=== PATIENT | male | born 1945 | race African-American/Black ===

== ENCOUNTER 2017-02-05 13:03 | Emergency (ER) | payer MEDICARE, OTHER ==
--- NOTE | 2017-02-05 13:18 | PDOC ---
History of Present Illness - General History Source: Patient Exam Limitations: No Limitations - History of Present Illness Initial Comments: 02/05/17 13:32 The patient is a 71 year old male, with a significant past medical history of diabetes mellitus, HTN and HLD, who presents to the emergency department with elevated blood sugar levels onset today. He reports that he was [place] and became [place]zy causing him a police crime scene technician to come over to help him. He notes that he also feels generally weak. The patient denies chest pain, shortness of breath and headache. Denies fever, chills, nausea, vomit, diarrhea and constipation. Denies dysuria, frequency, urgency and hematuria. Allergies: Penicillin Past surgical history: Mandular surgery (2015), spinal neck fusion (2007) Social history: Former smoker (quit 3 months ago) (50 year tobacco use). No alcohol or drug use reported PMD: Dr. Wong <Salvatore Perez - Last Filed: 02/05/17 13:32> <Mellisa Garsia - Last Filed: 02/05/17 15:36> - General Chief Complaint: Blood Sugar Problem Stated Complaint: BLOOD SUGAR PROBLEM Time Seen by Provider: 02/05/17 13:13 Past History <Salvatore Perez - Last Filed: 02/05/17 13:32> <Mellisa Garsia - Last Filed: 02/05/17 15:36> - Past Medical History Allergies/Adverse Reactions: Allergies Allergy/AdvReac Type Severity Reaction Status Date / Time Penicillins Allergy Verified 02/05/17 13:23 Review of Systems - Review of Systems Able to Perform ROS?: Yes Comments:: 02/05/17 13:32 GENERAL/CONSTITUTIONAL: (+) Generalized weakness. No fever or chills. HEAD, EYES, EARS, NOSE AND THROAT: No change in vision. No ear pain or discharge. No sore throat. CARDIOVASCULAR: No chest pain or shortness of breath RESPIRATORY: No cough, wheezing, or hemoptysis. GASTROINTESTINAL: No nausea, vomiting, diarrhea or constipation. GENITOURINARY: No dysuria, frequency, or change in urination. MUSCULOSKELETAL: No joint or muscle swelling or pain. No neck or back pain. SKIN: No rash NEUROLOGIC: (+) Dizziness. No headache, loss of consciousness, or change in strength/sensation. ENDOCRINE: No increased thirst. No abnormal weight change HEMATOLOGIC/LYMPHATIC: No anemia, easy bleeding, or history of blood clots. ALLERGIC/IMMUNOLOGIC: No hives or skin allergy. <Salvatore Perez - Last Filed: 02/05/17 13:32> *Physical Exam - Vital Signs Last Vital Signs Temp Pulse Resp BP Pulse Ox 98.1 F 79 18 122/67 100 02/05/17 13:14 02/05/17 13:14 02/05/17 13:14 02/05/17 13:14 02/05/17 13:14 - Physical Exam Comments: 02/05/17 13:32 GENERAL: Awake, alert, and fully oriented, in no acute distress HEAD: No signs of trauma, normocephalic, atraumatic EYES: PERRLA, EOMI, sclera anicteric, conjunctiva clear ENT: Auricles normal inspection, hearing grossly normal, nares patent, oropharynx clear without exudates. Moist mucosa NECK: Normal ROM, supple, no lymphadenopathy, JVD, or masses LUNGS: No distress, speaks full sentences, clear to auscultation bilaterally HEART: Regular rate and rhythm, normal S1 and S2, no murmurs, rubs or gallops, peripheral pulses normal and equal bilaterally. ABDOMEN: Soft, nontender, normoactive bowel sounds. No guarding, no rebound. No masses EXTREMITIES: Normal inspection, Normal range of motion, no edema. No clubbing or cyanosis. NEUROLOGICAL: Cranial nerves II through XII grossly intact. Normal speech, normal gait, no focal sensorimotor deficits SKIN: Warm, Dry, normal turgor, no rashes or lesions noted. <Salvatore Perez - Last Filed: 02/05/17 13:32> ED Treatment Course - LABORATORY CBC & Chemistry Diagram: 02/05/17 14:00 02/05/17 14:00 <Mellisa Garsia - Last Filed: 02/05/17 15:36> Medical Decision Making - Medical Decision Making 02/05/17 14:55 71-year-old male brought in by ambulance with complaint of feeling dizziness today. He had been walking outside and the temperature is in the 80s today. He is a diabetic and was walking down along the [place] going to [facility] when he started to feel dizzy. The police found him leaning on the ramp near the park and he was brought in. He is alert and oriented 3 -He had no specific complaints upon arrival PCP is Dr. Dubon Past medical history significant for diabetes, hypertension, hyperlipidemia Medications include Lantus 10 at nighttime, Advair, Spiriva, Lasix, simvastatin , metoprolol, lisinopril and gabapentin and naproxen Past surgical history see spine fusion in 2007, and a mandible fracture last year Social history [id number] tobacco states he quit 3 months ago. He denies alcohol Patient denied nausea, vomiting, diarrhea, chest pain, shortness of breath EKG is normal sinus rhythm at 77 bpm 02/05/17 15:32 Glucose is only 140. His bun was 25 and creatinine 1.5. No prior labs for comparison EKG is normal sinus rhythm at 77 Current is negative CBC was unremarkable. Patient received IV fluids and now he wants to go home <Mellisa Garsia - Last Filed: 02/05/17 15:36> *DC/Admit/Observation/Transfer - Attestations Scribe Attestion: 02/05/17 13:32 Documentation prepared by Salvatore Perez, acting as veterinary medical officer for Mellisa Garsia MD <Salvatore Perez - Last Filed: 02/05/17 13:32> <Mellisa Garsia - Last Filed: 02/05/17 15:36> Diagnosis at time of Disposition: Dizziness Type 2 diabetes mellitus with hyperglycemia Qualifiers: Diabetes mellitus ocean transportation intermediary insulin use: without chcf use Qualified Code(s ): E11.65 - Type 2 diabetes mellitus with hyperglycemia - Discharge Dispostion Disposition: HOME Condition at time of disposition: Stable - Patient Instructions Printed Discharge Instructions: DI for Hyperglycemia -- Adult, DI for Dizziness -Nonvertigo Additional Instructions: please follow up with DrGrasso this week Return for any recurrent or worsening symptoms
[2017-02-05 13:23] VITALS: BMI 26.6
[2017-02-05] MEDS ORDERED: SODIUM CHLORIDE 1,000 ML IV STA (13:38)
[2017-02-05 14:02] LABS: ARTERIAL BLD GAS O2 SATURATION 94.8 % (90-98.9); ARTERIAL BLOOD GAS BASE EXCESS 0.6 meq/l (-2-2); ARTERIAL BLOOD GAS HCO3 24.8 meq/L (22-26); ARTERIAL BLOOD GAS pH 7.41 (7.35-7.45)
[2017-02-05 14:03] LABS: ALLENS TEST POSITIVE; ART PUNCT SITE RIGHT RADIAL; LPM/O2% 21%; METHEMOGLOBIN 0.7 % (0.4-1.5); PT. ON O2? NO; TYPE OF O2 ROOM AIR
[2017-02-05 14:20] LABS: BASOPHIL 0.8 % (0-2.0); EOSINOPHIL 1.7 % (0-4.5); MCH 29.3 pg (25.7-33.7); MCHC 33.9 g/dl (32.0-35.9); MEAN CELL VOLUME 86.6 fl (80-96); MEAN PLT VOLUME 9.2 fl (7.5-11.1); PLATELET COUNT 182 K/MM3 (134-434); RDW 14.3 % (11.9-15.9); WHITE BLOOD COUNT 4.9 K/mm3 (4.0-10.0)
[2017-02-05 14:31] LABS: INR 1.12 (0.82-1.09); PROTHROMBIN TIME (PATIENT) 12.4 SEC (9.98-11.88)
[2017-02-05 14:56] LABS: ALBUMIN 4.4 g/dl (3.4-5.0); ANION GAP 9 (8-16); BILIRUBIN,TOTAL 0.3 mg/dL (0.2-1.0); CALCIUM 9.3 mg/dL (8.5-10.1); CO2 28 mmol/L (21-32); CREATININE 1.5 mg/dL (0.7-1.3); GLUCOSE,RANDOM 140 mg/dL (74-106); SGOT/AST 22 U/L (15-37); SGPT/ALT 25 U/L (12-78)
[2017-02-05 14:58] LABS: ALK PHOS 68 U/L (45-117); TROPONIN I < 0.02 ng/ml (0.00-0.05)
[2017-02-05 16:07] VITALS: BP 146/76; PULSE 56; TEMP 97.6
--- NOTE | 2017-02-05 20:07 | EKG ---
Test Reason : Blood Pressure : / mmHG Vent. Rate : 077 BPM Atrial Rate : 077 BPM P-R Int : 164 ms QRS Dur : 088 ms QT Int : 362 ms P-R-T Axes : 062 -01 035 degrees QTc Int : 409 ms NORMAL SINUS RHYTHM POSSIBLE LEFT ATRIAL ENLARGEMENT NO PREVIOUS ECGS AVAILABLE Confirmed by MAN DINH, MAGDALENO ([id number]) on 02/05/2017 8:06:50 PM Referred By: Confirmed By:MAGDALENO CONWAY MD
== END 2017-02-05 16:07 | disposition home or self-care (01) ==
LOC: JER 13:03
PROC: 3E0337Z Introduction of Electrolytic and Water Balance Substance into Peripheral Vein, Percutaneous Approach (ICD-10-PCS; principal; 2017-02-05)
DX: E11.65 Type 2 diabetes mellitus with hyperglycemia (principal); R42 Dizziness and giddiness; Z79.4 Long term (current) use of insulin; I10 Essential (primary) hypertension; E78.00 Pure hypercholesterolemia, unspecified
CPT/HCPCS: 36600; 80053; 82009; 82375; 82550; 82553; 82803; 83050; 84484; 85025; 85610; 93005; 93010; 96360; 99283-25

== ENCOUNTER 2019-07-03 12:52 | Emergency (ER) | payer MEDICARE, OTHER ==
[2019-07-03 13:02] VITALS: BP 148/69; PULSE 79; TEMP 98; BMI 29.5
[2019-07-03] MEDS ORDERED: FLUORESCEIN NA 1 EA STRIP ONE (13:27)
--- NOTE | 2019-07-03 14:16 | PDOC ---
History of Present Illness - General Chief Complaint: Eye Problem Stated Complaint: FOREIGN BODY IN RT EYE Time Seen by Provider: 07/03/19 13:14 History Source: Patient Exam Limitations: No Limitations - History of Present Illness Initial Comments: 07/03/19 14:10 73-year-old male with history of diabetes, hypertension, hyperlipidemia presents complaining of right eye pain. Patient states yesterday while walking indoors felt "something going to his eye "which he thought he removed and irrigated out after an eyewash at home. Continues having right eye pain with tearing. Wears corrective lenses. Denies any other injury, vision changes or complaints. ROS: GENERAL/CONSTITUTIONAL: No fever, chills, weakness, dizziness HEAD, EYES, EARS, NOSE AND THROAT: Right eye pain, no changes in vision, No ear pain or discharge, No sore throat CARDIOVASCULAR: No chest pain RESPIRATORY: No shortness of breath or cough GASTROINTESTINAL: No pain, nausea, vomiting, diarrhea or constipation GENITOURINARY: No dysuria MUSCULOSKELETAL: No neck or back pain SKIN: No rash NEUROLOGIC: No headache, vertigo, loss of consciousness, or loss of sensation PE: GENERAL: well-appearing, NAD HEAD: NCAT EYES: VA 20/30 OD, 20/25 OS, Pupils equal, round and reactive to light, minimal tearing noted to the right eye, flourescein uptake to right lower conjunctiva, no foreign body upon inverting the eyelid noted ENT: pharynx: no erythema, no exudate, uvula midline NECK: supple CHEST: nontender RESP: clear, no w/r/r CARDIO: rrr, no m/g/r ABD: +BS, soft, nontender, non distended BACK: no midline spinal ttp, no CVAT EXTREMITIES: Normal range of motion, no edema NEUROLOGICAL: Normal speech, normal gait SKIN: Warm, Dry 07/03/19 14:19 07/03/19 14:23 Is this a multiple visit Asthma Patient?: No Past History - Past Medical History Allergies/Adverse Reactions: Allergies Allergy/AdvReac Type Severity Reaction Status Date / Time Penicillins Allergy Verified 07/03/19 13:02 Home Medications: Ambulatory Orders Amlodipine Besylate [Norvasc -] 5 mg PO DAILY 06/17/17 Gabapentin 300 mg PO TID 06/17/17 Linagliptin [Tradjenta] 5 mg PO DAILY 06/17/17 Lisinopril 5 mg PO DAILY 06/17/17 Metoprolol Tartrate 25 mg PO DAILY 06/17/17 Naproxen [Naprosyn -] 500 mg PO BID 06/17/17 Omeprazole 20 mg PO DAILY 06/17/17 Salmeterol/Fluticasone [Advair 100Mcg/50Mcg -] 1 puff .ROUTE BID 06/17/17 Simvastatin 40 mg PO HS 06/17/17 Tamsulosin HCl 0.4 mg PO DAILY 06/17/17 Aspirin [ASA -] 81 mg PO DAILY tab.chew 06/19/17 Atorvastatin Ca [Lipitor] 20 mg PO HS tablet 06/19/17 Insulin (Levemir) [Levemir Vial] 12 units SQ HS ml 06/19/17 Insulin (Levemir) [Levemir Vial] 15 units SQ HS ml 06/19/17 Insulin Sliding Scale [Novolog Vial Sliding Scale -] 1 vial SQ TIDAC units 01/28 Lisinopril [Prinivil] 5 mg PO DAILY tablet 06/19/17 Meclizine HCl [Antivert -] 25 mg PO Q8H PRN #0 tablet 06/19/17 Salmeterol/Fluticasone [Advair 100Mcg/50Mcg -] 1 puff IH BID inhaler 06/19/17 Erythromycin 0.5% Eye Ointment [Erythromycin 0.5% Eye Ointment -] 1 applic OD TID 7 Days #1 tube 07/03/19 COPD: Yes Diabetes: Yes HTN: Yes Hypercholesterolemia: Yes - Psycho Social/Smoking Cessation Hx Smoking History: Never smoked Have you smoked in the past 12 months: No Number of Cigarettes Smoked Daily: 20 If you are a former smoker, when did you quit?: 11/2016 Information on smoking cessation initiated: No Hx Alcohol Use: No Drug/Substance Use Hx: No Substance Use Type: Marijuana Hx Substance Use Treatment: No *Physical Exam - Vital Signs Last Vital Signs Temp Pulse Resp BP Pulse Ox 98 F 79 18 148/69 99 07/03/19 12:58 07/03/19 12:58 07/03/19 12:58 07/03/19 12:58 07/03/19 12:58 Medical Decision Making - Medical Decision Making 11/20/19 14:17 73-year-old male history of diabetes, hypertension, hyperlipidemia complaining of right eye pain after feeling something enter his eye yesterday. positive fluorescein uptake to right side of the lower conjunctiva consistent with abrasion, no foreign body upon inverting the upper eyelid. As per patient's request I examined his upper eyelid 3 separate times, each time with the same finding. Patient insisting that he has the sensation of a foreign body on his upper eyelid therefore ELIDIA Cohn also examined the upper eyelid and reported the same finding. Ibuprofen 600 mg p.o. x1 Will send erythromycin ointment for right eye Patient understands that he must follow-up with ophthalmology within 1 to 2 days If worsening pain, eyelid swelling, discharge from the eye, fever, chills, vision changes return to the ED immediately. Discharge - Discharge Information Problems reviewed: Yes Clinical Impression/Diagnosis: Conjunctival abrasion Qualifiers: Encounter type: initial encounter Laterality: right Qualified Code(s): S05.01XA - Injury of conjunctiva and corneal abrasion without foreign body, right eye, initial encounter Condition: Stable Disposition: HOME - Admission No - Follow up/Referral Referrals: Jake Bhakta MD [Primary Care Provider] - - Patient Discharge Instructions Additional Instructions: Apply erythromycin ointment to right eye 3 times a day You must follow-up with an eye doctor within 1 to 2 days Return to the emergency department if worsening eye pain, eye discharge, fever, chills, vision changes or any worsening symptoms - Post Discharge Activity
[2019-07-03] MEDS ORDERED: IBUPROFEN 600 MG TABLET (FP) PO ONE (14:23)
== END 2019-07-03 14:53 | disposition home or self-care (01) ==
LOC: JERFT 12:52 → JER 12:52 → JERFT 14:53
DX: S05.01XA Injury of conjunctiva and corneal abrasion without foreign body, right eye, initial encounter (principal); E11.9 Type 2 diabetes mellitus without complications; I10 Essential (primary) hypertension; E78.5 Hyperlipidemia, unspecified; X58.XXXA Exposure to other specified factors, initial encounter; Y93.89 Activity, other specified; Y92.89 Other specified places as the place of occurrence of the external cause; Z88.0 Allergy status to penicillin; Z87.891 Personal history of nicotine dependence; J44.9 Chronic obstructive pulmonary disease, unspecified
CPT/HCPCS: 99281-25

== ENCOUNTER 2020-02-13 13:51 | Observation (INO) | payer MEDICARE, OTHER ==
--- NOTE | 2020-02-13 15:01 | PDOC ---
Attending Attestation - Resident Resident Name: Freed,Augie - ED Attending Attestation I have performed the following: I have examined & evaluated the patient, The case was reviewed & discussed with the resident, I agree w/resident's findings & plan, Exceptions are as noted - HPI HPI: 02/13/20 15:00 74 yo M h/o htn hld, here with c/o epigastric pain, chest pain. started few days ago. radiating around to his back. no sob no mod factors. describe as substernal chest tightness. no mod factors. does have occasional sob. notes at rest. had one episode 1 week ago, and one episode yesterday. quit smoking 2 yrs ago. no prior cardiac workup. currently pt pain is gone. also notes he take insulin three times. daily did eat breakfast but hasn't eaten anything since. did feel lightheaded currently. no leg swelling. no f/c no cough. pt mother has had a cva, grandfather with h/o mi. 02/13/20 16:45 02/13/20 16:51 - Physicial Exam PE: 02/13/20 16:47 awake alert lungs clear bilat heart rrr no mrg abd soft nt nd ext wwp awake alert nuero oriented x 3. - Medical Decision Making 02/13/20 16:49 74 yo male h/o htn dm, here with chest pain. differential acs, infection, pna. plan cxr ekg labs. will given asa . ekg NSR, left axis. no st elevation or depression. pt sugar was found to be 40, given juice, and dextrose. dr Jake mae, no prior cardiac workup. Heart Score/ECG Review - History History: Moderately suspicious - Electrocardiogram EKG: Normal - Age Age: >/= 65 - Risk Factors Risk Factors Heart Score: Yes Hx Hypertension, Yes Hx Diabetes, Yes Smoking History Based on the list above the patient has:: >/=3 risk factors or Hx atherosclerotic disease - Troponin Troponin: </= normal limit - Score Heart Score - Total: 5 #1 ECG reviewed & interpreted by me at: 15:01 General ECG Interpretation: Sinus Rhythm, Normal Rate (87), Normal Intervals Compared to previous ECG there are: Previous ECG unavail Discharge - Discharge Information Problems reviewed: Yes Clinical Impression/Diagnosis: Chest pain, Hypoglycemia - Follow up/Referral - Patient Discharge Instructions - Post Discharge Activity
[2020-02-13 15:11] LABS: BASO % 0.4 % (0-2.0); EOS % 0.7 % (0-4.5); HEMATOCRIT 41.9 % (35.4-49); HEMOGLOBIN 13.7 GM/dL (11.7-16.9); LYMPH % 22.5 % (8-40); MCH 29.9 pg (25.7-33.7); MCHC 32.7 g/dl (32.0-35.9); MEAN CELL VOLUME 91.3 fl (80-96); MEAN PLT VOLUME 9.2 fl (7.5-11.1); NEUT % 69.4 % (42.8-82.8); PLATELET COUNT 222 K/MM3 (134-434); RBC 4.59 M/mm3 (4.00-5.60); RDW 13.8 % (11.9-15.9); WHITE BLOOD COUNT 5.5 K/mm3 (4.0-10.0)
[2020-02-13] MEDS ORDERED: DEXTROSE 50%-WATER - 25 GM/50 ML VIAL ONE (15:27)
[2020-02-13] MEDS ORDERED: DEXTROSE 50%-WATER - 25 GM/50 ML VIAL IVPUSH ONE ×2 (15:28→17:52)
[2020-02-13] MEDS ORDERED: DEXTROSE 50%-WATER 25 GM/50 ML DISP.SYRIN ONE ×2 (15:28→17:52)
[2020-02-13] MEDS ORDERED: ASPIRIN 81 MG CHEWABLE TABLETS PO ONE (15:32)
[2020-02-13] MEDS ORDERED: ASPIRIN 81 MG CHEWABLE TABLETS ONE (15:35)
--- NOTE | 2020-02-13 15:40 | PDOC ---
History of Present Illness <Shelbie Miller - Last Filed: 02/13/20 17:26> - General History Source: Patient Exam Limitations: No Limitations - History of Present Illness Presenting Symptoms: Chest Pain <Augie Freed - Last Filed: 02/13/20 23:54> - General Chief Complaint: Chest Pain Stated Complaint: Chest Pain Time Seen by Provider: 02/13/20 14:44 - History of Present Illness Initial Comments: 02/13/20 15:35 74 y.o male with history of insulin dependent DM, HTN, COPD, and smoking p resented to the ED via EMS for chest pain. He reports having CP yesterday between 10:00 and 13:00, which was constant, midsternal pressure that radiated to the right ribs and back. He has a history of angina that's relieved with NTG but states this pain is different. He has not had any pain since it had subsided. Reports baseline SOB on exertion but denies worsening SOB. Denies fever, syncope, cough, orthopnea, LE edema, n/v, abdominal pain, diarrhea, constipation, or numbness/tingling. 02/13/20 15:39 (Augie Freed) Past History <Shelbie Miller - Last Filed: 02/13/20 17:26> - Medical History COPD: Yes Diabetes: Yes HTN: Yes Hypercholesterolemia: Yes Other medical history: Psoriasis - Psycho-Social/Smoking History Smoking History: Former smoker Have you smoked in the past 12 months: No Number of Cigarettes Smoked Daily: 20 If you are a former smoker, when did you quit?: 11/2016 Information on smoking cessation initiated: No - Substance Abuse Hx (Audit-C & DAST Scrn) How often the patient has a drink containing alcohol: Never Score: In Men: 4 or > Positive; In Women: 3 or > Positive: 0 Screen Result (Pos requires Nsg. Audit-10AR): Negative In the last yr the pt used illegal drug/Rx for NonMed reason: No Score: Yes response is considered Positive: 0 Screen Result (Positive result requires Nsg. DAST-10): Negative <Augie Freed - Last Filed: 02/13/20 23:54> - Medical History Allergies/Adverse Reactions: Allergies Allergy/AdvReac Type Severity Reaction Status Date / Time Penicillins Allergy Verified 02/13/20 14:19 Home Medications: Ambulatory Orders Amlodipine Besylate [Norvasc -] 2.5 mg PO DAILY 06/17/17 Simvastatin 40 mg PO HS 06/17/17 Aspirin [ASA -] 81 mg PO DAILY 02/13/20 Dulaglutide [Trulicity] 1.5 dose IM WEEKLY 02/13/20 Gabapentin 300 mg PO TID 02/13/20 Insulin (Levemir) [Levemir Vial] 40 units SQ HS 02/13/20 Insulin Sliding Scale [Novolog Vial Sliding Scale -] 21 units SQ TIDAC 02/13/20 Meclizine HCl [Antivert -] 12.5 mg PO Q8H PRN 02/13/20 Nortriptyline HCl [Pamelor -] 10 mg PO HS 02/13/20 Pantoprazole Sodium 40 mg PO DAILY 02/13/20 Review of Systems - Review of Systems Constitutional: No: Fever Respiratory: Yes: SOB with Exertion. No: Cough, Orthopnea, Shortness of Breath Cardiac (ROS): Yes: Chest Pain, Chest Tightness. No: Edema, Syncope ABD/GI: No: Constipated, Diarrhea, Nausea, Vomiting : No: Burning, Pain Neurological: No: Numbness, Tingling Hematologic/Lymphatic: No: Blood Clots <Augie Freed - Last Filed: 02/13/20 23:54> *Physical Exam - Physical Exam General Appearance: Yes: Appropriately Dressed. No: Apparent Distress HEENT: positive: EOMI, Hearing Grossly Normal Neck: positive: Trachea midline Respiratory/Chest: positive: Wheezing. negative: Chest Tender, Respiratory Distress Cardiovascular: positive: Regular Rhythm, Regular Rate, S1, S2 Gastrointestinal/Abdominal: positive: Soft. negative: Tender Musculoskeletal: positive: Normal Inspection Integumentary: positive: Dry, Warm Neurologic: positive: Alert <Augie Freed - Last Filed: 02/13/20 23:54> - Vital Signs Last Vital Signs Temp Pulse Resp BP Pulse Ox 97.8 F 75 16 168/86 99 02/13/20 21:56 02/13/20 21:56 02/13/20 22:56 02/13/20 21:56 02/13/20 22:56 Heart Score/ECG Review - History History: Moderately suspicious - Electrocardiogram EKG: Normal - Age Age: >/= 65 - Risk Factors Risk Factors Heart Score: Yes Hx Hypertension, Yes Hx Diabetes, Yes Smoking History Based on the list above the patient has:: >/=3 risk factors or Hx a therosclerotic disease - Troponin Troponin: </= normal limit - Score Heart Score - Total: 5 - ECG Intrepretation Rhythm: Regular Rhythm <Augie Freed - Last Filed: 02/13/20 23:54> ED Treatment Course - LABORATORY CBC & Chemistry Diagram: 02/13/20 14:55 02/13/20 14:55 <Shelbie Miller - Last Filed: 02/13/20 17:26> - LABORATORY CBC & Chemistry Diagram: 02/13/20 14:55 02/13/20 14:55 <Augie Freed - Last Filed: 02/13/20 23:54> - ADDITIONAL ORDERS Additional order review: Laboratory Results 02/13/20 02/13/20 02/13/20 17:50 16:01 15:21 Sodium Potassium Chloride Carbon Dioxide Anion Gap BUN Creatinine Est GFR (CKD-EPI)AfAm Est GFR (CKD-EPI)NonAf POC Glucometer 52 131 40 Random Glucose Calcium Total Bilirubin AST ALT Alkaline Phosphatase Creatine Kinase Creatine Kinase Index CK-MB (CK-2) Troponin I Total Protein Albumin Lipase 02/13/20 14:55 Sodium 142 Potassium 4.3 Chloride 104 Carbon Dioxide 30 Anion Gap 8 BUN 14.6 Creatinine 1.5 H Est GFR (CKD-EPI)AfAm 53.14 Est GFR (CKD-EPI)NonAf 45.85 POC Glucometer Random Glucose 62 L Calcium 9.7 Total Bilirubin 0.5 AST 25 ALT 32 Alkaline Phosphatase 65 Creatine Kinase 415 H Creatine Kinase Index 0.6 CK-MB (CK-2) 2.6 Troponin I < 0.02 Total Protein 7.4 Albumin 4.0 Lipase 111 02/13/20 02/13/20 02/13/20 17:50 16:01 15:21 RBC MCV MCHC RDW MPV Neutrophils % Lymphocytes % Monocytes % Eosinophils % Basophils % POC Glucometer 52 131 40 02/13/20 14:55 RBC 4.59 MCV 91.3 MCHC 32.7 RDW 13.8 MPV 9.2 Neutrophils % 69.4 D Lymphocytes % 22.5 D Monocytes % 7.0 Eosinophils % 0.7 Basophils % 0.4 POC Glucometer - Medications Given in the ED: ED Medications Discontinued Medications Generic Name Dose Route Start Last Admin Trade Name Jay PRN Reason Stop Dose Admin Aspirin 324 mg 02/13/20 15:32 02/13/20 15:37 Asa - PO 02/13/20 15:33 324 mg ONCE ONE Administration Dextrose 25 gm 02/13/20 15:28 02/13/20 15:34 D50w (Vial) - IVPUSH 02/13/20 15:29 25 gm NOW ONE Administration Dextrose 25 gm 02/13/20 17:52 02/13/20 17:56 D50w (Vial) - IVPUSH 02/13/20 17:53 25 gm NOW ONE Administration Dextrose/Sodium Chloride 1,000 mls @ 125 mls/hr 02/13/20 18:00 02/13/20 18:02 D5-1/2ns - IV 125 mls/hr ASDIR CARL Administration Dextrose/Sodium Chloride 1,000 mls @ 50 mls/hr 02/13/20 18:24 02/13/20 18:28 D5-1/2ns - IV 50 mls/hr ASDIR CARL Administration Discharge - Discharge Information Problems reviewed: Yes - Admission Yes <Shelbie Miller - Last Filed: 02/13/20 17:26> <Augie Freed - Last Filed: 02/13/20 23:54> - Discharge Information Clinical Impression/Diagnosis: Chest pain, Hypoglycemia
[2020-02-13 15:42] LABS: ALK PHOS 65 U/L (45-117); ANION GAP 8 MMOL/L (8-16); BILIRUBIN,TOTAL 0.5 mg/dL (0.2-1); BLOOD UREA NITROGEN 14.6 mg/dL (7-18); CALCIUM 9.7 mg/dL (8.5-10.1); CHLORIDE 104 mmol/L (98-107); CO2 30 mmol/L (21-32); CREATININE 1.5 mg/dL (0.55-1.3); GLUCOSE,RANDOM 62 mg/dL (74-106); LIPASE 111 U/L (73-393); POTASSIUM 4.3 mmol/L (3.5-5.1); SGOT/AST 25 U/L (15-37); SGPT/ALT 32 U/L (13-61); SODIUM 142 mmol/L (136-145); TOT PROT 7.4 g/dl (6.4-8.2)
--- NOTE | 2020-02-13 17:42 | HP ---
CHIEF COMPLAINT: chest pain PCP: Dr. Bhakta HISTORY OF PRESENT ILLNESS: 74 y.o male with history of insulin dependent DM, HTN, COPD, and smoking presented to the ED via EMS for chest pain. States chest pain started yesterday in the morning, was constant and substernal with radiation to the R side and back. States he has a history of chest pain after which his PCP prescribed SL Nitro. After his episode of chest pain, he took an ASA but did not take the SL nitro because he "forgot". Pain has since subsided. Has sob at baseline, but denies worsening montes. Denies fever, chills, n/v, abd pain, urinary/bowel symptoms. 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 Denies any cardiac history in the past. Of note, pt was found to have BGM in the 50s in the ED, was given D50 and it improved to ~200s. ER course was notable for: (1) Cr 1.5, CPK 415, Trops neg x1 (2) CXR neg, EKG showed NSR, left axis. no st elevation or depression. (3) Recent Travel: Denies PAST MEDICAL HISTORY: As per HPI PAST SURGICAL HISTORY: Social History: Smoking: Quit smoking 2 years ago Alcohol: Denies Drugs: Denies FAMILY HISTORY: Mother: CVA Grandfather: hx of [place] Allergies Penicillins Allergy (Verified 02/13/20 14:19) HOME MEDICATIONS: Home Medications Medication Instructions Recorded Amlodipine Besylate [Norvasc -] 2.5 mg PO DAILY 06/17/17 Simvastatin 40 mg PO HS 06/17/17 Insulin Sliding Scale [Novolog 1 vial SQ TIDAC units 06/19/17 Vial Sliding Scale -] Meclizine HCl [Antivert -] 25 mg PO Q8H PRN #0 tablet 06/19/17 Aspirin [ASA -] 81 mg PO DAILY 02/13/20 Dulaglutide [Trulicity] 1 dose IM WEEKLY 02/13/20 Insulin (Levemir) [Levemir Vial] 40 units SQ HS 02/13/20 REVIEW OF SYSTEMS CONSTITUTIONAL: Absent: fever, chills, diaphoresis, generalized weakness, malaise, loss of appetite, weight change HEENT: Absent: rhinorrhea, nasal congestion, throat pain, throat swelling, difficulty swallowing, mouth swelling, ear pain, eye pain, visual changes CARDIOVASCULAR: chest pain Absent: , syncope, palpitations, irregular heart rate, lightheadedness, peripheral edema RESPIRATORY: Absent: cough, shortness of breath, dyspnea with exertion, orthopnea, wheezing, stridor, hemoptysis GASTROINTESTINAL: Absent: abdominal pain, abdominal distension, nausea, vomiting, diarrhea, constipation, melena, hematochezia GENITOURINARY: Absent: dysuria, frequency, urgency, hesitancy, hematuria, flank pain, genital pain MUSCULOSKELETAL: Absent: myalgia, arthralgia, joint swelling, back pain, neck pain SKIN: Absent: rash, itching, pallor HEMATOLOGIC/IMMUNOLOGIC: Absent: easy bleeding, easy bruising, lymphadenopathy, frequent infections ENDOCRINE: Absent: unexplained weight gain, unexplained weight loss, heat intolerance, cold intolerance NEUROLOGIC: Absent: headache, focal weakness or paresthesias, dizziness, unsteady gait, seizure, mental status changes, bladder or bowel incontinence PSYCHIATRIC: Absent: anxiety, depression, suicidal or homicidal ideation, hallucinations. PHYSICAL EXAMINATION Vital Signs - 24 hr 02/13/20 02/13/20 14:16 15:37 Temperature 98.4 F Pulse Rate 93 H Pulse Rate [ 89 Apical] Respiratory 18 17 Rate Blood Pressure 140/78 Blood Pressure 150/70 [Left Arm] O2 Sat by Pulse 97 95 Oximetry (%) GENERAL: AAOx3. NAD. HEENT: AT/NC. EOMI. MMM. NECK: Normal range of motion, supple without lymphadenopathy, JVD, or masses. LUNGS: Good respiratory effort. +mild wheezes. No crackles. HEART: RRR. Normal S1, S2. No murmurs noted. No reproducible chest tenderness. ABDOMEN: Soft, NT/ND. Normoactive bs. No rebound tenderness/guarding. MUSCULOSKELETAL: Normal range of motion at all joints. No bony deformities or tenderness. No CVA tenderness. EXTREMITIES: No peripheral edema noted. Moves all extremities. NEUROLOGICAL: Cranial nerves II-XII intact. Normal speech. PSYCHIATRIC: Cooperative. Good eye contact. Appropriate mood and affect. SKIN: Warm, dry, normal turgor, no rashes or lesions noted, normal capillary refill. Laboratory Results - last 24 hr 02/13/20 02/13/20 02/13/20 14:55 14:55 15:21 WBC 5.5 RBC 4.59 Hgb 13.7 Hct 41.9 MCV 91.3 MCH 29.9 MCHC 32.7 RDW 13.8 Plt Count 222 D MPV 9.2 Absolute Neuts (auto) 3.8 Neutrophils % 69.4 D Lymphocytes % 22.5 D Monocytes % 7.0 Eosinophils % 0.7 Basophils % 0.4 Nucleated RBC % 0 Sodium 142 Potassium 4.3 Chloride 104 Carbon Dioxide 30 Anion Gap 8 BUN 14.6 Creatinine 1.5 H Est GFR (CKD-EPI)AfAm 53.14 Est GFR (CKD-EPI)NonAf 45.85 POC Glucometer 40 Random Glucose 62 L Calcium 9.7 Total Bilirubin 0.5 AST 25 ALT 32 Alkaline Phosphatase 65 Creatine Kinase 415 H Creatine Kinase Index 0.6 CK-MB (CK-2) 2.6 Troponin I < 0.02 Total Protein 7.4 Albumin 4.0 Lipase 111 02/13/20 16:01 WBC RBC Hgb Hct MCV MCH MCHC RDW Plt Count MPV Absolute Neuts (auto) Neutrophils % Lymphocytes % Monocytes % Eosinophils % Basophils % Nucleated RBC % Sodium Potassium Chloride Carbon Dioxide Anion Gap BUN Creatinine Est GFR (CKD-EPI)AfAm Est GFR (CKD-EPI)NonAf POC Glucometer 131 Random Glucose Calcium Total Bilirubin AST ALT Alkaline Phosphatase Creatine Kinase Creatine Kinase Index CK-MB (CK-2) Troponin I Total Protein Albumin Lipase ASSESSMENT/PLAN: 74 y.o male with history of insulin dependent DM, HTN, COPD, and smoking presented to the ED via EMS for chest pain, r/o ACS. #Chest pain, r/o ACS; No longer having chest pain. -Given ASA 324 x1 -Cardio consulted (sees Dr. Oh) -Echo ordered -Trops neg x1; will trend one more time -EKG showed NSR, no evid of ST-T changes -tele monitoring Cont home med: ASA 81 #[place]; Last Cr 1.2 (in 2017). May be -Will give IVf -trend BMP #IDDM; Hold home oral DM meds. -BGM/ISS ACHS. -Was hypoglycemic upon arrival, will hold home Levemir dose for now (at home takes Levemir 40U HS and Novolog 27U TID with meals) #HTN/HLD; Cont home meds: Amlo 2.5, Atorvastatin 20 #Hx of COPD; Stable, no acute issues. #Hx of Tobacco Use; Tobacco cessation counseling. #Prophylaxis DVT: SQH #FEN -IVf -recheck lytes in AM -Diabetic diet; NPO after midnight for possible stress in AM Dispo -admit to tele obs Visit type - Emergency Visit Emergency Visit: Yes ED Registration Date: 02/13/20 Care time: The patient presented to the Emergency Department on the above date and was hospitalized for further evaluation of their emergent condition. - New Patient This patient is new to me today: Yes Date on this admission: 02/13/20 - Critical Care Critical Care patient: No ATTENDING PHYSICIAN STATEMENT I saw and evaluated the patient. I reviewed the resident's note and discussed the case with the resident. I agree with the resident's findings and plan as documented. SUBJECTIVE: OBJECTIVE: ASSESSMENT AND PLAN:
[2020-02-13] MEDS ORDERED: DEXTROSE 5%-0.45% SALINE 1,000 ML IV SCH ×2 (18:00→18:24)
--- NOTE | 2020-02-13 18:51 | PN ---
Teaching Attending Note Name of Resident: Taylor Salazar ATTENDING PHYSICIAN STATEMENT I saw and evaluated the patient. I reviewed the resident's note and discussed the case with the resident. I agree with the resident's findings and plan as documented. SUBJECTIVE:Chest painYesterday 74 y.o male with history of insulin dependent DM, HTN, COPD, and smoking presented to the ED via EMS for chest pain. States chest pain started yesterday in the morning, was constant and substernal with radiation to the R side and back. States he has a history of chest pain after which his PCP prescribed SL Nitro. After his episode of chest pain, he took an ASA but did not take the SL nitro because he "forgot". Pain has since subsided. Has sob at baseline, but denies worsening montes. Denies fever, chills, n/v, abd pain, urinary/bowel symptoms. 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 Denies any cardiac history in the past. OBJECTIVE: Vital Signs Period Temp Pulse Resp BP Sys/Underwood Pulse Ox Last 24 Hr 97.9 F-98.4 F 89-94 17-21 140-152/70-85 95-97 Patient is comfortable HEENT normal Neck supple no JVD Lungs clear no wheezing Abdomen nontender no organomegaly bowel sounds normal Extremities no edema no cyanosis normal pulses Neurologically he is alert awake oriented, nonfocal Skin no rash noted ASSESSMENT AND PLAN: 74 y.o male with history of insulin dependent DM, HTN, COPD, and smoking presented to the ED via EMS for chest pain, r/o ACS. Chest pain rule out ACS We will put him on aspirin cardiac consult echo has been ordered trend troponin Hypertension diabetes history of COPD hyperlipidemia will start his home medications also insulin coverage before meals and at bedtime.
[2020-02-13 19:52] VITALS: BMI 30.4
[2020-02-13] MEDS: INSULIN SLIDING SCALE (NOVOLOG) 1 VIAL SQ SCH (21:32)
[2020-02-13] MEDS: HEPARIN NA (PORCINE) 5,000 UNITS/ML 1ML VIAL SQ SCH (21:32)
[2020-02-13] MEDS ORDERED: ATORVASTATIN CA 20 MG TABLET (FP) PO SCH (22:00)
[2020-02-13] MEDS: SODIUM CHLORIDE 1,000 ML IV SCH (23:30)
[2020-02-14] MEDS: HEPARIN NA (PORCINE) 5,000 UNITS/ML 1ML VIAL SQ SCH ×2 (05:51→13:02)
[2020-02-14] MEDS: INSULIN SLIDING SCALE (NOVOLOG) 1 VIAL SQ SCH ×2 (06:05→11:30)
[2020-02-14 06:41] LABS: BASO % 0.6 % (0-2.0); EOS % 1.6 % (0-4.5); HEMOGLOBIN 13.5 GM/dL (11.7-16.9); LYMPH % 28.5 % (8-40); MCH 29.6 pg (25.7-33.7); MCHC 32.9 g/dl (32.0-35.9); MEAN CELL VOLUME 90.1 fl (80-96); MEAN PLT VOLUME 8.9 fl (7.5-11.1); MONO % 6.6 % (3.8-10.2); NEUT % 62.7 % (42.8-82.8); PLATELET COUNT 212 K/MM3 (134-434); RBC 4.55 M/mm3 (4.00-5.60); RDW 13.7 % (11.9-15.9); WHITE BLOOD COUNT 4.6 K/mm3 (4.0-10.0)
[2020-02-14 07:07] LABS: ALBUMIN 3.7 g/dl (3.4-5.0); BILIRUBIN,TOTAL 0.6 mg/dL (0.2-1); BLOOD UREA NITROGEN 11.5 mg/dL (7-18); CALCIUM 9.4 mg/dL (8.5-10.1); CREATININE 1.2 mg/dL (0.55-1.3); MAGNESIUM 2.1 mg/dL (1.8-2.4); PHOSPHOROUS 3.6 mg/dL (2.5-4.9); POTASSIUM 4.2 mmol/L (3.5-5.1)
--- NOTE | 2020-02-14 08:06 | PN ---
Teaching Attending Note Name of Resident: Charla Jones ATTENDING PHYSICIAN STATEMENT I saw and evaluated the patient. I reviewed the resident's note and discussed the case with the resident. I agree with the resident's findings and plan as documented. SUBJECTIVE: Patient stated that he had right sided heart pain 2 days ago and he was told to go the emergency room by the insurance nurse. No further chest pain. OBJECTIVE: Vital Signs Temperature 98.0 F 02/14/20 06:00 Pulse Rate 69 02/14/20 06:00 Respiratory Rate 19 02/14/20 06:00 Blood Pressure 141/74 02/14/20 06:00 O2 Sat by Pulse Oximetry (%) 98 02/14/20 06:00 PE: per resident's note CBCD WBC 4.6 K/mm3 (4.0-10.0) 02/14/20 06:11 RBC 4.55 M/mm3 (4.00-5.60) 02/14/20 06:11 Hgb 13.5 GM/dL (11.7-16.9) 02/14/20 06:11 Hct 41.0 % (35.4-49) 02/14/20 06:11 MCV 90.1 fl (80-96) 02/14/20 06:11 MCHC 32.9 g/dl (32.0-35.9) 02/14/20 06:11 RDW 13.7 % (11.9-15.9) 02/14/20 06:11 Plt Count 212 K/MM3 (134-434) 02/14/20 06:11 MPV 8.9 fl (7.5-11.1) 02/14/20 06:11 CMP Sodium 140 mmol/L (136-145) 02/14/20 06:11 Potassium 4.2 mmol/L (3.5-5.1) 02/14/20 06:11 Chloride 105 mmol/L (98-107) 02/14/20 06:11 Carbon Dioxide 27 mmol/L (21-32) 02/14/20 06:11 Anion Gap 8 MMOL/L (8-16) 02/14/20 06:11 BUN 11.5 mg/dL (7-18) 02/14/20 06:11 Creatinine 1.2 mg/dL (0.55-1.3) 02/14/20 06:11 Random Glucose 126 mg/dL (74-106) H 02/14/20 06:11 Calcium 9.4 mg/dL (8.5-10.1) 02/14/20 06:11 Total Bilirubin 0.6 mg/dL (0.2-1) 02/14/20 06:11 AST 26 U/L (15-37) 02/14/20 06:11 ALT 32 U/L (13-61) 02/14/20 06:11 Alkaline Phosphatase 66 U/L (45-117) 02/14/20 06:11 Total Protein 7.0 g/dl (6.4-8.2) 02/14/20 06:11 Albumin 3.7 g/dl (3.4-5.0) 02/14/20 06:11 CARDIAC ENZYMES Creatine Kinase 422 U/L (26-308) H 02/14/20 01:40 Troponin I < 0.02 ng/ml (0.00-0.05) 02/14/20 01:40 Current Medications Generic Name Dose Route Start Last Admin Trade Name Jay PRN Reason Stop Dose Admin Amlodipine Besylate 2.5 mg 02/14/20 10:00 Norvasc - PO DAILY [facility] Aspirin 81 mg 02/14/20 10:00 Asa - PO DAILY [facility] Atorvastatin Calcium 20 mg 02/13/20 22:00 02/13/20 21:32 Lipitor - PO 20 mg HS CARL Administration Heparin Sodium (Porcine) 5,000 unit 02/13/20 22:00 02/14/20 05:51 Heparin - SQ 5,000 unit TID CARL Administration Sodium Chloride 1,000 mls @ 75 mls/hr 02/13/20 18:45 02/13/20 23:30 Normal Saline - IV 75 mls/hr ASDIR CARL Administration Insulin Aspart 1 vial 02/13/20 22:00 02/14/20 06:05 Novolog Vial Sliding Scale - SQ Not Given ACHS [facility] Protocol Home Medications Medication Instructions Recorded Amlodipine Besylate [Norvasc -] 2.5 mg PO DAILY 06/17/17 Simvastatin 40 mg PO HS 06/17/17 Aspirin [ASA -] 81 mg PO DAILY 02/13/20 Dulaglutide [Trulicity] 1.5 dose IM WEEKLY 02/13/20 Gabapentin 300 mg PO TID 07/02/20 Insulin (Levemir) [Levemir Vial] 40 units SQ HS 02/13/20 Insulin Sliding Scale [Novolog 21 units SQ TIDAC 02/13/20 Vial Sliding Scale -] Meclizine HCl [Antivert -] 12.5 mg PO Q8H PRN 02/13/20 Nortriptyline HCl [Pamelor -] 10 mg PO HS 02/13/20 Pantoprazole Sodium 40 mg PO DAILY 02/13/20 CXR: no significant interval change , no acute cardiopulmonary disease. ASSESSMENT AND PLAN: This patient is a 74yom with PMHx of insulin dependent DM, HTN, COPD, smoking presented to the ED for having chest pain r/o ACS. #atypical chest pain ; acs is ruled out: 3 sets of trops are negative, aspirin daily, echo pending, stress test a year ago, cardio consult appreciated. #[place]: Last Cr 1.2 (in 2017). on IVF x 1 liter #IDDM: BGM/ISS ACHS, patient was hypoglycemic upon arrival, reduce levemir to 20 units hs #HTN/HLD: Cont home meds: Amlo 2.5, Atorvastatin 20 #Hx of COPD: Stable, no acute issues. #Hx of Tobacco Use: Tobacco cessation counseling. DVT Px: SQH
[2020-02-14] MEDS ORDERED: amLODIPine BESYLATE 2.5 MG TABLET (FP) PO SCH (10:00)
[2020-02-14] MEDS ORDERED: ASPIRIN 81 MG CHEWABLE TABLETS PO SCH (10:00)
--- NOTE | 2020-02-14 10:45 | EKG ---
Test Reason : Blood Pressure : / mmHG Vent. Rate : 085 BPM Atrial Rate : 085 BPM P-R Int : 184 ms QRS Dur : 104 ms QT Int : 390 ms P-R-T Axes : 054 -17 051 degrees QTc Int : 464 ms NORMAL SINUS RHYTHM NORMAL ECG WHEN COMPARED WITH ECG OF 13-FEB-2020 14:10, NO SIGNIFICANT CHANGE WAS FOUND Confirmed by KVNG HERNANDEZ MD ([id number]) on 02/14/2020 10:45:25 AM Referred By: Confirmed By:KVNG HERNANDEZ MD
--- NOTE | 2020-02-14 10:49 | EKG ---
Test Reason : Blood Pressure : / mmHG Vent. Rate : 087 BPM Atrial Rate : 087 BPM P-R Int : 182 ms QRS Dur : 086 ms QT Int : 344 ms P-R-T Axes : 051 -29 046 degrees QTc Int : 413 ms NORMAL SINUS RHYTHM POSSIBLE ANTERIOR INFARCT , AGE UNDETERMINED VS LEAD POSITIONAL CHANGE ABNORMAL ECG WHEN COMPARED WITH ECG OF 15-JUN-2017 20:39, BORDERLINE CRITERIA FOR ANTERIOR INFARCT ARE NOW PRESENT Confirmed by KVNG HERNANDEZ MD ([id number]) on 02/14/2020 10:49:15 AM Referred By: Confirmed By:KVNG HERNANDEZ MD
[2020-02-14] MEDS: SODIUM CHLORIDE 1,000 ML IV SCH (13:22)
[2020-02-14 13:34] VITALS: BP 147/71; PULSE 79; TEMP 98.6
--- NOTE | 2020-02-14 14:23 | CON.CARD ---
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 Now admitted with atypical chest pain. pt seen and examined today in nad. denies any recurrent chest pain. no sob, palpitations, pnd, orthopnea, or LE edema. Cardiac Cath 07/19/18: 50% pLAD, 30% pLCx, 30% mRCA Echocardiogram 04/02/18: tds, nl la/ra, nl rv/lv size and systolic function, fcoav, minimal AR, mild eccentric MR, mild TR, LVEF 60%, PASP 30mmHg. Standing bp 108/70 Nuclear Regadenason Stress Test 04/03/18:No chest discomfort or ECG changes of ischemia after Regadeneson stress . The calculated left ventricular ejection fraction is 63%. The baseline ECG displays normal sinus rhythm. Stress ECG: No ischemic ECG changes were seen. Normal LV function. Normal perfusion of myocardium. Carotid Duplex 04/02/18: mild atherosclerosis but no stenosis. 24 hour Holteron 03/2018 23:17 hours of EKG data were analyzed The heart rates ranged from 47 BPM to 145 BPM, with an average of 79 BPM THe longest R-R interval was 1.6 sec Occasional APC's Occasional VPC's Occasional atrial pairs A three beat atrial run was noted Event Monitor 04/03/18-04/17/18: The patient was monitored for 359:41 hours, of which 308:13 hours were usable. Average heart rate for the monitored period was 78 BPM. Tachycardia was present for 6% of the readable data; Bradycardia was present for 6% of the readable data. No Pause(s) noted of 3 seconds or longer. 6 manually-triggered recording(s) posted with symptoms including Chest pain, Rapid HR/Palp/Flutter, Dizziness/Lightheaded. NSR and sinus tachycardia were seen in all manually triggered events. No arrhythmias were seen. Cardiac cath 07/19/18 Left Anterior Descending Prox LAD lesion is 50% stenosed. Left Circumflex Prox Cx lesion is 30% stenosed. Right Coronary Artery Mid RCA lesion is 30% stenosed. ECHO 04/02/18 Interpretation Summary Technically difficult study. Normal left atrial size. Normal left ventricular size. Normal left ventricular ejection fraction. Paradoxical septal motion. Estimated ejection fraction: 60 % Normal right atrial size. Normal right ventricular size. Normal right ventricular function. Fibrocalcific disease of the aortic valve without stenosis. Minimal aortic valve regurgitation. Mild mitral annular calcification. Eccentric mitral regurgitation, probably mild. Normal tricuspid valve. Mild tricuspid valve regurgitation. Normal pulmonic valve. Mild pulmonic valve regurgitation. Normal sized aortic root. No pericardial effusion. Doppler pattern suggests prolonged relaxation and normal left atrial pressure (8 - 14mmHg). PASP = 30 mmhg, estimated RAP 5 mmhg. - History Source History Provided By: Patient, Medical Record Limitations to Obtaining History: No Limitations - Past Medical History Cardio/Vascular: Yes: CAD, HTN Endocrine: Yes: Diabetes Mellitus - Alcohol/Substance Use Hx Alcohol Use: No - Smoking History Smoking history: Former smoker Have you smoked in the past 12 months: No Aproximately how many cigarettes per day: 20 If you are a former smoker, when did you quit?: 11/2016 - Social History ADL: Independent History of Recent Travel: No Home Medications - Allergies Allergies/Adverse Reactions: Allergies Allergy/AdvReac Type Severity Reaction Status Date / Time Penicillins Allergy Verified 02/13/20 14:19 - Home Medications Home Medications: Ambulatory Orders Amlodipine Besylate [Norvasc -] 2.5 mg PO DAILY 06/17/17 Simvastatin 40 mg PO HS 06/17/17 Aspirin [ASA -] 81 mg PO DAILY 02/13/20 Dulaglutide [Trulicity] 1.5 dose IM WEEKLY 02/13/20 Gabapentin 300 mg PO TID 02/13/20 Insulin (Levemir) [Levemir Vial] 40 units SQ HS 02/13/20 Insulin Sliding Scale [Novolog Vial Sliding Scale -] 27 units SQ TIDAC 02/13/20 Meclizine HCl [Antivert -] 12.5 mg PO Q8H PRN 02/13/20 Nortriptyline HCl [Pamelor -] 10 mg PO HS 02/13/20 Pantoprazole Sodium 40 mg PO DAILY 02/13/20 Family Medical History Family History: Denies Review of Systems - Review of Systems Constitutional: reports: No Symptoms Eyes: reports: No Symptoms HENT: reports: No Symptoms Neck: reports: No Symptoms Cardiovascular: reports: Chest Pain. denies: Edema, Palpitations, Shortness of Breath, Other Respiratory: reports: No Symptoms Gastrointestinal: reports: No Symptoms Genitourinary: reports: No Symptoms Breasts: reports: No Symptoms Reported Musculoskeletal: reports: No Symptoms Integumentary: reports: No Symptoms Neurological: reports: No Symptoms Endocrine: reports: No Symptoms Hematology/Lymphatic: reports: No Symptoms Psychiatric: reports: No Symptoms - Risk Factors Known Risk Factors: Yes: Diabetes Mellitus Vital Signs: Vital Signs Temperature 98.6 F 02/14/20 13:00 Pulse Rate 79 02/14/20 13:00 Respiratory Rate 20 02/14/20 13:00 Blood Pressure 147/71 02/14/20 13:00 O2 Sat by Pulse Oximetry (%) 100 02/14/20 09:24 Constitutional: Yes: No Distress, Calm Eyes: Yes: Conjunctiva Clear, EOM Intact, PERRL HENT: Yes: Atraumatic, Normocephalic Neck: Yes: Supple, Trachea Midline Respiratory: Yes: Regular, CTA Bilaterally. No: Rales, Rhonchi, SOB, Wheezes Gastrointestinal: Yes: Normal Bowel Sounds, Soft. No: Distention, Tenderness Cardiovascular: Yes: Regular Rate and Rhythm. No: Bradycardia, Tachycardia, Pulse Irregular, Gallop, Rub, Varicosities JVD: No Carotid Bruit: No PMI: Non-Displaced Heart Sounds: Yes: S1, S2. No: Split S2, S3, S4, Clicks, Gallop, Rub, Bruit Murmur: No: Systolic Murmur, Diastolic Murmur Musculoskeletal: Yes: WNL Extremities: Yes: WNL Edema: No Peripheral Pulses WNL: Yes Peripheral Pulses: 2+ Left Doralis Pedis, 2+ Right Dorsalis Pedis Neurological: Yes: Alert, Oriented Psychiatric: Yes: Alert, Oriented - Other Data Labs, Other Data: CBC, BMP 02/14/20 06:11 02/14/20 06:11 Troponin, BNP 02/13/20 02/13/20 02/14/20 14:55 21:15 01:40 Troponin I < 0.02 < 0.02 < 0.02 Troponin, BNP 02/13/20 02/13/20 02/14/20 14:55 21:15 01:40 Troponin I < 0.02 < 0.02 < 0.02 normal sinus rhythm. normal ecg. 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 Chest pain-atypical -not c/w acs -known non-obs CAD on cardiac cath 07/2018 -ecg wnl -cardiac enzymes wnl -tele no arrhythmias -no recurrent chest pain -cont ASA and statin Pt is acceptable for discharge home from a cardiac standpoint. No additional inpatient cardiac testing is needed at this time. Outpatient fup with Dr. Oh, pt will call for sooner appt.
--- NOTE | 2020-02-14 16:15 | DS ---
Physical Exam: SUBJECTIVE: Patient seen and examined OBJECTIVE: Vital Signs Period Temp Pulse Resp BP Sys/Underwood Pulse Ox Last 24 Hr 97.8 F-98.6 F 69-94 16-21 141-168/71-89 96-100 PHYSICAL EXAM GENERAL: The patient is awake, alert, and fully oriented, in no acute distress. HEAD: Normal with no signs of trauma. EYES: PERRL, extraocular movements intact, sclera anicteric, conjunctiva clear. ENT: Ears normal, nares patent, oropharynx clear without exudates, moist mucous membranes. NECK: Trachea midline, full range of motion, supple. LUNGS: Breath sounds equal, clear to auscultation bilaterally, no wheezes, no crackles, no accessory muscle use. HEART: Regular rate and rhythm, S1, S2 without murmur, rub or gallop. ABDOMEN: Soft, nontender, nondistended, normoactive bowel sounds, no guarding, no rebound, no hepatosplenomegaly, no masses. EXTREMITIES: 2+ pulses, warm, well-perfused, no edema. NEUROLOGICAL: Cranial nerves II through XII grossly intact. Normal speech, gait not observed. PSYCH: Normal mood, normal affect. SKIN: Warm, dry, normal turgor, no rashes or lesions noted. LABS Laboratory Results - last 24 hr 02/13/20 02/13/20 02/13/20 17:50 18:20 21:15 WBC RBC Hgb Hct MCV MCH MCHC RDW Plt Count MPV Absolute Neuts (auto) Neutrophils % Lymphocytes % Monocytes % Eosinophils % Basophils % Nucleated RBC % Sodium Potassium Chloride Carbon Dioxide Anion Gap BUN Creatinine Est GFR (CKD-EPI)AfAm Est GFR (CKD-EPI)NonAf POC Glucometer 52 186 Random Glucose Calcium Phosphorus Magnesium Total Bilirubin AST ALT Alkaline Phosphatase Creatine Kinase 448 H Creatine Kinase Index 0.5 CK-MB (CK-2) 2.5 Troponin I < 0.02 Total Protein Albumin 02/13/20 02/14/20 02/14/20 21:31 01:40 06:11 WBC 4.6 RBC 4.55 Hgb 13.5 Hct 41.0 MCV 90.1 MCH 29.6 MCHC 32.9 RDW 13.7 Plt Count 212 MPV 8.9 Absolute Neuts (auto) 2.9 Neutrophils % 62.7 Lymphocytes % 28.5 D Monocytes % 6.6 Eosinophils % 1.6 D Basophils % 0.6 Nucleated RBC % 0 Sodium Potassium Chloride Carbon Dioxide Anion Gap BUN Creatinine Est GFR (CKD-EPI)AfAm Est GFR (CKD-EPI)NonAf POC Glucometer 166 Random Glucose Calcium Phosphorus Magnesium Total Bilirubin AST ALT Alkaline Phosphatase Creatine Kinase 422 H Creatine Kinase Index 0.5 CK-MB (CK-2) 2.4 Troponin I < 0.02 Total Protein Albumin 02/14/20 06:11 WBC RBC Hgb Hct MCV MCH MCHC RDW Plt Count MPV Absolute Neuts (auto) Neutrophils % Lymphocytes % Monocytes % Eosinophils % Basophils % Nucleated RBC % Sodium 140 Potassium 4.2 Chloride 105 Carbon Dioxide 27 Anion Gap 8 BUN 11.5 Creatinine 1.2 Est GFR (CKD-EPI)AfAm 69.60 Est GFR (CKD-EPI)NonAf 60.05 POC Glucometer Random Glucose 126 H Calcium 9.4 Phosphorus 3.6 Magnesium 2.1 Total Bilirubin 0.6 AST 26 ALT 32 Alkaline Phosphatase 66 Creatine Kinase Creatine Kinase Index CK-MB (CK-2) Troponin I Total Protein 7.0 Albumin 3.7 HOSPITAL COURSE: Date of Admission:02/13/20 Date of Discharge: 02/14/20 Discharge Summary Problems reviewed: Yes Reason For Visit: HYPOGLYCEMIA ACUTE CORONARY SYNDROME Condition: Good - Instructions Diet, Activity, Other Instructions: You came into the hospital for chest pain. You were evaluated by the aircraft engineer and had cardiac monitoring. You are stable to go home. Please continue your home medications as prescribed. Please continue to take baby aspirin Please follow up with your primary care physician in 1 week to monitor your improvement. Please follow up with your aircraft engineer, Dr. Oh in 1 week to monitor your heart as you may need further testing. Please continue to follow a low sodium healthy diet. If you have any new, worsening, or concerning symptoms such as worsening shortness of breath, chest pain, nausea, vomiting then please return to the ED or call 911. Referrals: Jake Bhakta MD [Primary Care Provider] - Oneil Oh MD [Staff Physician] - Disposition: HOME - Home Medications Comprehensive Discharge Medication List: Ambulatory Orders Amlodipine Besylate [Norvasc -] 2.5 mg PO DAILY 06/17/17 Simvastatin 40 mg PO HS 06/17/17 Aspirin [ASA -] 81 mg PO DAILY 02/13/20 Dulaglutide [Trulicity] 1.5 dose IM WEEKLY 02/13/20 Gabapentin 300 mg PO TID 02/13/20 Insulin (Levemir) [Levemir Vial] 40 units SQ HS 02/13/20 Insulin Sliding Scale [Novolog Vial Sliding Scale -] 27 units SQ TIDAC 02/13/20 Meclizine HCl [Antivert -] 12.5 mg PO Q8H PRN 02/13/20 Nortriptyline HCl [Pamelor -] 10 mg PO HS 02/13/20 Pantoprazole Sodium 40 mg PO DAILY 02/13/20 ATTENDING PHYSICIAN STATEMENT I saw and evaluated the patient. I reviewed the resident's note and discussed the case with the resident. I agree with the resident's findings and plan as documented. SUBJECTIVE: OBJECTIVE: ASSESSMENT AND PLAN:
--- NOTE | 2020-02-16 14:17 | EKG ---
Test Reason : Blood Pressure : / mmHG Vent. Rate : 071 BPM Atrial Rate : 071 BPM P-R Int : 184 ms QRS Dur : 096 ms QT Int : 392 ms P-R-T Axes : 058 -18 045 degrees QTc Int : 425 ms NORMAL SINUS RHYTHM LOW VOLTAGE QRS BORDERLINE ECG WHEN COMPARED WITH ECG OF 13-FEB-2020 18:05, NO SIGNIFICANT CHANGE WAS FOUND Confirmed by GAYE BALLARD MD ([id number]) on 02/16/2020 2:17:02 PM Referred By: Nicolas VUONG Confirmed By:GAYE BALLARD MD
== END 2020-02-14 16:47 | disposition home or self-care (01) | DRG 313 ==
LOC: JER 13:51 → JERBED 17:33 → UNDOADMOB 17:51 → INTOOBSV 17:51 → JERBED 19:26 → J4S 19:26 → UNDODISOB 02-14 16:47
PROVIDERS: ADMIT Internal Medicine; ATTEND Internal Medicine
DX: R07.89 Other chest pain (principal); N17.9 Acute kidney failure, unspecified; E11.649 Type 2 diabetes mellitus with hypoglycemia without coma; I10 Essential (primary) hypertension; E78.5 Hyperlipidemia, unspecified; J44.9 Chronic obstructive pulmonary disease, unspecified; Z79.4 Long term (current) use of insulin; G47.33 Obstructive sleep apnea (adult) (pediatric); I25.10 Atherosclerotic heart disease of native coronary artery without angina pectoris; Z87.891 Personal history of nicotine dependence; Z88.0 Allergy status to penicillin
CPT/HCPCS: 36415; 71045-TC-FY; 80053; 82550; 82553; 82962; 83690; 83735; 84100; 84484; 85025; 93005; 93010; 94660; 99285-25; G0378; J1644; U0003

== ENCOUNTER 2020-05-29 14:14 | Inpatient (IN) | payer MEDICARE, OTHER ==
--- OUTSIDE RECORDS SUMMARY | 2020-05-29 15:30 | XMS ---
:1945 Author Organization [facility] Care Team Providers Name Role Phone SCOTT DINH, WILLI Unavailable Mak Sarai Unavailable Re-disclosure Warning The records that you are about to access may contain information from federally- assisted alcohol or drug abuse programs. If such information is present, then the following federally mandated warning applies: This information has been disclosed to you from records protected by federal confidentiality rules (42 CFR part 2). The federal rules prohibit you from making any further disclosure of this information unless further disclosure is expressly permitted by the written consent of the person to whom it pertains or as otherwise permitted by 42 CFR part 2. A general authorization for the release of medical or other information is NOT sufficient for this purpose. The Federal rules restrict any use of the information to criminally investigate or prosecute any alcohol or drug abuse patient.The records that you are about to access may contain highly sensitive health information, the redisclosure of which is protected by Article 27-F of the [facility] Public Health law. If you continue you may haveaccess to information: Regarding HIV / AIDS; Provided by facilities licensed or operated by the [facility] Office of Mental Health; or Provided by the [facility] Office for People With Developmental Disabilities. If such information is present, then the following [facility] mandated warning applies: This information has been disclosed to you from confidential records which are protected by state law. State law prohibits you from making any further disclosure of this information without the specific written consent of the person to whom it pertains, or as otherwise permitted by law. Any unauthorized further disclosure in violation of state law may result in a fine or shelter sentence or both. A general authorization for the release of medical or other information is NOT sufficient authorization for further disclosure. Encounters Encounter Providers Location Date Indications Data Source(s ) Outpatient<t Attender: Vinh 07/05/ [facility] 2018 ([place] ID="[facility] 03:18: Neighborhood [facility] 00 PM Health Cente r) tionID0">PAT EST - IENT 07/05/ ADVOCACY</td 2018 ><td>[facility] 11:59: [place]</td> 00 PM <td>[facility]</td>< td> 9</td><td></ td> Outpatient<t Attender: Vinh 07/05/ Conjunctivitis - Right [facility] 2018 [facility] - ([place] ID="[facility]nirali [facility] 09:30: Right [facility] 00 AM [facility]) tionID0">OFF EST - Right [facility] ICE 07/05/ VISIT</td><t 2018 d>EADS 04:56: SCOTT 04 PM </td><td>[facility]</td>< td> 9</td><td><c ontent ID="encounte rDiagnosisID 0-0">Presbyo helen</content >, <content ID="encounte rDiagnosisID 0-1">Conjunc tivitis - Right Eye</content ></td> Conjunctivitis - Right Eye Presbyopia Conjunctivitis - Right Eye [facility]opia Conjunctivitis - Right Eye [facility]opia Outpatient<td Attender: Vinh 07/03/2019 RENOVO ID="encounterTypeDescriptionID1">PATIENT [facility] 03:09: 00 PM (Nic Romero ADVOCACY</td><td>[facility] EST - [facility]</td><td>[facility] 2018 Health Center</td><td>07/03/2019</td><td></td> 11:59:0 0 PM Center) EST Insurance Providers Payer name Policy type / Policy ID Covered Covered democrat's Policy Plan Coverage type democrat ID relationship to Oneal Information oneal HEALTH FIRST [id number] SP [id number] M MEDICAID [id number] SP [id number] ASHUTOSH [id number] SP [id number] MEDICARE ADV PLAN JENIFFER MEDICARE [id number] SP [id number] [place] Care Individual 0 Self 0 [place] Policy [place] Care Individual 0 Self 0 [place] Policy [place] Care Individual 0 Self 0 [place] Policy Dental [id number] S [id number] [employer] MCRE MNGD Care Nacho Vision [id number] S [id number] MCRE MNGD Care Medicare-Blue [id number] S [id number] Cross/Blue Shield Medicare [id number] S [id number] [facility] Medicaid [id number] S [id number] Regular Clinic Visit Medicaid [id number] S [id number] Special Billing Ashutosh [id number] S [id number] 600 Medicare Surgeries/Procedures Procedure Description Date Indications Data Source(s) [facility] qualified [facility] Wrap Visit 07/05/2019 [facility] ([facility]) Established Patient 12:00:00 AM [facility] visit, established [facility] Ce nter) patient; a medically-necessary, pmjy-gj-[id number] encounter (one-on-one) between an established patient and a fq practitioner during which time one or more fq services are rendered and includes a typical bundle of medicare-covered services that would be furnished animal hospital office supervisor to a patient receiving a fq visit Results ID Date Data Source [id number] 02/13/2020 05:36:00 PM EDT [facility] Name Value Range Interpretation Description Data Sup porting Code Source(s) Document(s ) SARS [facility] CORONAVIRUS 2 RNA This lab was ordered by [facility] and reported by [facility]. ID Date Data Source [id number] 07/22/2019 03:19:34 PM EST [facility] ([place] [id number] [facility]) Name Value Range Interpretation Description Data Source(s ) Supporting Code Document(s ) No Results No Results No Results JASON ([facility]ed For [facility]) ID Date Data Source [id number] 07/22/2019 03:18:23 PM EST [place] [facility] ([place] [id number] [facility]) Name Value Range Interpretation Description Data Source(s ) Supporting Code Document(s ) No Results No Results No Results JASON ([facility]) ID Date Data Source [id number] 07/05/2019 04:56:02 PM EST [facility] [facility] ([place] [id number] [facility]) Name Value Range Interpretation Description Data Source(s ) Supporting Code Document(s ) No Results No Results No Results JASON ([facility]) Procedure
--- NOTE | 2020-05-29 16:04 | PDOC ---
History of Present Illness - General Chief Complaint: Lightheaded Stated Complaint: DIZZINESS Time Seen by Provider: 05/29/20 14:47 History Source: Patient Exam Limitations: No Limitations - History of Present Illness Initial Comments: 05/29/20 15:55 74M PMH HTN, HLD, DM BIBEMS from home with dizziness, nausea, and vomiting. Pt woke up at 6am and felt world was spinning and unsteady when he stood up. Subsequently laid back down without LOC. Pt had tried to get up again and felt severe symptoms again with diaphoresis, n/v so he sat on ground. Denies falls, head strike, LOC. Pt states he had one episode of black emesis. h/o dark black stool which his PCP has eval'd, he is on iron. Denies vision changes, hearing changes, numbness, tingling, weakness, cp/sob. Pt endorses frequently marleny- horses and shooting pain in the LLE. PCN allergy. Aid at bedside, called EMS after finding pt on ground vomiting. Past History - Medical History Allergies/Adverse Reactions: Allergies Allergy/AdvReac Type Severity Reaction Status Date / Time Penicillins Allergy Verified 05/29/20 15:30 Home Medications: Ambulatory Orders Amlodipine Besylate [Norvasc -] 2.5 mg PO DAILY 06/17/17 Simvastatin 40 mg PO HS 06/17/17 Aspirin [ASA -] 81 mg PO DAILY 02/13/20 Dulaglutide [Trulicity] 1.5 dose IM WEEKLY 02/13/20 Gabapentin 300 mg PO TID 02/13/20 Insulin (Levemir) [Levemir Vial] 40 units SQ HS 02/13/20 Insulin Sliding Scale [Novolog Vial Sliding Scale -] 27 units SQ TIDAC 02/13/20 Meclizine HCl [Antivert -] 12.5 mg PO Q8H PRN 02/13/20 Nortriptyline HCl [Pamelor -] 10 mg PO HS 02/13/20 Pantoprazole Sodium 40 mg PO DAILY 02/13/20 Anemia: No Asthma: No Cancer: No Cardiac Disorders: (HTN) CVA: No COPD: Yes CHF: No Dementia: No Diabetes: Yes GI Disorders: No Disorders: (BPH) HTN: Yes Hypercholesterolemia: Yes Liver Disease: No Seizures: No Thyroid Disease: No - Psycho-Social/Smoking History Smoking History: Never smoked Have you smoked in the past 12 months: No Number of Cigarettes Smoked Daily: 20 If you are a former smoker, when did you quit?: 11/2016 - Substance Abuse Hx (Audit-C & DAST Scrn) How often the patient has a drink containing alcohol: Never Score: In Men: 4 or > Positive; In Women: 3 or > Positive: 0 Screen Result (Pos requires Nsg. Audit-10AR): Negative Review of Systems - Review of Systems Comments:: CONSTITUTIONAL: Denies F / C HEENT: + dizziness. Denies changes in vision / hearing, sore throat, rhinorrhea RESP: Denies SOB, cough CARD: Denies chest pain, palpitations GI: + n/v, abd. discomfort : Denies dysuria NEURO: Denies numbness, tingling, weakness MSK: Denies back pain. + chronic unchanged hip pain. SKIN: Denies rashes *Physical Exam - Vital Signs Last Vital Signs Temp Pulse Resp BP Pulse Ox 97.8 F 71 18 171/86 H 96 05/29/20 14:15 05/29/20 14:15 05/29/20 14:15 05/29/20 14:15 05/29/20 14:15 - Physical Exam GEN: Well appearing, NAD, comfortable. AAOx3. HEENT: NC/AT, CN II-XII grossly intact, EOMI, PERRLA. No facial asymmetry. EAC and TM nl b/l. Normal voice. Supple neck, FROM, neg TTP midline. NEURO: Moving all extremities well. 5/5 UE strength b/l. 5/5 LE strength b/l. Sensation symmetric and intact throughout. CV: S1/S2, RRR, no m/r/g LUNG: CTAB, no wheezes, crackles, rales, rhonchi. GI: discomfort on palpation of the suprapubic and epigastric regions; soft, nondistended, +BS MSK: TTP of the plantar aspect of the left foot to very light touch, pulses intact, FROM of the L foot, ankle, knee. 2+ distal pulses. No LE edema. No obvious deformities of all extremities. SKIN: Warm, dry, no rashes appreciated. PSYCH: Normal mood and affect. ED Treatment Course - LABORATORY CBC & Chemistry Diagram: 05/29/20 15:51 05/29/20 15:51 - ADDITIONAL ORDERS Additional order review: Laboratory Results 05/29/20 15:49 POC Glucometer 137 05/29/20 15:49 POC Glucometer 137 - RADIOLOGY Radiology Studies Ordered: Category Date Time Status CHEST X-RAY PORTABLE* [RAD] Stat Radiology 05/29/20 15:41 Ordered Medical Decision Making - Medical Decision Making 74M BIBEMS for dizziness, n/v since this AM. Black emesis, is on iron. Abdominal discomfort on exam. DDX - electrolyte / metabolic abnormalities, UTI, intraabdominal abscess vs enteritis, colitis; less likely ACS. ?arrhythmia - CBC, CMP, Lipase, Lactic, Cardiac markers, Coags - UA, UC - CT A/P - Protonix 05/29/20 17:45 EKG 17:17 HR 71, NSR, axis and intervals wnl, no BRETT/D, no TWI 05/29/20 20:17 pt was reassessed and he states that meclizine typically helps his symptoms but he did not achieve the same effects today, still symptomatic when upright to urinate. Labs reviewed CT A/P report reviewed admit for further w/u Discharge - Discharge Information Problems reviewed: Yes Clinical Impression/Diagnosis: Abdominal pain, Vomiting, Dizziness Condition: Fair - Admission Yes - Follow up/Referral - Patient Discharge Instructions - Post Discharge Activity
[2020-05-29 16:13] LABS: BASO % 0.4 % (0-2.0); EOS % 0.1 % (0-4.5); HEMATOCRIT 42.6 % (35.4-49); HEMOGLOBIN 14.6 GM/dL (11.7-16.9); LYMPH % 9.5 % (8-40); MCH 30.6 pg (25.7-33.7); MCHC 34.4 g/dl (32.0-35.9); MEAN CELL VOLUME 89.2 fl (80-96); MEAN PLT VOLUME 9.2 fl (7.5-11.1); MONO % 4.3 % (3.8-10.2); NEUT % 85.7 % (42.8-82.8); PLATELET COUNT 197 K/MM3 (134-434); RBC 4.78 M/mm3 (4.00-5.60); RDW 13.7 % (11.9-15.9); WHITE BLOOD COUNT 7.5 K/mm3 (4.0-10.0)
[2020-05-29] MEDS ORDERED: PANTOPRAZOLE SODIUM 40 MG VIAL IVPUSH ONE (16:22)
[2020-05-29 16:28] LABS: INR 1.08 (0.83-1.09); PROTHROMBIN TIME (PATIENT) 13.3 SEC (9.7-13.0)
[2020-05-29 16:31] LABS: ACTIVATED PTT 29.2 SECONDS (25.2-36.5)
[2020-05-29 16:37] LABS: CHLORIDE 102 mmol/L (98-107); POTASSIUM 4.3 mmol/L (3.5-5.1); SODIUM 138 mmol/L (136-145)
[2020-05-29 16:40] LABS: BLOOD UREA NITROGEN 8.4 mg/dL (7-18); CALCIUM 9.2 mg/dL (8.5-10.1); GLUCOSE,RANDOM 133 mg/dL (74-106)
[2020-05-29] MEDS ORDERED: PANTOPRAZOLE SODIUM 40 MG VIAL ONE (16:40)
[2020-05-29 16:41] LABS: ANION GAP 6 MMOL/L (8-16); CO2 30 mmol/L (21-32); LIPASE 81 U/L (73-393)
[2020-05-29 16:43] LABS: CREATININE 1.1 mg/dL (0.55-1.3); SGPT/ALT 35 U/L (13-61)
[2020-05-29 16:44] LABS: SGOT/AST 25 U/L (15-37)
[2020-05-29 16:45] LABS: BILIRUBIN,TOTAL 0.6 mg/dL (0.2-1); TOT PROT 7.8 g/dl (6.4-8.2)
[2020-05-29 16:46] LABS: ALK PHOS 79 U/L (45-117)
[2020-05-29] MEDS ORDERED: SODIUM CHLORIDE 0.9% 500 ML INFUS.BAG IV ONE (17:41)
--- NOTE | 2020-05-29 18:44 | PDOC ---
Documentation entered by Char Costa SCRIBE, acting as scribe for Megan Santo MD. Megan Santo MD: This documentation has been prepared by the scribe, Char Costa SCRIBE, under my direction and personally reviewed by me in its entirety. I confirm that the documentation accurately reflects all work, treatment, procedures, and medical decision making performed by me. Attending Attestation - Resident Resident Name: RaymondJamie - ED Attending Attestation I have performed the following: I have examined & evaluated the patient, The case was reviewed & discussed with the resident, I agree w/resident's findings & plan, Exceptions are as noted - HPI HPI: 05/29/20 15:18 Patient is a 74 year old male with a significant past medical history of diabetes, hypertension, hyperlipidemia, vertigo on meclizine who presents to the ED, BIBA, with abdominal pain, diaphoresis, dizziness, nausea, and vomiting since 6am this morning. Patient stated when he woke up this morning he felt that the "world was unsteady" and experienced diaphoresis, nausea/vomiting. Aid at bedside called EMS after witnessing the patient vomit on the ground. Pt and aide report the patients emesis was black in color - pt had 3 episodes of dark emesis. Pt also reports black stool x1 this AM. Pt took meclizine prior to EMS arrival and dizziness has resolved. At this time, pt reports persistent diffuse abd pain. Can not localize where the pain is worse. He is also reporting b/l LE charley horse cramps intermittently since this AM. Patient denies: LOC, weakness, falls, head trauma, any vision changes, SOB, chest pain, focal weakness/numbness, F/C, dysuria, urgency, frequency any other related symptoms. Allergies: Penicillins - Physicial Exam PE: 05/29/20 15:19 GENERAL: Awake, alert, and fully oriented, in no acute distress but appears uncomfortable HEAD: No signs of trauma EYES: PERRLA, EOMI, sclera anicteric, conjunctiva clear ENT: Oropharynx clear without exudates. Moist mucosa NECK: Normal ROM, supple, no lymphadenopathy, JVD, or masses LUNGS: Breath sounds equal, clear to auscultation bilaterally. No wheezes, and no crackles HEART: Regular rate and rhythm, normal S1 and S2, no murmurs, rubs or gallops ABDOMEN: Soft, diffuse ttp, normoactive bowel sounds. No guarding, no rebound. No masses EXTREMITIES: Normal range of motion, no edema. No clubbing or cyanosis. No cords, erythema, or tenderness. 2+ DP pulses b/l LE, 2+ radial pulses b/l UE NEUROLOGICAL: Normal speech, cranial nerves intact, negative pronator drift, 5/5 strength in all 4 extremities, normal sensation to light touch in all 4 extremities, normal cerebellar exam, normal gait SKIN: Warm, Dry, normal turgor, no rashes or lesions noted. - Medical Decision Making 05/29/20 16:41 74yo M presents to the ED with diffuse abd pain a/w N/V and dark emesis + BM Pt also with dizziness earlier (could not describe room spinning or lightheadedness) that improved after meclizine Concern for UGIB - pt not on blood thinners Stool occult pending Plan for labs, CTAP given ttp, PPI, likely admit With regards to dizziness, N/V, will obtain CTH to eval for ICH or other acute path. Pt is neuro intact 05/29/20 19:00 Labs unremarkable so far CTAP pending UA pending Stool occult pending Case signed out to overnight attending Dr. Fine for further dispo/mgmt Discharge - Discharge Information Problems reviewed: Yes Clinical Impression/Diagnosis: GIB (gastrointestinal bleeding), Abdominal pain, Vomiting, Dizziness - Follow up/Referral Referrals: Jake Bhakta MD [Primary Care Provider] - - Patient Discharge Instructions - Post Discharge Activity
[2020-05-29 20:03] LABS: PH,URINE >= 9.0 (5.0-8.0); URINE APPEARANCE CLEAR; URINE BILIRUBIN NEGATIVE (NEGATIVE); URINE COLOR YELLOW; URINE GLUCOSE (UA) NEGATIVE (NEGATIVE); URINE KETONE NEGATIVE (NEGATIVE); URINE LEUK ESTERASE NEGATIVE (NEGATIVE); URINE NITRITE NEGATIVE (NEGATIVE); URINE PROTEIN TRACE (NEGATIVE); URINE UROBILINOGEN 0.2 mg/dL (0.2-1.0)
[2020-05-29 20:06] LABS: EPI CELLS 7 /uL (0-25.1); HYALINE CASTS 0 /uL (0-3.1); URINE BACTERIA 492 /uL (0-1359); URINE RBC 2 /uL (0-23.9); URINE WBC 7 /uL (0-25.8)
[2020-05-29] MEDS ORDERED: MECLIZINE HCL 25 MG TABLET (FP) PO ONE (20:13)
--- NOTE | 2020-05-29 20:31 | PN ---
Teaching Attending Note Name of Resident: Ger Bundy ATTENDING PHYSICIAN STATEMENT I saw and evaluated the patient. I reviewed the resident's note and discussed the case with the resident. I agree with the resident's findings and plan as documented. SUBJECTIVE: 74yoM with history of HTN, HLD, T2DM, COPD, and vertigo who presents with one day of nausea, vomiting, and dizziness. Patient has been in his usual state of health but awoke this morning feeling diaphoretic and nauseous. He developed an intense room spinning sensation ("like I was in a whirlwind") when he sat up, worse than his usual vertigo. He was unable to take his usual meclizine or other medications due to nausea. Had a dark bowel movement (normal per patient) and several episodes of dark emesis. He was able to walk only while leaning against the wall. Denies focal weakness, falls, chest pain, palpitations, syncope. Notes severe tingling with light touch on his left foot to lower calf, which is new. The vertigo improved suddenly and spontaneously after several hours but he continued to feel nauseous. When his aide arrived in the afternoon patient was vomiting and EMS was called. Patient notes this episode of vertigo was much more severe in intensity and lasted longer than his usual symptoms. Patient was in no acute distress on arrival to the ED, labs unremarkable including Hgb 14.6, BUN 8.4, creatinine 1.1. FOBT was negative. CT head obtained showing no acute findings and CT abd/pelvis showed an umbilical hernia and minimal bibasilar atelectasis but no other acute findings. Patient received meclizine and pantoprazole with improvement in symptoms, currently feels well with no further emesis or vertigo. Reports echo was done as outpatient within the past month. Dietetic Assistant: Dr. Jolley OBJECTIVE: Vital Signs (72 hours) 05/29/20 05/29/20 05/29/20 14:15 15:15 18:37 Temperature 97.8 F 98.4 F Pulse Rate 71 Pulse Rate [ 72 Right] Respiratory 18 18 Rate Blood Pressure 171/86 H Blood Pressure 150/82 [Right Arm] O2 Sat by Pulse 96 99 98 Oximetry (%) EXAM Gen: awake, alert, NAD HEENT: PERRL. No nystagmus with extreme gaze. Poor dentition CV: RRR, no MRG appreciated Resp: Faint wheezes bilateral bases. Unlabored Abd: Soft, ND. Mild tenderness to deep palpation epigastric area without rebound/guarding. +BS Ext: No edema Neuro: CN II-XII grossly intact. Strength 5/5 all extremities. No pronator drift. Finger to nose normal. Sensation intact throughout, tingling pain to light touch over left foot and lower calf Psych: AOx3, appropriate mood/affect. Laboratory Results - last 24 hr 05/29/20 05/29/20 05/29/20 15:45 15:49 15:51 WBC 7.5 RBC 4.78 Hgb 14.6 Hct 42.6 MCV 89.2 MCH 30.6 MCHC 34.4 RDW 13.7 Plt Count 197 MPV 9.2 Absolute Neuts (auto) 6.4 Neutrophils % 85.7 H D Lymphocytes % 9.5 D Monocytes % 4.3 Eosinophils % 0.1 D Basophils % 0.4 Nucleated RBC % 0 PT with INR INR PTT (Actin FS) Sodium Potassium Chloride Carbon Dioxide Anion Gap BUN Creatinine Est GFR (CKD-EPI)AfAm Est GFR (CKD-EPI)NonAf POC Glucometer 137 Random Glucose Lactic Acid 1.5 Calcium Total Bilirubin AST ALT Alkaline Phosphatase Creatine Kinase Creatine Kinase Index CK-MB (CK-2) Troponin I Total Protein Albumin Lipase Urine Color Urine Appearance Urine pH Ur Specific [place] Urine Protein Urine Glucose (UA) Urine Ketones Urine Blood Urine Nitrite Urine Bilirubin Urine Urobilinogen Ur Leukocyte Esterase Urine WBC (Auto) Urine RBC (Auto) Urine Casts (Auto) U Epithel Cells (Auto) Urine Bacteria (Auto) Stool Occult Blood Blood Type Antibody Screen 05/29/20 05/29/20 05/29/20 15:51 15:51 15:51 WBC RBC Hgb Hct MCV MCH MCHC RDW Plt Count MPV Absolute Neuts (auto) Neutrophils % Lymphocytes % Monocytes % Eosinophils % Basophils % Nucleated RBC % PT with INR 13.30 H INR 1.08 PTT (Actin FS) 29.2 Sodium 138 Potassium 4.3 Chloride 102 Carbon Dioxide 30 Anion Gap 6 L BUN 8.4 Creatinine 1.1 Est GFR (CKD-EPI)AfAm 77.32 Est GFR (CKD-EPI)NonAf 66.71 POC Glucometer Random Glucose 133 H Lactic Acid Calcium 9.2 Total Bilirubin 0.6 AST 25 ALT 35 Alkaline Phosphatase 79 Creatine Kinase 476 H Creatine Kinase Index 0.7 CK-MB (CK-2) 3.7 H Troponin I < 0.02 Total Protein 7.8 Albumin 4.0 Lipase 81 Urine Color Urine Appearance Urine pH Ur Specific [place] Urine Protein Urine Glucose (UA) Urine Ketones Urine Blood Urine Nitrite Urine Bilirubin Urine Urobilinogen Ur Leukocyte Esterase Urine WBC (Auto) Urine RBC (Auto) Urine Casts (Auto) U Epithel Cells (Auto) Urine Bacteria (Auto) Stool Occult Blood Blood Type O POSITIVE Antibody Screen Negative 05/29/20 05/29/20 18:02 19:30 WBC RBC Hgb Hct MCV MCH MCHC RDW Plt Count MPV Absolute Neuts (auto) Neutrophils % Lymphocytes % Monocytes % Eosinophils % Basophils % Nucleated RBC % PT with INR INR PTT (Actin FS) Sodium Potassium Chloride Carbon Dioxide Anion Gap BUN Creatinine Est GFR (CKD-EPI)AfAm Est GFR (CKD-EPI)NonAf POC Glucometer Random Glucose Lactic Acid Calcium Total Bilirubin AST ALT Alkaline Phosphatase Creatine Kinase Creatine Kinase Index CK-MB (CK-2) Troponin I Total Protein Albumin Lipase Urine Color Yellow Urine Appearance Clear Urine pH >= 9.0 H D Ur Specific [place] 1.006 L Urine Protein Trace Urine Glucose (UA) Negative Urine Ketones Negative Urine Blood Negative Urine Nitrite Negative Urine Bilirubin Negative Urine Urobilinogen 0.2 Ur Leukocyte Esterase Negative Urine WBC (Auto) 7 Urine RBC (Auto) 2 Urine Casts (Auto) 0 U Epithel Cells (Auto) 7 Urine Bacteria (Auto) 492 Stool Occult Blood Negative Blood Type Antibody Screen Imaging, EKG reviewed in chart ASSESSMENT AND PLAN: 74yoM with history of HTN, HLD, T2DM, COPD, and vertigo who presents with one day of nausea, vomiting, and dizziness with concern for posterior circulation TIA. 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 GI bleed Reports prior work up for chronic dark stools with normal EGD recently Low suspicion for acute/active GI bleed given negative FOBT, Hgb and BUN within normal, and no further episodes Takes Celebrex and occasional Aleve for chronic hip pain Received pantoprazole IV in ED - Trend H/H - hold Celebrex - Tylenol PRN T2DM: half home dose levemir tonight given poor PO intake; ISS COPD: continue home inhalers HTN: continue home meds HLD: continue statin DVT ppx: Lovenox subq
[2020-05-29] MEDS ORDERED: MECLIZINE HCL 25 MG TABLET (FP) ONE (21:05)
--- OUTSIDE RECORDS SUMMARY | 2020-05-29 21:56 | XMS ---
:1945 Author Organization [facility] Care Team Providers Name Role Phone CSOTT DINH, WILLI Unavailable Mak Sarai Unavailable Re-disclosure [...] is protected by Article 27-F of the [facility] Public Health law. If you continue you may haveaccess to information: Regarding HIV / AIDS; Provided by facilities licensed or operated by the [facility] Office of Mental Health; or Provided by the [facility] Office for People With Developmental Disabilities. If such information is present, then the following [facility] mandated warning applies: This information has [...] law may result in a fine or nursing home sentence or both. A general authorization for the release of medical or other information is NOT sufficient authorization for further disclosure. Encounters Encounter Providers Location Date Indications Data Source(s ) Outpatient<t Attender: Vinh 07/05/ [facility] 2018 ([place] ID="[facility] 03:18: Neighborhood [facility] 00 PM Health Cente r) tionID0">PAT EST - IENT 07/05/ ADVOCACY</td 2018 ><td>[facility] 11:59: [place]</td> 00 PM <td>[facility]</td>< td> 9</td><td></ td> Outpatient<t Attender: Vinh 07/05/ Conjunctivitis - Right [facility] 2018 [facility] - ([place] ID="[facility] 09:30: Right [facility] 00 AM [facility]) tionID0">OFF EST - Right [facility] ICE 07/05/ VISIT</td><t 2018 d>[place] 04:56: SCOTT 04 PM </td><td>Y EST [facility]</td>< td> 9</td><td><c ontent ID="encounte rDiagnosisID 0-0">Presbyo helen</content >, <content ID="encounte rDiagnosisID 0-1">Conjunc tivitis - Right Eye</content ></td> Conjunctivitis - Right Eye Pres[facility]opia Conjunctivitis - Right Eye [facility] Conjunctivitis - Right Eye [facility] Outpatient<td Attender: Vinh 07/03/2019 P[place] Y[place] ID="encounterTypeDescriptionID1">PATIENT [facility] 03:09: 00 PM (Nic Romero ADVOCACY</td><td>[facility] EST - [facility]</td><td>[facility] 2018 Health Center</td><td>07/03/2019</td><td></td> 11:59:0 0 PM Center) EST Insurance Providers Payer name Policy type / Policy ID Covered Covered democrat's Policy Plan Coverage type democrat ID relationship to Oneal Information oneal HEALTH FIRST [id number] SP [id number] M MEDICAID [id number] SP [id number] ASHUTOSH [id number] SP [id number] MEDICARE ADV PLAN JENIFFER MEDICARE [id number] SP [id number] [place] Individual 0 Self 0 [place] Policy [place] Care Individual 0 Self 0 [place] Policy [place] Care Individual 0 Self 0 [place] Policy Dental [id number] S [id number] [employer] MCRE MNGD Care Nacho Vision [id number] S [id number] MCRE MNGD Care Medicare-Blue [id number] S [id number] Cross/Blue Shield Medicare [id number] S [id number] [facility] Services Medicaid [id number] S [id number] Regular Clinic Visit Medicaid [id number] S [id number] Special Billing Ashutosh [id number] S [id number] Medicare Surgeries/Procedures Procedure Description Date Indications Data Source(s) [facility] qualified [facility] Wrap Visit 07/05/2019 [facility] Established Patient 12:00:00 AM [facility] visit, established [facility]) patient; a medically-necessary, cjne-ts-cplp encounter (one-on-one) between an established patient and a fq practitioner during which time one or more fq services are rendered and includes a typical bundle of medicare-covered services that would be furnished hydrogenation still operator to a patient receiving a fq visit Results ID Date Data Source [id number] 02/13/2020 05:36:00 PM EDT [facility] Name Value Range Interpretation Description Data Sup porting Code Source(s) Document(s ) SARS [facility] CORONAVIRUS 2 RNA This lab was ordered by [facility] and reported by [facility]. ID Date Data Source [id number] 07/22/2019 03:19:34 PM EST [place] Y ([place] [id number] [facility]) Name Value Range Interpretation Description Data Source(s ) Supporting Code Document(s ) No Results No Results No Results JASON ([facility]ed For [facility]) ID Date Data Source [id number] 07/22/2019 03:18:23 PM EST [place] ([place] [id number] [facility]) Name Value Range Interpretation Description Data Source(s ) Supporting Code Document(s ) No Results No Results No Results JASON ([facility]) ID Date Data Source [id number] 07/05/2019 04:56:02 PM EST [place] Y ([place] [id number] [facility]) Name Value Range Interpretation Description Data Source(s ) Supporting Code Document(s ) No Results No Results No Results JASON ([facility]) Procedure
[2020-05-29] MEDS ORDERED: SODIUM CHLORIDE 1,000 ML IV SCH (22:00)
[2020-05-29] MEDS ORDERED: ALBUTEROL SO4 2.5/IPRATROPIUM 0.5 INH SOL 3 ML VIAL.NEB. NEB ONE (22:02)
--- NOTE | 2020-05-29 22:10 | HP ---
CHIEF COMPLAINT: Dizziness PCP: Jake Hill HISTORY OF PRESENT ILLNESS: This is a 74 y/o M with a PMHx of HTN, HLD, DM BIBEMS from home c/o dizziness, nausea, and vomiting X 3. Pt woke up drenched in sweat and got up felt dizzy like the room was spinning and unsteady when he stood up. Subsequently, he laid back down without LOC. Pt had tried to get up again and felt severe symptoms again with diaphoresis, n/v so he went to bathroom thinking having a BM would help but he continued to have dizziness. Furthermore, pt admits to having midepigastric tenderness slightly and belched the night before burped a bitter tasting substance. Denies falls, head strike, palpitations, chest pain, sob. Pt admits to taking night time dose of levemir 40 HS and states the symptoms are similar to when he has low blood sugar and that he was unable to eat any food since yesterday early evening. Pt states he had one episode of black emesis. Pt has h/o dark black stool which his PCP has alonso'ketan, he is on iron tablet and told its normal. Pt admits to having an EGD less than a year ago and told it was normal and to take protonix. Denies vision changes, hearing changes, numbness, tingling, weakness, cp/sob. ER course was notable for: (1) normal CXR, CT head, and CT abdomen pelvis. (2)normal wbc, orthostatic vital signs s/p 500 ns bolus negative (3)ekg nsr, ck and ckmb slightly elevated Recent Travel: denies PAST SURGICAL HISTORY: 2007 cervical fusion (c6-c7), 2016- face plate placed s/p fall and since been removed but screw left in that per patient is MRI compatible Social History: Smokin/2 ppd X 30 yrs quit in 2016 Alcohol:none Drugs: none Allergies Penicillins Allergy (Verified 05/29/20 15:30) HOME MEDICATIONS: Home Medications Medication Instructions Recorded Amlodipine Besylate [Norvasc -] 2.5 mg PO DAILY 06/17/17 Simvastatin 40 mg PO HS 06/17/17 Aspirin [ASA -] 81 mg PO DAILY 02/13/20 Dulaglutide [Trulicity] 1.5 dose IM WEEKLY 02/13/20 Gabapentin 300 mg PO TID 02/13/20 Insulin (Levemir) [Levemir Vial] 40 units SQ HS 02/13/20 Insulin Sliding Scale [Novolog 27 units SQ TIDAC 02/13/20 Vial Sliding Scale -] Meclizine HCl [Antivert -] 12.5 mg PO Q8H PRN 02/13/20 Nortriptyline HCl [Pamelor -] 10 mg PO HS 02/13/20 Pantoprazole Sodium 40 mg PO DAILY 02/13/20 REVIEW OF SYSTEMS Negative except as above PHYSICAL EXAMINATION Vital Signs - 24 hr 05/29/20 05/29/20 05/29/20 14:15 15:15 18:37 Temperature 97.8 F 98.4 F Pulse Rate 71 Pulse Rate [ 72 Right] Respiratory 18 18 Rate Blood Pressure 171/86 H Blood Pressure 150/82 [Right Arm] O2 Sat by Pulse 96 99 98 Oximetry (%) 05/29/20 05/29/20 20:28 20:49 Temperature Pulse Rate Pulse Rate [ 76 76 Right] Respiratory 18 18 Rate Blood Pressure Blood Pressure 158/87 158/87 [Right Arm] O2 Sat by Pulse 96 96 Oximetry (%) GENERAL: Awake, alert, and fully oriented, in no acute distress. Mask covering most of his face. HEAD: Normal with no signs of trauma. EYES: Pupils equal, round and reactive to light, extraocular movements intact, sclera anicteric, conjunctiva clear. No lid lag. LUNGS: Breath sounds equal, end expiratory wheezes appreciated b/l, no crackles. No accessory muscle use. HEART: Regular rate and rhythm, normal S1 and S2 without murmur, rub or gallop. ABDOMEN: Soft, mild ttp in midepigastrium, normoactive BS throughout. LOWER EXTREMITIES: 2+ pulses, warm, well-perfused. No calf tenderness. No per ipheral edema. NEUROLOGICAL: Cranial nerves II-XII grossly intact. Normal speech. slightly unsteady gait upon evaluation PSYCHIATRIC: Cooperative. Good eye contact. Appropriate mood and affect. SKIN: Warm, dry . Laboratory Results - last 24 hr 05/29/20 05/29/20 05/29/20 15:45 15:49 15:51 WBC 7.5 RBC 4.78 Hgb 14.6 Hct 42.6 MCV 89.2 MCH 30.6 MCHC 34.4 RDW 13.7 Plt Count 197 MPV 9.2 Absolute Neuts (auto) 6.4 Neutrophils % 85.7 H D Lymphocytes % 9.5 D Monocytes % 4.3 Eosinophils % 0.1 D Basophils % 0.4 Nucleated RBC % 0 PT with INR INR PTT (Actin FS) Sodium Potassium Chloride Carbon Dioxide Anion Gap BUN Creatinine Est GFR (CKD-EPI)AfAm Est GFR (CKD-EPI)NonAf POC Glucometer 137 Random Glucose Lactic Acid 1.5 Calcium Total Bilirubin AST ALT Alkaline Phosphatase Creatine Kinase Creatine Kinase Index CK-MB (CK-2) Troponin I Total Protein Albumin Lipase Urine Color Urine Appearance Urine pH Ur Specific [place] Urine Protein Urine Glucose (UA) Urine Ketones Urine Blood Urine Nitrite Urine Bilirubin Urine Urobilinogen Ur Leukocyte Esterase Urine WBC (Auto) Urine RBC (Auto) Urine Casts (Auto) U Epithel Cells (Auto) Urine Bacteria (Auto) Stool Occult Blood Blood Type Antibody Screen 05/29/20 05/29/20 05/29/20 15:51 15:51 15:51 WBC RBC Hgb Hct MCV MCH MCHC RDW Plt Count MPV Absolute Neuts (auto) Neutrophils % Lymphocytes % Monocytes % Eosinophils % Basophils % Nucleated RBC % PT with INR 13.30 H INR 1.08 PTT (Actin FS) 29.2 Sodium 138 Potassium 4.3 Chloride 102 Carbon Dioxide 30 Anion Gap 6 L BUN 8.4 Creatinine 1.1 Est GFR (CKD-EPI)AfAm 77.32 Est GFR (CKD-EPI)NonAf 66.71 POC Glucometer Random Glucose 133 H Lactic Acid Calcium 9.2 Total Bilirubin 0.6 AST 25 ALT 35 Alkaline Phosphatase 79 Creatine Kinase 476 H Creatine Kinase Index 0.7 CK-MB (CK-2) 3.7 H Troponin I < 0.02 Total Protein 7.8 Albumin 4.0 Lipase 81 Urine Color Urine Appearance Urine pH Ur Specific [place] Urine Protein Urine Glucose (UA) Urine Ketones Urine Blood Urine Nitrite Urine Bilirubin Urine Urobilinogen Ur Leukocyte Esterase Urine WBC (Auto) Urine RBC (Auto) Urine Casts (Auto) U Epithel Cells (Auto) Urine Bacteria (Auto) Stool Occult Blood Blood Type O POSITIVE Antibody Screen Negative 05/29/20 05/29/20 05/29/20 18:02 19:30 21:14 WBC RBC Hgb Hct MCV MCH MCHC RDW Plt Count MPV Absolute Neuts (auto) Neutrophils % Lymphocytes % Monocytes % Eosinophils % Basophils % Nucleated RBC % PT with INR INR PTT (Actin FS) Sodium Potassium Chloride Carbon Dioxide Anion Gap BUN Creatinine Est GFR (CKD-EPI)AfAm Est GFR (CKD-EPI)NonAf POC Glucometer 116 Random Glucose Lactic Acid Calcium Total Bilirubin AST ALT Alkaline Phosphatase Creatine Kinase Creatine Kinase Index CK-MB (CK-2) Troponin I Total Protein Albumin Lipase Urine Color Yellow Urine Appearance Clear Urine pH >= 9.0 H D Ur Specific [place] 1.006 L Urine Protein Trace Urine Glucose (UA) Negative Urine Ketones Negative Urine Blood Negative Urine Nitrite Negative Urine Bilirubin Negative Urine Urobilinogen 0.2 Ur Leukocyte Esterase Negative Urine WBC (Auto) 7 Urine RBC (Auto) 2 Urine Casts (Auto) 0 U Epithel Cells (Auto) 7 Urine Bacteria (Auto) 492 Stool Occult Blood Negative Blood Type Antibody Screen ASSESSMENT/PLAN: This is a 74 y/o M with a PMHx of HTN, HLD, DM BIBEMS from home c/o dizziness, nausea, and vomiting X 3. Pt woke up drenched in sweat and got up felt dizzy like the room was spinning and unsteady when he stood up. Subsequently, he laid back down without LOC. 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 carmona - fall risk precautions, seizure, aspiration precautions #Epigastric pain - CT abdomen negative for any acute pathology just rt and lt basilar discoid atelectasis vs scarring noted and umbilical hernia with fat in it. - recent EGD normal - continue protonix 40 daily - FOBT negative, episode of dark stool but pt on iron per patients pcp its normal for him - H/H stable - no signs of bleeding appreciated - avoid nsaids at this time, day team to investigate EGD report if concern for GI bleed however low suspicion given normal BUN and stable H/H. #IDDM - will cut in half the levemir home dose - start 20 levemir HS until pt has a meal - bgm achs - insulin sliding scale ACHS - A1C in am #Htn - continue lisinopril 5mg #COPD - continue home meds - not hypoxic at this time - no signs of acute exacerbation DVT ppx: Lovenox 40 daily Family Medical History Family History: Unremarkable Visit type - Medication Review Med list reviewed for High Risk Meds patients 65 and older: Yes - Emergency Visit Emergency Visit: Yes Care time: The patient presented to the Emergency Department on the above date and was hospitalized for further evaluation of their emergent condition. - New Patient This patient is new to me today: Yes Date on this admission: 05/29/20 - Critical Care Critical Care patient: No ATTENDING PHYSICIAN STATEMENT I saw and evaluated the patient. I reviewed the resident's note and discussed the case with the resident. I agree with the resident's findings and plan as documented. SUBJECTIVE: OBJECTIVE: ASSESSMENT AND PLAN:
[2020-05-29] MEDS ORDERED: MECLIZINE HCL 25 MG TABLET (FP) PO PRN (22:28)
[2020-05-29] MEDS ORDERED: LACTATED RINGERS SOLUTION 1,000 ML/1,000 ML INFUS.BAG IV SCH (22:45)
[2020-05-29] MEDS ORDERED: NITROGLYCERIN SUBLINGUAL 1/150 0.4 MG TAB SL PRN (22:47)
[2020-05-29] MEDS ORDERED: ENOXAPARIN NA (PORCINE) 40 MG/0.4 ML DISP.SYRIN SQ ONE (23:53)
[2020-05-29] MEDS: ENOXAPARIN NA (PORCINE) 40 MG/0.4 ML DISP.SYRIN SQ SCH (23:59)
[2020-05-30 06:46] LABS: BASO % 0.4 % (0-2.0); EOS % 0.6 % (0-4.5); HEMATOCRIT 42.1 % (35.4-49); HEMOGLOBIN 14.4 GM/dL (11.7-16.9); LYMPH % 25.1 % (8-40); MCH 30.4 pg (25.7-33.7); MCHC 34.3 g/dl (32.0-35.9); MEAN CELL VOLUME 88.6 fl (80-96); MEAN PLT VOLUME 9.6 fl (7.5-11.1); NEUT % 64.9 % (42.8-82.8); PLATELET COUNT 211 K/MM3 (134-434); RBC 4.75 M/mm3 (4.00-5.60); RDW 13.9 % (11.9-15.9); WHITE BLOOD COUNT 6.3 K/mm3 (4.0-10.0)
[2020-05-30] MEDS ORDERED: GABAPENTIN 100 MG CAPSULE ONE (07:01)
[2020-05-30] MEDS: GABAPENTIN 300 MG CAPSULE PO SCH ×3 (07:06→21:26)
[2020-05-30 07:10] LABS: ALBUMIN 3.8 g/dl (3.4-5.0)
[2020-05-30 07:12] LABS: CALCIUM 8.9 mg/dL (8.5-10.1)
[2020-05-30 07:13] LABS: CREATININE 1.2 mg/dL (0.55-1.3); MAGNESIUM 1.7 mg/dL (1.8-2.4)
[2020-05-30 07:15] LABS: TOT PROT 7.3 g/dl (6.4-8.2)
[2020-05-30 07:16] LABS: PHOSPHOROUS 3.3 mg/dL (2.5-4.9)
[2020-05-30 07:18] LABS: BILIRUBIN,TOTAL 0.7 mg/dL (0.2-1)
--- NOTE | 2020-05-30 08:56 | PN ---
Physical Exam: SUBJECTIVE: Patient seen and examined in the ED awaiting bed assignment. He tells me that he feels much better today and was able to eat oatmeal and a boiled egg, coffee without any vomiting/nausea or abdominal pain. He follows with his PCP and his last A1c a month ago was 6.8%. for the diabetes he is on trulicity once per week, Novolog TID 27 units and Levemir 40units. he denies any chest pain or shortness of breath. no limb weakness (has chronic neuropathy of left foot), no visual defects. OBJECTIVE: Patient is a 74 y/o male with a PMHx of HTN, HLD, DM. patient presents to the ED on 05/29/2020 with c/o dizziness, nausea, and vomiting X 3. Pt woke up drenched in sweat and got up felt dizzy like the room was spinning. He was unsteady when he stood up. He is being admitted to tele monitoring for a stroke workup. head CT negative awaiting brain mri Period Temp Pulse Resp BP Sys/Underwood Pulse Ox Last 24 Hr 97.8 F-98.4 F 71-79 18-20 145-171/77-87 96-100 GENERAL: Awake, alert, and fully oriented, in no acute distress. HEAD: Normal with no signs of trauma. EYES: Pupils equal, round and reactive to light, extraocular movements intact, sclera anicteric, conjunctiva clear. No lid lag. LUNGS: Breath sounds equal, end expiratory wheezes appreciated b/l, no crackles. No accessory muscle use. HEART: Regular rate and rhythm, normal S1 and S2 without murmur, rub or gallop. ABDOMEN: Soft, non tender, non distended LOWER EXTREMITIES: No peripheral edema. NEUROLOGICAL: Normal speech. slightly unsteady gait upon evaluation PSYCHIATRIC: Cooperative. Good eye contact. Appropriate mood and affect. SKIN: Warm, dry Laboratory Results - last 24 hr 05/29/20 05/29/20 05/29/20 15:45 15:49 15:51 WBC 7.5 RBC 4.78 Hgb 14.6 Hct 42.6 MCV 89.2 MCH 30.6 MCHC 34.4 RDW 13.7 Plt Count 197 MPV 9.2 Absolute Neuts (auto) 6.4 Neutrophils % 85.7 H D Lymphocytes % 9.5 D Monocytes % 4.3 Eosinophils % 0.1 D Basophils % 0.4 Nucleated RBC % 0 PT with INR INR PTT (Actin FS) Sodium Potassium Chloride Carbon Dioxide Anion Gap BUN Creatinine Est GFR (CKD-EPI)AfAm Est GFR (CKD-EPI)NonAf POC Glucometer 137 Random Glucose Hemoglobin A1c % Lactic Acid 1.5 Calcium Phosphorus Magnesium Total Bilirubin AST ALT Alkaline Phosphatase Creatine Kinase Creatine Kinase Index CK-MB (CK-2) Troponin I Total Protein Albumin Triglycerides Cholesterol Total LDL Cholesterol HDL Cholesterol Lipase Urine Color Urine Appearance Urine pH Ur Specific [place] Urine Protein Urine Glucose (UA) Urine Ketones Urine Blood Urine Nitrite Urine Bilirubin Urine Urobilinogen Ur Leukocyte Esterase Urine WBC (Auto) Urine RBC (Auto) Urine Casts (Auto) U Epithel Cells (Auto) Urine Bacteria (Auto) Stool Occult Blood Blood Type Antibody Screen 05/29/20 05/29/20 05/29/20 15:51 15:51 15:51 WBC RBC Hgb Hct MCV MCH MCHC RDW Plt Count MPV Absolute Neuts (auto) Neutrophils % Lymphocytes % Monocytes % Eosinophils % Basophils % Nucleated RBC % PT with INR 13.30 H INR 1.08 PTT (Actin FS) 29.2 Sodium 138 Potassium 4.3 Chloride 102 Carbon Dioxide 30 Anion Gap 6 L BUN 8.4 Creatinine 1.1 Est GFR (CKD-EPI)AfAm 77.32 Est GFR (CKD-EPI)NonAf 66.71 POC Glucometer Random Glucose 133 H Hemoglobin A1c % Lactic Acid Calcium 9.2 Phosphorus Magnesium Total Bilirubin 0.6 AST 25 ALT 35 Alkaline Phosphatase 79 Creatine Kinase 476 H Creatine Kinase Index 0.7 CK-MB (CK-2) 3.7 H Troponin I < 0.02 Total Protein 7.8 Albumin 4.0 Triglycerides Cholesterol Total LDL Cholesterol HDL Cholesterol Lipase 81 Urine Color Urine Appearance Urine pH Ur Specific [place] Urine Protein Urine Glucose (UA) Urine Ketones Urine Blood Urine Nitrite Urine Bilirubin Urine Urobilinogen Ur Leukocyte Esterase Urine WBC (Auto) Urine RBC (Auto) Urine Casts (Auto) U Epithel Cells (Auto) Urine Bacteria (Auto) Stool Occult Blood Blood Type O POSITIVE Antibody Screen Negative 05/29/20 05/29/20 05/29/20 18:02 19:30 21:14 WBC RBC Hgb Hct MCV MCH MCHC RDW Plt Count MPV Absolute Neuts (auto) Neutrophils % Lymphocytes % Monocytes % Eosinophils % Basophils % Nucleated RBC % PT with INR INR PTT (Actin FS) Sodium Potassium Chloride Carbon Dioxide Anion Gap BUN Creatinine Est GFR (CKD-EPI)AfAm Est GFR (CKD-EPI)NonAf POC Glucometer 116 Random Glucose Hemoglobin A1c % Lactic Acid Calcium Phosphorus Magnesium Total Bilirubin AST ALT Alkaline Phosphatase Creatine Kinase Creatine Kinase Index CK-MB (CK-2) Troponin I Total Protein Albumin Triglycerides Cholesterol Total LDL Cholesterol HDL Cholesterol Lipase Urine Color Yellow Urine Appearance Clear Urine pH >= 9.0 H D Ur Specific [place] 1.006 L Urine Protein Trace Urine Glucose (UA) Negative Urine Ketones Negative Urine Blood Negative Urine Nitrite Negative Urine Bilirubin Negative Urine Urobilinogen 0.2 Ur Leukocyte Esterase Negative Urine WBC (Auto) 7 Urine RBC (Auto) 2 Urine Casts (Auto) 0 U Epithel Cells (Auto) 7 Urine Bacteria (Auto) 492 Stool Occult Blood Negative Blood Type Antibody Screen 05/30/20 05/30/20 05/30/20 05:45 05:45 05:45 WBC 6.3 RBC 4.75 Hgb 14.4 Hct 42.1 MCV 88.6 MCH 30.4 MCHC 34.3 RDW 13.9 Plt Count 211 MPV 9.6 Absolute Neuts (auto) 4.1 Neutrophils % 64.9 D Lymphocytes % 25.1 D Monocytes % 9.0 D Eosinophils % 0.6 D Basophils % 0.4 Nucleated RBC % 0 PT with INR INR PTT (Actin FS) Sodium 137 Potassium 4.0 Chloride 102 Carbon Dioxide 30 Anion Gap 6 L BUN 10.0 Creatinine 1.2 Est GFR (CKD-EPI)AfAm 69.60 Est GFR (CKD-EPI)NonAf 60.05 POC Glucometer Random Glucose 114 H Hemoglobin A1c % 7.0 H Lactic Acid Calcium 8.9 Phosphorus 3.3 Magnesium 1.7 L Total Bilirubin 0.7 AST 30 ALT 33 Alkaline Phosphatase 72 Creatine Kinase Creatine Kinase Index CK-MB (CK-2) Troponin I Total Protein 7.3 Albumin 3.8 Triglycerides 185 H Cholesterol 195 Total LDL Cholesterol 110 H HDL Cholesterol 59 Lipase Urine Color Urine Appearance Urine pH Ur Specific [place] Urine Protein Urine Glucose (UA) Urine Ketones Urine Blood Urine Nitrite Urine Bilirubin Urine Urobilinogen Ur Leukocyte Esterase Urine WBC (Auto) Urine RBC (Auto) Urine Casts (Auto) U Epithel Cells (Auto) Urine Bacteria (Auto) Stool Occult Blood Blood Type Antibody Screen 05/30/20 07:52 WBC RBC Hgb Hct MCV MCH MCHC RDW Plt Count MPV Absolute Neuts (auto) Neutrophils % Lymphocytes % Monocytes % Eosinophils % Basophils % Nucleated RBC % PT with INR INR PTT (Actin FS) Sodium Potassium Chloride Carbon Dioxide Anion Gap BUN Creatinine Est GFR (CKD-EPI)AfAm Est GFR (CKD-EPI)NonAf POC Glucometer 136 Random Glucose Hemoglobin A1c % Lactic Acid Calcium Phosphorus Magnesium Total Bilirubin AST ALT Alkaline Phosphatase Creatine Kinase Creatine Kinase Index CK-MB (CK-2) Troponin I Total Protein Albumin Triglycerides Cholesterol Total LDL Cholesterol HDL Cholesterol Lipase Urine Color Urine Appearance Urine pH Ur Specific [place] Urine Protein Urine Glucose (UA) Urine Ketones Urine Blood Urine Nitrite Urine Bilirubin Urine Urobilinogen Ur Leukocyte Esterase Urine WBC (Auto) Urine RBC (Auto) Urine Casts (Auto) U Epithel Cells (Auto) Urine Bacteria (Auto) Stool Occult Blood Blood Type Antibody Screen Active Medications Generic Name Dose Route Start Last Admin Trade Name Freq PRN Reason Stop Dose Admin Albuterol/Ipratropium 1 amp 05/29/20 22:02 Duoneb - NEB 05/29/20 22:03 ONCE ONE Aspirin 81 mg 05/30/20 10:00 Asa - PO DAILY [facility] Atorvastatin Calcium 20 mg 05/30/20 22:00 Lipitor - PO HS CARL Enoxaparin Sodium 40 mg 05/29/20 22:15 05/29/20 23:59 Lovenox - SQ 40 mg DAILY [facility]L Administration Gabapentin 300 mg 05/30/20 06:00 05/30/20 07:06 Neurontin - PO 300 mg TID CARL Administration Insulin Aspart 1 vial 05/30/20 07:00 Novolog Vial Sliding Scale - SQ ACHS [facility] Protocol Insulin Detemir 20 units 05/30/20 22:00 Levemir Vial SQ HS CARL Lisinopril 5 mg 05/30/20 10:00 Prinivil PO DAILY [facility] Meclizine HCl 12.5 mg 05/29/20 22:28 Antivert - PO Q8H PRN [facility]IGO Nitroglycerin 0.4 mg 05/29/20 22:47 Nitrostat - SL [id number] PRN FOR CHEST PAIN Nortriptyline HCl 10 mg 05/30/20 22:00 Pamelor - PO HS CARL Pantoprazole Sodium 40 mg 05/30/20 10:00 Protonix - PO DAILY [facility] Tamsulosin HCl 0.4 mg 05/30/20 08:30 Flomax - PO DAILY@0830 [facility] Tiotropium [place] 2 puff 05/30/20 10:00 Spiriva Respimat IH DAILY [facility] ASSESSMENT/PLAN: Problem List - Problems (1) Abdominal pain Assessment/Plan: no further abdominal pain, nausea or vomiting. CT abdomen negative for any acute pathology on protonix negative FOBT. 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 unable to obtain records due to it being the weekend if symptoms persist, will consult cardiology (Dr. 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 - New Patient This patient is new to me today: No - Critical Care Critical Care patient: No - Discharge Referral Referred to [facility] Med [facility] No - Medication Review Med list reviewed for High Risk Meds patients 65 and older: Yes
[2020-05-30] MEDS ORDERED: TAMSULOSIN HCL 0.4 MG CAP ONE (09:52)
[2020-05-30] MEDS ORDERED: PANTOPRAZOLE 20 MG TABLET PO ONE (09:52)
[2020-05-30] MEDS ORDERED: ASPIRIN 81 MG CHEWABLE TABLETS ONE (09:52)
[2020-05-30] MEDS ORDERED: LISINOPRIL 5 MG TABLET ONE (09:52)
[2020-05-30] MEDS: PANTOPRAZOLE 40 MG TABLET PO SCH (09:54)
[2020-05-30] MEDS: TAMSULOSIN HCL 0.4 MG CAP PO SCH (09:54)
[2020-05-30] MEDS: LISINOPRIL 5 MG TABLET PO SCH (09:54)
[2020-05-30] MEDS: TIOTROPIUM BROMIDE 2.5 MCG (SPIRIVA) RESPIMAT INHALER IH SCH (09:54)
[2020-05-30] MEDS: ASPIRIN 81 MG CHEWABLE TABLETS PO SCH (09:54)
[2020-05-30] MEDS: ENOXAPARIN NA (PORCINE) 40 MG/0.4 ML DISP.SYRIN SQ SCH (10:18)
[2020-05-30] MEDS ORDERED: ENOXAPARIN NA (PORCINE) 40 MG/0.4 ML DISP.SYRIN SQ ONE (10:19)
[2020-05-30] MEDS: INSULIN SLIDING SCALE (NOVOLOG) 1 VIAL SQ SCH ×3 (15:22→21:44)
--- NOTE | 2020-05-30 18:39 | EKG ---
Test Reason : Blood Pressure : / mmHG Vent. Rate : 071 BPM Atrial Rate : 071 BPM P-R Int : 184 ms QRS Dur : 092 ms QT Int : 400 ms P-R-T Axes : 059 -22 030 degrees QTc Int : 434 ms NORMAL SINUS RHYTHM NORMAL ECG WHEN COMPARED WITH ECG OF 14-FEB-2020 11:20, NO SIGNIFICANT CHANGE WAS FOUND Confirmed by MD GOODRICH PENG ([id number]) on 05/30/2020 6:39:24 PM Referred By: Confirmed By:TAYLOR GOODRICH MD
[2020-05-30 19:03] VITALS: BMI 28.0
[2020-05-30] MEDS ORDERED: FLU VACCINE (FLULAVAL) PF 60 MCG/0.5 ML SYRINGE 2020-2021 IM ONE (19:03)
--- NOTE | 2020-05-30 20:02 | CON.NEURO ---
Consult - Past Medical History Cardio/Vascular: Yes: CAD, HTN Endocrine: Yes: Diabetes Mellitus - Alcohol/Substance Use Hx Alcohol Use: No - Smoking History Smoking history: Never smoked Have you smoked in the past 12 months: No Aproximately how many cigarettes per day: 20 If you are a former smoker, when did you quit?: 11/2016 - Social History ADL: Independent History of Recent Travel: No Home Medications - Allergies Allergies/Adverse Reactions: Allergies Allergy/AdvReac Type Severity Reaction Status Date / Time Penicillins Allergy Verified 05/29/20 15:30 - Home Medications Home Medications: Ambulatory Orders Simvastatin 40 mg PO HS 06/17/17 Aspirin [ASA -] 81 mg PO DAILY 02/13/20 Dulaglutide [Trulicity] 1.5 dose IM WEEKLY 02/13/20 Gabapentin 300 mg PO TID 02/13/20 Insulin (Levemir) [Levemir Vial] 40 units SQ HS 02/13/20 Insulin Sliding Scale [Novolog Vial Sliding Scale -] 27 units SQ TIDAC 02/13/20 Meclizine HCl [Antivert -] 12.5 mg PO Q8H PRN 02/13/20 Nortriptyline HCl [Pamelor -] 10 mg PO HS 02/13/20 Pantoprazole Sodium 40 mg PO DAILY 02/13/20 Ipratropium 0.02% Nebulizer [Atrovent] 2 neb IH TID 05/29/20 Lisinopril 5 mg PO DAILY 05/29/20 Nitroglycerin 0.4 mg SL [id number] PRN 05/29/20 Tamsulosin HCl [Flomax] 0.4 mg PO DAILY 05/29/20 Umeclidinium [place] [Incruse Ellipta] 1 puff IH DAILY 05/29/20 Physical Exam-Neuro Vital Signs: Vital Signs Temperature 98.0 F 05/30/20 18:51 Pulse Rate 92 H 05/30/20 18:51 Respiratory Rate 19 05/30/20 18:51 Blood Pressure 159/98 05/30/20 18:51 O2 Sat by Pulse Oximetry (%) 95 05/30/20 18:51 Labs: CBC, BMP 05/30/20 05:45 05/30/20 05:45 INR, PTT INR 1.08 (0.83-1.09) 05/29/20 15:51 Assessment/Plan cc Dizziness , nasuea and vomiting for three days HPI 74 year old male history of DM, HTN, HLD, came with room was spinning and feeling unsteady. His ct head is normal. Pateint is walking around at nursing station and he feels back to normal self. Patient denies having low sugar, He denies any other focal neurological symptoms( ER course was notable for: (1) normal CXR, CT head, and CT abdomen pelvis. (2)normal wbc, orthostatic vital signs s/p 500 ns bolus negative (3)ekg nsr, ck and ckmb slightly elevated Recent Travel: denies PAST SURGICAL HISTORY: 2007 cervical fusion (c6-c7), 2016- face plate placed s/p fall and since been removed but screw left in that per patient is MRI compatible Social History: Smokin/2 ppd X 30 yrs quit in 2016 Alcohol:none Drugs: none Allergies Penicillins Allergy (Verified 05/29/20 15:30) HOME MEDICATIONS: Home Medications Medication Instructions Recorded Amlodipine Besylate [Norvasc -] 2.5 mg PO DAILY 06/17/17 Simvastatin 40 mg PO HS 06/17/17 Aspirin [ASA -] 81 mg PO DAILY 02/13/20 Dulaglutide [Trulicity] 1.5 dose IM WEEKLY 02/13/20 Gabapentin 300 mg PO TID 02/13/20 Insulin (Levemir) [Levemir Vial] 40 units SQ HS 02/13/20 Insulin Sliding Scale [Novolog 27 units SQ TIDAC 02/13/20 Vial Sliding Scale -] Meclizine HCl [Antivert -] 12.5 mg PO Q8H PRN 02/13/20 Nortriptyline HCl [Pamelor -] 10 mg PO HS 02/13/20 Pantoprazole Sodium 40 mg PO DAILY 02/13/20 ROS,FH,SH reviewed in chart NEUROLOGICAL EXAMINATION Alert oriented x 3, neck is supple afrebrile vss eomi, pupils reactive no nystagmus no face asymmetry motor 5/5 all ext sensation is normal ct head is wnl mri ofbrain is pending Assessment/Plan Most likley BPPV and neuro exam is noraml, symptoms resolved, and mri of pending Plan: continue statin and aspirin - would add carotid ultrasound if not done recently - follow up mri - pt - continue supportive care adn meclizine prn Thanking you so much Osbaldo Graff MD
[2020-05-30] MEDS ORDERED: PT OWN MED DRAWER 7, Y5N ONE (21:08)
[2020-05-30] MEDS: ATORVASTATIN CA 20 MG TABLET (FP) PO SCH (21:26)
[2020-05-30] MEDS: INSULIN (LEVEMIR) 100 UNITS/ML UNITS SQ SCH (21:44)
[2020-05-30] MEDS ORDERED: PATIENT'S OWN MEDICATION (NON-FORMULARY) (Simvastatin [Simvastatin] 40 MG) PO SCH (22:00)
[2020-05-30] MEDS: NORTRIPTYLINE HCL 10 MG CAPSULE PO SCH (22:50)
[2020-05-31] MEDS: GABAPENTIN 300 MG CAPSULE PO SCH ×3 (06:03→21:09)
[2020-05-31] MEDS: INSULIN SLIDING SCALE (NOVOLOG) 1 VIAL SQ SCH ×4 (06:24→21:10)
[2020-05-31] MEDS: TAMSULOSIN HCL 0.4 MG CAP PO SCH (08:39)
[2020-05-31] MEDS: ASPIRIN 81 MG CHEWABLE TABLETS PO SCH (09:09)
[2020-05-31] MEDS: LISINOPRIL 5 MG TABLET PO SCH (09:09)
[2020-05-31] MEDS: ENOXAPARIN NA (PORCINE) 40 MG/0.4 ML DISP.SYRIN SQ SCH (09:09)
[2020-05-31] MEDS: PANTOPRAZOLE 40 MG TABLET PO SCH (09:09)
[2020-05-31] MEDS ORDERED: PT OWN MED DRAWER 7, Y5N ONE (12:42)
[2020-05-31] MEDS: TIOTROPIUM BROMIDE 2.5 MCG (SPIRIVA) RESPIMAT INHALER IH SCH (12:45)
--- NOTE | 2020-05-31 15:52 | PN ---
Physical Exam: SUBJECTIVE:Patient seen and examined. denies any further dizziness. He tells me that he feels much better today and no further dizziness, no further vomiting or abdominal discomfort. he denies any chest pain or shortness of breath. no limb weakness (has chronic neuropathy of left foot), no visual defects. OBJECTIVE: Patient is a 74 y/o male with a PMHx of HTN, HLD, DM. patient presents to the ED on 05/29/2020 with c/o dizziness, nausea, and vomiting X 3. Pt woke up drenched in sweat and got up felt dizzy like the room was spinning. He was unsteady when he stood up. He is being admitted to tele monitoring for a stroke workup. head CT negative awaiting brain mriVital Signs Period Temp Pulse Resp BP Sys/[place]wood Pulse Ox Last 24 Hr 97.9 F-99.1 F 64-92 18-20 137-159/70-98 93-98 GENERAL: Awake, alert, and fully oriented, in no acute distress. HEAD: Normal with no signs of trauma. EYES: Pupils equal, round and reactive to light, extraocular movements intact, sclera anicteric, conjunctiva clear. No lid lag. LUNGS: Breath sounds equal, end expiratory wheezes appreciated b/l, no crackles. No accessory muscle use. HEART: Regular rate and rhythm, normal S1 and S2 without murmur, rub or gallop. ABDOMEN: Soft, non tender, non distended LOWER EXTREMITIES: No peripheral edema. NEUROLOGICAL: Normal speech. slightly unsteady gait upon evaluation PSYCHIATRIC: Cooperative. Good eye contact. Appropriate mood and affect. SKIN: Warm, dry Laboratory Results - last 24 hr 05/30/20 05/30/20 05/30/20 06:00 16:47 21:34 POC Glucometer 149 170 COVID-19 ([facility]) Not detected 05/31/20 05/31/20 06:22 11:25 POC Glucometer 136 176 COVID-19 ([facility]) Active Medications Generic Name Dose Route Start Last Admin Trade Name Freq PRN Reason Stop Dose Admin Aspirin 81 mg 05/30/20 10:00 05/31/20 09:09 Asa - PO 81 mg DAILY [facility] Administration Atorvastatin Calcium 20 mg 05/30/20 22:00 05/30/20 21:26 Lipitor - PO 20 mg HS CARL Administration Enoxaparin Sodium 40 mg 10/16/20 22:15 05/31/20 09:09 Lovenox - SQ 40 mg DAILY [facility] Administration Gabapentin 300 mg 05/30/20 06:00 05/31/20 13:57 Neurontin - PO 300 mg TID [facility] Administration Insulin Aspart 1 vial 05/30/20 16:30 05/31/20 11:36 Novolog Vial Sliding Scale - SQ 2 units ACHS [facility] Administration Protocol Insulin Detemir 20 units 05/30/20 22:00 05/30/20 21:44 Levemir Vial SQ 20 units HS [facility] Administration Lisinopril 5 mg 05/30/20 10:00 05/31/20 09:09 Prinivil PO 5 mg DAILY [facility] Administration Meclizine HCl 12.5 mg 05/29/20 22:28 Antivert - PO Q8H PRN VERTIGO Nitroglycerin 0.4 mg 05/29/20 22:47 Nitrostat - SL [id number] PRN FOR CHEST PAIN Nortriptyline HCl 10 mg 05/30/20 22:00 05/30/20 22:50 Pamelor - PO 10 mg HS CARL Administration Pantoprazole Sodium 40 mg 05/30/20 10:00 05/31/20 09:09 Protonix - PO 40 mg DAILY [facility] Administration Tamsulosin HCl 0.4 mg 05/30/20 08:30 05/31/20 08:39 Flomax - PO 0.4 mg DAILY@0830 [facility] Administration Tiotropium [place] 2 puff 05/30/20 10:00 05/31/20 12:45 Spiriva Respimat IH 2 puff DAILY [facility] Administration ASSESSMENT/PLAN: Problem List - Problems (1) Abdominal pain Assessment/Plan: no further abdominal pain, nausea or vomiting. CT abdomen negative for any acute pathology on protonix negative FOBT. 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 unable to obtain records due to it being the weekend if symptoms persist, will consult cardiology (Dr. 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 - New Patient This patient is new to me today: No - Critical Care Critical Care patient: No - Discharge Referral Referred to [facility] Med P.C[facility] No - Medication Review Med list reviewed for High Risk Meds patients 65 and older: Yes
[2020-05-31] MEDS ORDERED: ACETAMINOPHEN 325 MG TABLET (FP) PO PRN (16:46)
[2020-05-31] MEDS: INSULIN (LEVEMIR) 100 UNITS/ML UNITS SQ SCH (21:09)
[2020-05-31] MEDS: ATORVASTATIN CA 20 MG TABLET (FP) PO SCH (21:09)
[2020-05-31] MEDS: NORTRIPTYLINE HCL 10 MG CAPSULE PO SCH (21:29)
[2020-06-01] MEDS ORDERED: ARTIFICIAL TEARS (POLYVINYL ALCOHOL) OPTH DROPS OU PRN (01:59)
[2020-06-01] MEDS: GABAPENTIN 300 MG CAPSULE PO SCH (05:18)
[2020-06-01] MEDS: INSULIN SLIDING SCALE (NOVOLOG) 1 VIAL SQ SCH (06:07)
[2020-06-01 08:41] LABS: BASO % 0.5 % (0-2.0); EOS % 1.6 % (0-4.5); HEMATOCRIT 47.2 % (35.4-49); HEMOGLOBIN 15.9 GM/dL (11.7-16.9); LYMPH % 29.7 % (8-40); MCH 30.2 pg (25.7-33.7); MCHC 33.8 g/dl (32.0-35.9); MEAN CELL VOLUME 89.5 fl (80-96); MEAN PLT VOLUME 9.3 fl (7.5-11.1); MONO % 9.3 % (3.8-10.2); NEUT % 58.9 % (42.8-82.8); PLATELET COUNT 228 K/MM3 (134-434); RBC 5.27 M/mm3 (4.00-5.60); RDW 13.9 % (11.9-15.9); WHITE BLOOD COUNT 5.7 K/mm3 (4.0-10.0)
[2020-06-01 09:00] LABS: POTASSIUM 4.1 mmol/L (3.5-5.1)
[2020-06-01 09:02] LABS: ALBUMIN 3.9 g/dl (3.4-5.0); CALCIUM 9.2 mg/dL (8.5-10.1)
[2020-06-01 09:03] LABS: BLOOD UREA NITROGEN 18.3 mg/dL (7-18)
[2020-06-01] MEDS ORDERED: LISINOPRIL 5 MG TABLET PO SCH ×2 (09:04→09:10)
[2020-06-01 09:06] LABS: CREATININE 1.5 mg/dL (0.55-1.3)
[2020-06-01 09:07] LABS: BILIRUBIN,TOTAL 0.6 mg/dL (0.2-1); TOT PROT 8.1 g/dl (6.4-8.2)
[2020-06-01] MEDS: TAMSULOSIN HCL 0.4 MG CAP PO SCH (09:13)
[2020-06-01] MEDS: PANTOPRAZOLE 40 MG TABLET PO SCH (09:13)
[2020-06-01] MEDS: ENOXAPARIN NA (PORCINE) 40 MG/0.4 ML DISP.SYRIN SQ SCH (09:13)
[2020-06-01] MEDS: ASPIRIN 81 MG CHEWABLE TABLETS PO SCH (09:13)
[2020-06-01] MEDS: TIOTROPIUM BROMIDE 2.5 MCG (SPIRIVA) RESPIMAT INHALER IH SCH (09:13)
[2020-06-01] MEDS ORDERED: FLU VACCINE (FLULAVAL) PF 60 MCG/0.5 ML SYRINGE 2020-2021 IM ONE (09:26)
--- NOTE | 2020-06-01 09:35 | DS ---
Physical Exam: SUBJECTIVE: Patient seen and examined at the bedside. sitting in in chair, in no acute distress denies chest pain denies shortness of breath had a recent echo per patient with Dr. Jolley, was told it was normal. He as a follow up appointment with Dr. Jolley on Monday Patient is a 74 y/o male with a PMHx of HTN, HLD, DM. patient presents to the ED on 05/29/2020 with c/o dizziness, nausea, and vomiting X 3. Pt woke up drenched in sweat and got up felt dizzy like the room was spinning. He was unsteady when he stood up. He is being admitted to tele monitoring for a stroke workup. ----- imaging: head CT negative brain mri negative, but with evidence of long standing hypertension has mild [place], will need close followup. patient states he has a PCP and will follow up SEE PROBLEM LIST BELOW: Period Temp Pulse Resp BP Sys/[place] Pulse Ox Last 24 Hr 97.9 F-99.1 F 64-92 18-20 137-159/70-98 93-98 GENERAL: Awake, alert, and fully oriented, in no acute distress. HEAD: Normal with no signs of trauma. EYES: Pupils equal, round and reactive to light, extraocular movements intact, sclera anicteric, conjunctiva clear. No lid lag. LUNGS: Breath sounds equal, no crackles. No accessory muscle use. HEART: Regular rate and rhythm, normal S1 and S2 without murmur, rub or gallop. ABDOMEN: Soft, non tender, non distended LOWER EXTREMITIES: No peripheral edema. NEUROLOGICAL: Normal speech. steady gait PSYCHIATRIC: Cooperative. Good eye contact. Appropriate mood and affect. SKIN: Warm, dry Laboratory Results - last 24 hr 05/29/20 05/30/20 05/31/20 15:51 06:00 11:25 WBC RBC Hgb Hct MCV MCH MCHC RDW Plt Count MPV Absolute Neuts (auto) Neutrophils % Lymphocytes % Monocytes % Eosinophils % Basophils % Nucleated RBC % Sodium 138 Potassium 4.3 Chloride 102 Carbon Dioxide 30 Anion Gap 6 L BUN 8.4 Creatinine 1.1 Est GFR (CKD-EPI)AfAm 77.32 Est GFR (CKD-EPI)NonAf 66.71 POC Glucometer 176 Random Glucose 133 H Calcium 9.2 Magnesium Total Bilirubin 0.6 AST 25 ALT 35 Alkaline Phosphatase 79 Creatine Kinase 476 H Creatine Kinase Index 0.7 CK-MB (CK-2) 3.7 H Troponin I < 0.02 Total Protein 7.8 Albumin 4.0 Lipase 81 COVID-19 ([facility]) Not detected 05/31/20 05/31/20 06/01/20 16:40 20:47 05:32 WBC RBC Hgb Hct MCV MCH MCHC RDW Plt Count MPV Absolute Neuts (auto) Neutrophils % Lymphocytes % Monocytes % Eosinophils % Basophils % Nucleated RBC % Sodium Potassium Chloride Carbon Dioxide Anion Gap BUN Creatinine Est GFR (CKD-EPI)AfAm Est GFR (CKD-EPI)NonAf POC Glucometer 202 173 181 Random Glucose Calcium Magnesium Total Bilirubin AST ALT Alkaline Phosphatase Creatine Kinase Creatine Kinase Index CK-MB (CK-2) Troponin I Total Protein Albumin Lipase COVID-19 ([facility]) 06/01/20 06/01/20 06:00 08:23 WBC 5.7 RBC 5.27 Hgb 15.9 Hct 47.2 MCV 89.5 MCH 30.2 MCHC 33.8 RDW 13.9 Plt Count 228 MPV 9.3 Absolute Neuts (auto) 3.4 Neutrophils % 58.9 Lymphocytes % 29.7 Monocytes % 9.3 Eosinophils % 1.6 D Basophils % 0.5 Nucleated RBC % 0 Sodium 137 Potassium 4.1 Chloride 101 Carbon Dioxide 29 Anion Gap 7 L BUN 18.3 H Creatinine 1.5 H Est GFR (CKD-EPI)AfAm 53.14 Est GFR (CKD-EPI)NonAf 45.85 POC Glucometer Random Glucose 221 H Calcium 9.2 Magnesium 2.0 Total Bilirubin 0.6 AST 46 H ALT 44 Alkaline Phosphatase 89 Creatine Kinase Creatine Kinase Index CK-MB (CK-2) Troponin I Total Protein 8.1 Albumin 3.9 Lipase COVID-19 ([facility]) HOSPITAL COURSE: Date of Admission:05/29/20 Date of Discharge: 06/01/20 Minutes to complete discharge: 60 Discharge Summary Problems reviewed: Yes Reason For Visit: DIZZINESS Current Active Problems Abdominal pain (Acute) GIB (gastrointestinal bleeding) (Acute) Vomiting (Acute) Dizziness (Chronic) Condition: Improved - Instructions Diet, Activity, Other Instructions: DISCHARGE YOUR VISIT You came to the hospital because you were having dizziness at home. We did an MRI of your brain and it shows that you have had long standing hypertension. No other findings were concerning. It is important that you continue to control your blood pressure. 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 MEDICATION CONTINUE all your other home medications as outlined in this discharge paper work STOP LEVEMIR 40 UNTS, START LEVEMIR 20 UNITS AT BED TIME CHECK YOUR BLOOD SUGARS 15 MINUTES BEFORE MEALS AND RECORD THE NUMBER IN A NOTEBOOK. YOU MAY NEED FURTHER ADJUSTMENT OF YOUR MEDICATIONS GOING FORWARD. DIET Continue a diabetic diet. ADDITIONAL INFORMATION Please call 911 or come directly to the emergency department if you experience unusual headache, vision change, shortness of breath, chest pain, numbness, tingling, loss of alertness/awareness, loss of function, unusual bleeding or any alarming symptoms. Thank you for allowing us to care for you. Referrals: Jake Bhakta MD [Primary Care Provider] - Disposition: HOME - Home Medications Comprehensive Discharge Medication List: Ambulatory Orders Simvastatin 40 mg PO HS 06/17/17 Aspirin [ASA -] 81 mg PO DAILY 02/13/20 Dulaglutide [Trulicity] 1.5 dose IM WEEKLY 02/13/20 Gabapentin 300 mg PO TID 02/13/20 Insulin Sliding Scale [Novolog Vial Sliding Scale -] 27 units SQ TIDAC 02/13/20 Meclizine HCl [Antivert -] 12.5 mg PO Q8H PRN 02/13/20 Nortriptyline HCl [Pamelor -] 10 mg PO HS 02/13/20 Pantoprazole Sodium 40 mg PO DAILY 02/13/20 Ipratropium 0.02% Nebulizer [Atrovent 0.02% Nebulizer -] 2 neb IH TID 05/29/20 Lisinopril 5 mg PO DAILY 05/29/20 Nitroglycerin 0.4 mg SL [id number] PRN 05/29/20 Tamsulosin HCl [Flomax] 0.4 mg PO DAILY 05/29/20 Umeclidinium [place] [Incruse Ellipta] 1 puff IH DAILY 05/29/20 Insulin (Levemir) [Levemir Vial] 20 units SQ HS #1 vial 06/01/20 Problem List - Problems (1) Abdominal pain Assessment/Plan: no further abdominal pain, nausea or vomiting. CT abdomen negative for any acute pathology on protonix negative FOBT. he is on iron therapy at home hmg/hct stable tolerating diet Code(s): R10.9 - UNSPECIFIED ABDOMINAL PAIN (2) Vomiting Assessment/Plan: resolved Code(s): R11.10 - VOMITING, UNSPECIFIED (3) Dizziness Assessment/Plan: no acute finding on head CT, brain MRI pending PT ordered fall risk negative orthostatics patient had recent echo with his pulp grinder and states it was normal. brain mri negative for acute process for outpateint follow up Code(s): R42 - DIZZINESS AND GIDDINESS (4) COPD (chronic obstructive pulmonary disease) Assessment/Plan: tolerating room air, no in acute exacerbation Code(s): J44.9 - CHRONIC OBSTRUCTIVE PULMONARY DISEASE, UNSPECIFIED (5) HTN (hypertension) Assessment/Plan: continue home meds, stable BP Code(s): I10 - ESSENTIAL (PRIMARY) HYPERTENSION (6) Hyperglycemia due to type 2 diabetes mellitus Assessment/Plan: levemir 20, and sliding scale and monitor bgms. patient was on levemir 40units at home he is aware that it has been reduced here. he is also on a short acting and on weekly trulicity A1c 7.0 Code(s): E11.65 - TYPE 2 DIABETES MELLITUS WITH HYPERGLYCEMIA Qualifiers: Diabetes mellitus [employer] insulin use: unspecified [employer] insulin use status Qualified Code(s): E11.65 - Type 2 diabetes mellitus with hyperglycemia This patient is new to me today: No Emergency Visit: Yes ED Registration Date: 05/29/20 Care time: The patient presented to the Emergency Department on the above date and was hospitalized for further evaluation of their emergent condition. Critical Care patient: No - Discharge Referral Referred to [facility] Med P.C.: No
[2020-06-01 10:07] VITALS: BP 149/85; PULSE 89; TEMP 98
--- NOTE | 2020-06-01 16:11 | EKG ---
Test Reason : Blood Pressure : / mmHG Vent. Rate : 079 BPM Atrial Rate : 079 BPM P-R Int : 150 ms QRS Dur : 098 ms QT Int : 356 ms P-R-T Axes : 094 -27 084 degrees QTc Int : 408 ms NORMAL SINUS RHYTHM NORMAL ECG WHEN COMPARED WITH ECG OF 29-MAY-2020 17:17, NO SIGNIFICANT CHANGE WAS FOUND Confirmed by GAYE BALLARD MD ([id number]) on 06/01/2020 4:11:14 PM Referred By: Confirmed By:GAYE BALLARD MD
--- NOTE | 2020-06-01 16:19 | PN ---
Progress Note (short form) - Note Progress Note: c Dizziness , [place] and vomiting for three days HPI 74 year old male history of DM, HTN, HLD, came with room was spinning and feeling unsteady. His ct head is normal. Pateint is walking around at nursing station and he feels back to normal self. Patient denies having low sugar, He denies any other focal neurological symptoms( no new complain, carotid ultrasound is normal NEUROLOGICAL EXAMINATION Alert oriented x 3, neck is supple afrebrile vss eomi, pupils reactive no nystagmus no face asymmetry motor 5/5 all ext sensation is normal ct head is wnl mri ofbrain wnl carotid ultrasound is normal Assessment/Plan Most likley BPPV and neuro exam is noraml, symptoms resolved, and mri of pending Plan: continue statin and aspirin - continue supportive care adn meclizine avani Thanking you so much Osbaldo Graff MD
== END 2020-06-01 11:15 | disposition home or self-care (01) | DRG 149 ==
LOC: JER 14:14 → JERBED 20:33 → J4W 05-30 19:40
PROVIDERS: ADMIT Hospitalist; ATTEND Nurse Practitioner Family
DX: H81.10 Benign paroxysmal vertigo, unspecified ear (principal); I10 Essential (primary) hypertension; E78.5 Hyperlipidemia, unspecified; E11.65 Type 2 diabetes mellitus with hyperglycemia; J44.9 Chronic obstructive pulmonary disease, unspecified
CPT/HCPCS: 36415; 70450-TC; 70551-TC; 71045-TC-FY; 74177-TC; 80053; 80061; 81003; 82272; 82550; 82553; 82962; 83036; 83605; 83690; 83721; 83735; 84100; 84484; 85025; 85610; 85730; 86850; 86900; 86901; 87077; 87086; 93005; 93010; 93880-TC; 94660; 99285-25; C9803; Q2036; Q9967; U0003

== ENCOUNTER 2022-06-28 11:34 | Emergency (ER) | payer OTHER ==
[2022-06-28 12:06] VITALS: BP 136/70; PULSE 71; RESP 16; TEMP 98.1; BMI 28.3
[2022-06-28] MEDS ORDERED: FLUCONAZOLE 150 MG TABLET PO ONE ×2 (13:52→14:12)
== END 2022-06-28 14:59 | disposition home or self-care (01) ==
LOC: JERFT 11:34
DX: K62.89 Other specified diseases of anus and rectum (principal); K60.2 Anal fissure, unspecified
CPT/HCPCS: 99283-25

== ENCOUNTER 2023-03-30 14:45 | Observation (INO) | payer OTHER ==
[2023-03-30 15:52] VITALS: BMI 30.2
[2023-03-30] MEDS ORDERED: ASPIRIN 81 MG CHEWABLE TABLETS PO ONE (16:08)
[2023-03-30 16:19] LABS: BASO % 0.4 % (0-2.0); EOS % 0.6 % (0-4.5); HEMATOCRIT 41.1 % (35.4-49); HEMOGLOBIN 13.1 GM/dL (11.7-16.9); LYMPH % 19.9 % (8-40); MCH 27.7 pg (25.7-33.7); MCHC 31.9 g/dl (32.0-35.9); MONO % 9.6 % (3.8-10.2); NEUT % 69.5 % (42.8-82.8); RBC 4.72 M/mm3 (4.00-5.60); RDW 14.7 % (11.9-15.9)
[2023-03-30] MEDS ORDERED: ASPIRIN 81 MG CHEWABLE TABLETS ONE (16:24)
[2023-03-30 16:32] LABS: INR 1.08 (0.83-1.09); PROTHROMBIN TIME (PATIENT) 12.5 SEC (9.7-13.0)
[2023-03-30 16:35] LABS: ACTIVATED PTT 17.6 SECONDS (25.2-36.5); POTASSIUM 4.3 mmol/L (3.5-5.1)
[2023-03-30 16:37] LABS: ALBUMIN 3.6 g/dl (3.4-5.0); BLOOD UREA NITROGEN 15.3 mg/dL (7-18)
[2023-03-30 16:40] LABS: CREATININE 1.8 mg/dL (0.55-1.3)
[2023-03-30 16:42] LABS: BILIRUBIN,TOTAL 0.2 mg/dL (0.2-1); TOT PROT 7.5 g/dl (6.4-8.2)
[2023-03-30 16:58] LABS: PLATELET ESTIMATE ADEQUATE
[2023-03-30] MEDS ORDERED: SODIUM CHLORIDE 0.9% 1000 ML INFUS.BAG IV ONE (17:05)
[2023-03-30] MEDS ORDERED: IPRATROPIUM BR 0.02% 0.5 MG/2.5 ML VIAL.NEB. NEB PRN (17:56)
[2023-03-30] MEDS ORDERED: INSULIN SLIDING SCALE (NOVOLOG) 1 VIAL SQ SCH (22:00)
[2023-03-30] MEDS ORDERED: ROSUVASTATIN CA 20 MG TABLET PO SCH (22:00)
[2023-03-30] MEDS: INSULIN (LEVEMIR) 100 UNITS/ML UNITS SQ SCH (23:09)
[2023-03-30] MEDS ORDERED: HEPARIN NA (PORCINE) 5,000 UNITS/ML 1ML VIAL ONE (23:10)
[2023-03-30] MEDS ORDERED: ROSUVASTATIN CA 20 MG TABLET ONE (23:10)
[2023-03-30] MEDS: HEPARIN NA (PORCINE) 5,000 UNITS/ML 1ML VIAL SQ SCH (23:14)
[2023-03-31 06:46] LABS: BASO % 0.4 % (0-2.0); EOS % 1.3 % (0-4.5); HEMATOCRIT 39.3 % (35.4-49); HEMOGLOBIN 12.6 GM/dL (11.7-16.9); LYMPH % 24.4 % (8-40); MCH 27.6 pg (25.7-33.7); MEAN CELL VOLUME 86.3 fl (80-96); MEAN PLT VOLUME 9.3 fl (7.5-11.1); MONO % 12.3 % (3.8-10.2); NEUT % 61.6 % (42.8-82.8); PLATELET COUNT 219 10^3/uL (134-434); RBC 4.56 M/mm3 (4.00-5.60); RDW 14.5 % (11.9-15.9); WHITE BLOOD COUNT 4.4 K/mm3 (4.0-10.0)
[2023-03-31 07:04] LABS: POTASSIUM 4.3 mmol/L (3.5-5.1)
[2023-03-31 07:07] LABS: ALBUMIN 3.2 g/dl (3.4-5.0); CALCIUM 8.7 mg/dL (8.5-10.1); MAGNESIUM 1.8 mg/dL (1.8-2.4)
[2023-03-31 07:08] LABS: BLOOD UREA NITROGEN 14.9 mg/dL (7-18)
[2023-03-31 07:10] LABS: PHOSPHOROUS 3.2 mg/dL (2.5-4.9)
[2023-03-31 07:11] LABS: CREATININE 1.2 mg/dL (0.55-1.3)
[2023-03-31 07:12] LABS: BILIRUBIN,TOTAL 0.4 mg/dL (0.2-1); TOT PROT 6.9 g/dl (6.4-8.2)
[2023-03-31] MEDS: INSULIN (LEVEMIR) 100 UNITS/ML UNITS SQ SCH (09:44)
[2023-03-31] MEDS: HEPARIN NA (PORCINE) 5,000 UNITS/ML 1ML VIAL SQ SCH (09:44)
[2023-03-31] MEDS ORDERED: LISINOPRIL 10 MG TABLET PO SCH (10:00)
[2023-03-31] MEDS ORDERED: ASPIRIN 81 MG CHEWABLE TABLETS PO SCH (10:00)
[2023-03-31] MEDS ORDERED: LOSARTAN POTASSIUM 25 MG TABLET PO SCH (10:30)
[2023-03-31] MEDS ORDERED: LOSARTAN POTASSIUM 25 MG TABLET ONE (10:47)
[2023-03-31] MEDS ORDERED: INSULIN SLIDING SCALE (NOVOLOG) 1 VIAL SQ SCH (11:00)
[2023-03-31 13:15] VITALS: BP 160/86; PULSE 67; RESP 20; TEMP 97.5
== END 2023-03-31 13:24 | disposition home or self-care (01) ==
LOC: JER 14:45 → JERBED 16:55
PROVIDERS: ADMIT Internal Medicine; ATTEND Internal Medicine
PROC: 3E023GC Introduction of Other Therapeutic Substance into Muscle, Percutaneous Approach (ICD-10-PCS; principal; 2023-03-30)
PROC: 3E013VG Introduction of Insulin into Subcutaneous Tissue, Percutaneous Approach (ICD-10-PCS; 2023-03-30)
PROC: 3E0337Z Introduction of Electrolytic and Water Balance Substance into Peripheral Vein, Percutaneous Approach (ICD-10-PCS; 2023-03-30)
DX: R07.9 Chest pain, unspecified (principal); K21.9 Gastro-esophageal reflux disease without esophagitis; I25.10 Atherosclerotic heart disease of native coronary artery without angina pectoris; E78.5 Hyperlipidemia, unspecified; E11.9 Type 2 diabetes mellitus without complications; Z79.4 Long term (current) use of insulin; R10.9 Unspecified abdominal pain; N17.9 Acute kidney failure, unspecified; J44.9 Chronic obstructive pulmonary disease, unspecified; Z29.8 Encounter for other specified prophylactic measures; I25.83 Coronary atherosclerosis due to lipid rich plaque; Z88.0 Allergy status to penicillin; I10 Essential (primary) hypertension; F17.200 Nicotine dependence, unspecified, uncomplicated
CPT/HCPCS: 36415; 71045-TC-FY; 76705-TC; 80053; 80061; 82962; 83735; 84100; 84443; 84484; 85025; 85610; 85730; 86850; 86900; 86901; 93005; 93010; 96372; 99285-25; G0378; J1644

== ENCOUNTER 2023-07-27 13:50 | Observation (INO) | payer OTHER ==
[2023-07-27 14:08] VITALS: BMI 27.1
[2023-07-27] MEDS ORDERED: SODIUM CHLORIDE 0.9% 500 ML INFUS.BAG IV ONE ×2 (16:33→16:50)
[2023-07-27] MEDS ORDERED: ACETAMINOPHEN 325 MG TABLET (FP) PO ONE (16:33)
[2023-07-27] MEDS ORDERED: ONDANSETRON 4 MG/2 ML VIAL IVPUSH ONE (16:33)
[2023-07-27] MEDS ORDERED: ASPIRIN 81 MG CHEWABLE TABLETS PO ONE (17:40)
[2023-07-27] MEDS ORDERED: ACETAMINOPHEN 325 MG TABLET (FP) ONE (17:56)
[2023-07-27] MEDS ORDERED: ONDANSETRON 4 MG/2 ML VIAL ONE (17:57)
[2023-07-27] MEDS ORDERED: ASPIRIN 81 MG CHEWABLE TABLETS ONE (18:00)
[2023-07-27 18:12] LABS: BASO % 0.2 % (0-2.0); EOS % 0.1 % (0-4.5); HEMATOCRIT 37.3 % (35.4-49); HEMOGLOBIN 12.1 GM/dL (11.7-16.9); LYMPH % 5.2 % (8-40); MCHC 32.5 g/dl (32.0-35.9); MEAN PLT VOLUME 9.3 fl (7.5-11.1); MONO % 4.8 % (3.8-10.2); NEUT % 89.7 % (42.8-82.8); PLATELET COUNT 242 10^3/uL (134-434); RBC 4.34 M/mm3 (4.00-5.60); RDW 14.8 % (11.9-15.9); WHITE BLOOD COUNT 14.2 K/mm3 (4.0-10.0)
[2023-07-27 18:30] LABS: POTASSIUM 4.4 mmol/L (3.5-5.1)
[2023-07-27 18:32] LABS: CALCIUM 8.9 mg/dL (8.5-10.1)
[2023-07-27 18:33] LABS: ALBUMIN 3.5 g/dl (3.4-5.0); BLOOD UREA NITROGEN 21.1 mg/dL (7-18)
[2023-07-27 18:36] LABS: CREATININE 2.6 mg/dL (0.55-1.3)
[2023-07-27 18:37] LABS: BILIRUBIN,TOTAL 0.5 mg/dL (0.2-1)
[2023-07-27 19:50] LABS: HIV INTERPRETATION NEGATIVE (NEGATIVE)
[2023-07-28 02:34] LABS: URINE APPEARANCE CLEAR; URINE BILIRUBIN NEGATIVE (NEGATIVE); URINE COLOR YELLOW; URINE GLUCOSE (UA) NEGATIVE (NEGATIVE); URINE KETONE NEGATIVE (NEGATIVE); URINE LEUK ESTERASE NEGATIVE (NEGATIVE); URINE NITRITE NEGATIVE (NEGATIVE); URINE PROTEIN NEGATIVE (NEGATIVE); URINE UROBILINOGEN 0.2 mg/dL (0.2-1.0)
[2023-07-28 02:50] LABS: HEMATOCRIT 30.9 % (35.4-49); HEMOGLOBIN 10.3 GM/dL (11.7-16.9); MCH 28.7 pg (25.7-33.7); MCHC 33.5 g/dl (32.0-35.9); MEAN CELL VOLUME 85.6 fl (80-96); MEAN PLT VOLUME 9.5 fl (7.5-11.1); PLATELET COUNT 184 10^3/uL (134-434); RBC 3.61 M/mm3 (4.00-5.60); RDW 14.6 % (11.9-15.9); WHITE BLOOD COUNT 9.3 K/mm3 (4.0-10.0)
[2023-07-28] MEDS ORDERED: cefTRIAXone SODIUM 1 GM VIAL IM ONE (03:55)
[2023-07-28] MEDS ORDERED: cefTRIAXone SODIUM 1 GM VIAL ONE (04:43)
[2023-07-28] MEDS ORDERED: DOXYCYCLINE HYCLATE 100 MG VIAL ONE ×3 (04:43→22:06)
[2023-07-28] MEDS: DOXYCYCLINE INJECTION 100 MG in DEXTROSE 5%-WATER 100 ML IVPB SCH ×2 (04:47→22:27)
[2023-07-28] MEDS ORDERED: ALBUTEROL SO4 HFA INHALER IH PRN (04:51)
[2023-07-28] MEDS ORDERED: HEPARIN NA (PORCINE) 5,000 UNITS/ML 1ML VIAL ONE (05:55)
[2023-07-28] MEDS: SODIUM CHLORIDE 1,000 ML IV SCH ×2 (06:02→23:12)
[2023-07-28] MEDS: HEPARIN NA (PORCINE) 5,000 UNITS/ML 1ML VIAL SQ SCH ×3 (06:02→22:27)
[2023-07-28] MEDS: PATIENT'S OWN MEDICATION (NON-FORMULARY) (Ipratropium Bromide [Atrovent Hfa] 12.9 GM Hfa.A IH SCH ×2 (07:41→07:55)
[2023-07-28] MEDS: prednisoLONE ACETATE 1% OPHTH SUSP 5 ML BOTTLE OD SCH ×9 (07:41→22:27)
[2023-07-28] MEDS: INSULIN SLIDING SCALE (NOVOLOG) 1 VIAL SQ SCH ×3 (07:43→16:52)
[2023-07-28] MEDS: NYSTATIN POWDER 100,000 UNITS/GM - 30 GM TOPICAL POWDER TP SCH (10:00)
[2023-07-28] MEDS ORDERED: PATIENT'S OWN MEDICATION (NON-FORMULARY) (Calcipotriene 0.005% Top Crm 60 GM Tube) TP SCH (10:00)
[2023-07-28] MEDS ORDERED: CLOTRIMAZOLE 1% CREAM TP SCH (10:00)
[2023-07-28] MEDS ORDERED: LOSARTAN POTASSIUM 50 MG TABLET PO SCH (10:00)
[2023-07-28] MEDS ORDERED: FLUTICASONE/UMECLIDIN/VILANTER(200-62.5-25 TRELEGY ELLIPTA) INAHLER IH SCH (10:00)
[2023-07-28] MEDS ORDERED: ASPIRIN 81 MG CHEWABLE TABLETS PO SCH (10:00)
[2023-07-28] MEDS: TRIAMCINOLONE ACET 0.1% OINT 15 GM TUBE TP SCH ×2 (10:54→22:27)
[2023-07-28] MEDS: CLOTRIMAZOLE 1% CREAM TP SCH ×2 (11:00→22:27)
[2023-07-28] MEDS ORDERED: SODIUM CHLORIDE 1,000 ML IV STA (11:18)
[2023-07-28] MEDS: PANTOPRAZOLE 40 MG TABLET PO SCH (11:59)
[2023-07-28] MEDS: FLUTICASONE/UMECLIDIN/VILANTER(200-62.5-25 TRELEGY ELLIPTA) INAHLER IH SCH (12:00)
[2023-07-28] MEDS: ASPIRIN COATED 81 MG TABLET.EC PO SCH (12:00)
[2023-07-28 12:14] LABS: ARTERIAL BLD GAS O2 SATURATION 95.6 % (95-98); ARTERIAL BLOOD GAS BASE EXCESS -0.2 mmol/L (-2-2); ARTERIAL BLOOD GAS PO2 78.1 mmHg (80-100); ARTERIAL BLOOD GAS pH 7.403 (7.350-7.450)
[2023-07-28 12:15] LABS: ALLENS TEST POSITIVE
[2023-07-28] MEDS: TAMSULOSIN HCL 0.4 MG CAP PO SCH (22:27)
[2023-07-29] MEDS: INSULIN SLIDING SCALE (NOVOLOG) 1 VIAL SQ SCH ×5 (00:22→22:35)
[2023-07-29] MEDS: prednisoLONE ACETATE 1% OPHTH SUSP 5 ML BOTTLE OD SCH ×10 (00:22→22:47)
[2023-07-29] MEDS: HEPARIN NA (PORCINE) 5,000 UNITS/ML 1ML VIAL SQ SCH ×3 (05:34→22:36)
[2023-07-29] MEDS: SODIUM CHLORIDE 1,000 ML IV SCH (06:08)
[2023-07-29 08:49] LABS: BASO % 0.4 % (0-2.0); EOS % 0.7 % (0-4.5); HEMATOCRIT 30.2 % (35.4-49); HEMOGLOBIN 10.3 GM/dL (11.7-16.9); LYMPH % 15.5 % (8-40); MCH 29.2 pg (25.7-33.7); MCHC 34.1 g/dl (32.0-35.9); MEAN CELL VOLUME 85.5 fl (80-96); MEAN PLT VOLUME 9.6 fl (7.5-11.1); MONO % 11.9 % (3.8-10.2); NEUT % 71.5 % (42.8-82.8); PLATELET COUNT 187 10^3/uL (134-434); RBC 3.53 M/mm3 (4.00-5.60); RDW 14.6 % (11.9-15.9); WHITE BLOOD COUNT 4.8 K/mm3 (4.0-10.0)
[2023-07-29 09:09] LABS: POTASSIUM 4.2 mmol/L (3.5-5.1)
[2023-07-29 09:12] LABS: CALCIUM 8.8 mg/dL (8.5-10.1)
[2023-07-29 09:13] LABS: BLOOD UREA NITROGEN 14.3 mg/dL (7-18)
[2023-07-29 09:16] LABS: CREATININE 1.1 mg/dL (0.55-1.3)
[2023-07-29 09:17] LABS: TOT PROT 6.4 g/dl (6.4-8.2)
[2023-07-29 09:18] LABS: BILIRUBIN,TOTAL 0.4 mg/dL (0.2-1)
[2023-07-29 10:00] LABS: ALBUMIN 2.6 g/dl (3.4-5.0)
[2023-07-29] MEDS ORDERED: CEFTRIAXONE 1 GM/50 ML BAG ONE (10:41)
[2023-07-29] MEDS ORDERED: DOXYCYCLINE HYCLATE 100 MG VIAL ONE (10:41)
[2023-07-29] MEDS: TRIAMCINOLONE ACET 0.1% OINT 15 GM TUBE TP SCH ×2 (10:55→22:37)
[2023-07-29] MEDS: ASPIRIN COATED 81 MG TABLET.EC PO SCH (10:55)
[2023-07-29] MEDS: CLOTRIMAZOLE 1% CREAM TP SCH ×2 (10:55→22:45)
[2023-07-29] MEDS: PANTOPRAZOLE 40 MG TABLET PO SCH (10:56)
[2023-07-29] MEDS: CEFTRIAXONE 1 GM in DEXTROSE 5%-WATER - 50 ML IVPB SCH (10:56)
[2023-07-29] MEDS: FLUTICASONE/UMECLIDIN/VILANTER(200-62.5-25 TRELEGY ELLIPTA) INAHLER IH SCH (10:58)
[2023-07-29] MEDS: NYSTATIN POWDER 100,000 UNITS/GM - 30 GM TOPICAL POWDER TP SCH (10:58)
[2023-07-29] MEDS: FAMOTIDINE 20 MG TABLET PO SCH (14:08)
[2023-07-29] MEDS: DOXYCYCLINE INJECTION 100 MG in DEXTROSE 5%-WATER 100 ML IVPB SCH ×2 (14:09→22:34)
[2023-07-29] MEDS: PATIENT'S OWN MEDICATION (NON-FORMULARY) (Ipratropium Bromide [Atrovent Hfa] 12.9 GM Hfa.A IH SCH (18:08)
[2023-07-29] MEDS: TAMSULOSIN HCL 0.4 MG CAP PO SCH (22:35)
[2023-07-30] MEDS: HEPARIN NA (PORCINE) 5,000 UNITS/ML 1ML VIAL SQ SCH ×3 (06:53→22:45)
[2023-07-30] MEDS: INSULIN SLIDING SCALE (NOVOLOG) 1 VIAL SQ SCH ×4 (07:49→22:46)
[2023-07-30] MEDS: CEFTRIAXONE 1 GM in DEXTROSE 5%-WATER - 50 ML IVPB SCH (10:07)
[2023-07-30] MEDS: FAMOTIDINE 20 MG TABLET PO SCH (10:08)
[2023-07-30] MEDS: ASPIRIN COATED 81 MG TABLET.EC PO SCH (10:08)
[2023-07-30] MEDS: NYSTATIN POWDER 100,000 UNITS/GM - 30 GM TOPICAL POWDER TP SCH (10:09)
[2023-07-30] MEDS: prednisoLONE ACETATE 1% OPHTH SUSP 5 ML BOTTLE OD SCH ×4 (10:10→22:48)
[2023-07-30] MEDS: TRIAMCINOLONE ACET 0.1% OINT 15 GM TUBE TP SCH ×2 (10:10→22:48)
[2023-07-30] MEDS: FLUTICASONE/UMECLIDIN/VILANTER(200-62.5-25 TRELEGY ELLIPTA) INAHLER IH SCH (10:10)
[2023-07-30] MEDS: CLOTRIMAZOLE 1% CREAM TP SCH ×2 (10:16→22:47)
[2023-07-30] MEDS: DOXYCYCLINE INJECTION 100 MG in DEXTROSE 5%-WATER 100 ML IVPB SCH ×2 (11:08→22:47)
[2023-07-30] MEDS ORDERED: ROSUVASTATIN CA 20 MG TABLET PO SCH (22:00)
[2023-07-30] MEDS: TAMSULOSIN HCL 0.4 MG CAP PO SCH (22:45)
[2023-07-31] MEDS: HEPARIN NA (PORCINE) 5,000 UNITS/ML 1ML VIAL SQ SCH ×2 (06:43→14:32)
[2023-07-31] MEDS: INSULIN SLIDING SCALE (NOVOLOG) 1 VIAL SQ SCH ×2 (06:43→11:53)
[2023-07-31 10:21] LABS: BASO % 0.2 % (0-2.0); EOS % 0.4 % (0-4.5); HEMATOCRIT 36.3 % (35.4-49); HEMOGLOBIN 12.2 GM/dL (11.7-16.9); LYMPH % 10.9 % (8-40); MCH 28.6 pg (25.7-33.7); MCHC 33.5 g/dl (32.0-35.9); MEAN CELL VOLUME 85.3 fl (80-96); MEAN PLT VOLUME 9.4 fl (7.5-11.1); MONO % 5.5 % (3.8-10.2); PLATELET COUNT 240 10^3/uL (134-434); RBC 4.26 M/mm3 (4.00-5.60); RDW 14.7 % (11.9-15.9); WHITE BLOOD COUNT 9.1 K/mm3 (4.0-10.0)
[2023-07-31] MEDS: CEFTRIAXONE 1 GM in DEXTROSE 5%-WATER - 50 ML IVPB SCH (10:30)
[2023-07-31] MEDS: FAMOTIDINE 20 MG TABLET PO SCH (10:31)
[2023-07-31] MEDS: ASPIRIN COATED 81 MG TABLET.EC PO SCH (10:31)
[2023-07-31] MEDS: TRIAMCINOLONE ACET 0.1% OINT 15 GM TUBE TP SCH (10:31)
[2023-07-31] MEDS: CLOTRIMAZOLE 1% CREAM TP SCH (10:31)
[2023-07-31] MEDS: FLUTICASONE/UMECLIDIN/VILANTER(200-62.5-25 TRELEGY ELLIPTA) INAHLER IH SCH (10:31)
[2023-07-31] MEDS: NYSTATIN POWDER 100,000 UNITS/GM - 30 GM TOPICAL POWDER TP SCH (10:31)
[2023-07-31] MEDS: prednisoLONE ACETATE 1% OPHTH SUSP 5 ML BOTTLE OD SCH ×2 (10:31→14:32)
[2023-07-31 11:17] LABS: ALBUMIN 3.2 g/dl (3.4-5.0); BILIRUBIN,TOTAL 0.4 mg/dL (0.2-1); BLOOD UREA NITROGEN 14.6 mg/dL (7-18); CALCIUM 9.8 mg/dL (8.5-10.1); CREATININE 1.2 mg/dL (0.55-1.3); POTASSIUM 4.2 mmol/L (3.5-5.1); TOT PROT 7.9 g/dl (6.4-8.2)
[2023-07-31 14:52] VITALS: BP 148/69; PULSE 89; RESP 20; TEMP 98.8
[2023-08-02 16:08] LABS: ATYPICAL pANCA <1:20 titer (Neg:<1:20); C-ANCA <1:20 titer (Neg:<1:20)
== END 2023-07-31 15:44 | disposition home or self-care (01) ==
LOC: JER 13:50 → JERBED 23:26 → J5S 07-29 11:52
PROVIDERS: ADMIT Internal Medicine
PROC: 3E02329 Introduction of Other Anti-infective into Muscle, Percutaneous Approach (ICD-10-PCS; principal; 2023-07-27)
PROC: 3E03329 Introduction of Other Anti-infective into Peripheral Vein, Percutaneous Approach (ICD-10-PCS; 2023-07-27)
PROC: 3E013VG Introduction of Insulin into Subcutaneous Tissue, Percutaneous Approach (ICD-10-PCS; 2023-07-27)
DX: N45.1 Epididymitis (principal); N17.9 Acute kidney failure, unspecified; E11.9 Type 2 diabetes mellitus without complications; E78.5 Hyperlipidemia, unspecified; I25.10 Atherosclerotic heart disease of native coronary artery without angina pectoris; I11.0 Hypertensive heart disease with heart failure; Z79.4 Long term (current) use of insulin; N44.2 Benign cyst of testis; I95.9 Hypotension, unspecified; D64.9 Anemia, unspecified; Z88.0 Allergy status to penicillin
CPT/HCPCS: 0241U-QW; 36415; 36600; 71046-TC-FY; 74176-TC; 76705-TC; 76775-TC; 76870-TC; 80048; 80053; 81003; 82436; 82550; 82570; 82728; 82803; 82962; 83520; 83540; 83550; 83605; 83690; 84133; 84156; 84300; 84484; 85025; 85027; 86140; 86256; 86593; 86780; 87040; 87086; 87186; 87389; 87899; 93005; 93010; 96361; 96365; 96366; 96372; 96375; 99285-25; G0378; J1644

== ENCOUNTER 2023-08-27 12:04 | Inpatient (IN) | payer OTHER ==
[2023-08-27] MEDS ORDERED: SODIUM CHLORIDE 0.9% 500 ML INFUS.BAG IV ONE (13:00)
[2023-08-27] MEDS ORDERED: ACETAMINOPHEN 1000 MG/100 ML BAG IVPB ONE (13:00)
[2023-08-27 14:14] LABS: VENOUS BASE EXCESS 0.8 mmol/L (-2-2); VENOUS O2 SATURATION 91.8 % (70-80); VENOUS PCO2 35.8 mmHg (38-52); VENOUS PH 7.453 (7.310-7.410)
[2023-08-27 14:17] LABS: HEMATOCRIT 32.4 % (35.4-49); HEMOGLOBIN 10.5 GM/dL (11.7-16.9); MCH 28.1 pg (25.7-33.7); MCHC 32.5 g/dl (32.0-35.9); MEAN CELL VOLUME 86.5 fl (80-96); MEAN PLT VOLUME 9.2 fl (7.5-11.1); PLATELET COUNT 207 10^3/uL (134-434); RBC 3.75 M/mm3 (4.00-5.60); RDW 15.8 % (11.9-15.9); WHITE BLOOD COUNT 11.2 K/mm3 (4.0-10.0)
[2023-08-27 14:20] LABS: INR 1.33 (0.83-1.09); PROTHROMBIN TIME (PATIENT) 15.4 SEC (9.7-13.0)
[2023-08-27 14:22] LABS: ACTIVATED PTT 26.9 SECONDS (25.2-36.5)
[2023-08-27] MEDS ORDERED: ACETAMINOPHEN INJECTION 100 ML IVPB ONE (14:31)
[2023-08-27 14:33] LABS: LACTIC ACID 2.3 mmol/L (0.4-2.0)
[2023-08-27 14:34] LABS: POTASSIUM 4.6 mmol/L (3.5-5.1)
[2023-08-27 14:38] LABS: ALBUMIN 3.2 g/dl (3.4-5.0); BLOOD UREA NITROGEN 13.5 mg/dL (7-18); CALCIUM 9.2 mg/dL (8.5-10.1)
[2023-08-27 14:41] LABS: CREATININE 1.5 mg/dL (0.55-1.3)
[2023-08-27 14:43] LABS: BILIRUBIN,TOTAL 0.5 mg/dL (0.2-1); TOT PROT 7.3 g/dl (6.4-8.2)
[2023-08-27 14:55] LABS: ANISOCYTOSIS 0; MACROCYTOSIS 0
[2023-08-27 17:29] LABS: URINE APPEARANCE CLEAR; URINE BILIRUBIN NEGATIVE (NEGATIVE); URINE COLOR YELLOW; URINE GLUCOSE (UA) 1+ (NEGATIVE); URINE KETONE NEGATIVE (NEGATIVE); URINE LEUK ESTERASE NEGATIVE (NEGATIVE); URINE NITRITE NEGATIVE (NEGATIVE); URINE PROTEIN TRACE (NEGATIVE); URINE UROBILINOGEN 0.2 mg/dL (0.2-1.0)
[2023-08-27] MEDS ORDERED: TAMSULOSIN HCL 0.4 MG CAP ONE (22:30)
[2023-08-27] MEDS: TAMSULOSIN HCL 0.4 MG CAP PO SCH (22:34)
[2023-08-28 00:05] LABS: ERYTHROCYTE SEDIMENTATION RATE 77 mm/hr (0-20)
[2023-08-28 07:49] LABS: HEMATOCRIT 30.4 % (35.4-49); HEMOGLOBIN 10.1 GM/dL (11.7-16.9); MCH 28.6 pg (25.7-33.7); MCHC 33.2 g/dl (32.0-35.9); MEAN CELL VOLUME 86.2 fl (80-96); MEAN PLT VOLUME 9.4 fl (7.5-11.1); PLATELET COUNT 191 10^3/uL (134-434); RBC 3.53 M/mm3 (4.00-5.60); RDW 15.5 % (11.9-15.9); WHITE BLOOD COUNT 7.2 K/mm3 (4.0-10.0)
[2023-08-28 08:10] LABS: POTASSIUM 4.6 mmol/L (3.5-5.1)
[2023-08-28 08:17] LABS: CALCIUM 8.8 mg/dL (8.5-10.1)
[2023-08-28 08:19] LABS: ALBUMIN 2.9 g/dl (3.4-5.0); BLOOD UREA NITROGEN 13.6 mg/dL (7-18); MAGNESIUM 1.8 mg/dL (1.8-2.4)
[2023-08-28 08:23] LABS: BILIRUBIN,TOTAL 0.4 mg/dL (0.2-1); TOT PROT 6.9 g/dl (6.4-8.2)
[2023-08-28 12:22] LABS: HIV INTERPRETATION NEGATIVE (NEGATIVE)
[2023-08-28] MEDS: INSULIN ASPART SLIDING SCALE (NOVOLOG) 1 VIAL SQ SCH ×3 (12:48→21:55)
[2023-08-28] MEDS ORDERED: AZTREONAM 1 GM VIAL (RESTRICTED TO ID) ONE (13:27)
[2023-08-28] MEDS ORDERED: PANTOPRAZOLE 40 MG TABLET PO ONE (13:27)
[2023-08-28] MEDS: PANTOPRAZOLE 40 MG TABLET PO SCH (13:30)
[2023-08-28] MEDS: AZTREONAM 1 GM in DEXTROSE 5%-WATER - 50 ML IVPB SCH ×2 (13:30→17:38)
[2023-08-28 18:01] VITALS: BMI 25.7
[2023-08-28] MEDS: ROSUVASTATIN CA 20 MG TABLET PO SCH (21:54)
[2023-08-28] MEDS: INSULIN (LEVEMIR) 100 UNITS/ML UNITS SQ SCH (21:55)
[2023-08-28] MEDS: TAMSULOSIN HCL 0.4 MG CAP PO SCH (21:55)
[2023-08-29] MEDS: AZTREONAM 1 GM in DEXTROSE 5%-WATER - 50 ML IVPB SCH ×3 (01:10→17:14)
[2023-08-29] MEDS: INSULIN ASPART SLIDING SCALE (NOVOLOG) 1 VIAL SQ SCH ×4 (06:01→22:50)
[2023-08-29] MEDS: PANTOPRAZOLE 40 MG TABLET PO SCH (09:18)
[2023-08-29] MEDS: ENOXAPARIN NA (PORCINE) 40 MG/0.4 ML DISP.SYRIN SQ SCH (09:18)
[2023-08-29 10:27] LABS: BLOOD UREA NITROGEN 9.9 mg/dL (7-18); CALCIUM 9.3 mg/dL (8.5-10.1)
[2023-08-29 10:29] LABS: BASO % 0.5 % (0-2.0); EOS % 0.4 % (0-4.5); HEMATOCRIT 31.3 % (35.4-49); HEMOGLOBIN 10.5 GM/dL (11.7-16.9); LYMPH % 17.7 % (8-40); MCH 28.5 pg (25.7-33.7); MCHC 33.7 g/dl (32.0-35.9); MEAN CELL VOLUME 84.5 fl (80-96); MEAN PLT VOLUME 9.9 fl (7.5-11.1); MONO % 9.5 % (3.8-10.2); NEUT % 71.9 % (42.8-82.8); PLATELET COUNT 209 10^3/uL (134-434); RDW 15.6 % (11.9-15.9); WHITE BLOOD COUNT 5.7 K/mm3 (4.0-10.0)
[2023-08-29 10:31] LABS: CREATININE 1.1 mg/dL (0.55-1.3)
[2023-08-29 10:33] LABS: BILIRUBIN,TOTAL 0.4 mg/dL (0.2-1)
[2023-08-29 10:37] LABS: TOT PROT 7.3 g/dl (6.4-8.2)
[2023-08-29] MEDS: ACETAMINOPHEN 1000 MG/100 ML BAG IVPB PRN (14:06)
[2023-08-29 18:00] LABS: PH,URINE 6.5 (5.0-8.0); URINE APPEARANCE CLEAR; URINE BILIRUBIN NEGATIVE (NEGATIVE); URINE COLOR YELLOW; URINE GLUCOSE (UA) NEGATIVE (NEGATIVE); URINE KETONE NEGATIVE (NEGATIVE); URINE LEUK ESTERASE NEGATIVE (NEGATIVE); URINE NITRITE NEGATIVE (NEGATIVE); URINE PROTEIN NEGATIVE (NEGATIVE); URINE UROBILINOGEN 0.2 mg/dL (0.2-1.0)
[2023-08-29] MEDS: TAMSULOSIN HCL 0.4 MG CAP PO SCH (22:48)
[2023-08-29] MEDS: ROSUVASTATIN CA 20 MG TABLET PO SCH (22:48)
[2023-08-29] MEDS: INSULIN (LEVEMIR) 100 UNITS/ML UNITS SQ SCH (22:48)
[2023-08-30] MEDS: AZTREONAM 1 GM in DEXTROSE 5%-WATER - 50 ML IVPB SCH ×3 (01:17→17:40)
[2023-08-30] MEDS: ACETAMINOPHEN 1000 MG/100 ML BAG IVPB PRN (01:18)
[2023-08-30] MEDS: INSULIN ASPART SLIDING SCALE (NOVOLOG) 1 VIAL SQ SCH ×4 (06:07→22:22)
[2023-08-30] MEDS: ENOXAPARIN NA (PORCINE) 40 MG/0.4 ML DISP.SYRIN SQ SCH (09:49)
[2023-08-30] MEDS: PANTOPRAZOLE 40 MG TABLET PO SCH (09:49)
[2023-08-30 09:59] LABS: HEMATOCRIT 31.6 % (35.4-49); HEMOGLOBIN 10.9 GM/dL (11.7-16.9); MCH 28.9 pg (25.7-33.7); MCHC 34.4 g/dl (32.0-35.9); MEAN PLT VOLUME 9.5 fl (7.5-11.1); PLATELET COUNT 220 10^3/uL (134-434); RBC 3.76 M/mm3 (4.00-5.60); RDW 15.2 % (11.9-15.9)
[2023-08-30] MEDS ORDERED: FLUTICASONE/UMECLIDIN/VILANTER(200-62.5-25 TRELEGY ELLIPTA) INAHLER IH SCH (10:00)
[2023-08-30] MEDS ORDERED: PATIENT'S OWN MEDICATION (NON-FORMULARY) (Calcipotriene 0.005% Top Crm 60 GM Tube) TP SCH (10:00)
[2023-08-30 10:19] LABS: CALCIUM 8.7 mg/dL (8.5-10.1)
[2023-08-30 10:20] LABS: BLOOD UREA NITROGEN 11.9 mg/dL (7-18)
[2023-08-30 10:23] LABS: CREATININE 1.1 mg/dL (0.55-1.3)
[2023-08-30] MEDS: TRIAMCINOLONE ACET 0.1% OINT 15 GM TUBE TP SCH ×2 (13:19→22:28)
[2023-08-30] MEDS: prednisoLONE ACETATE 1% OPHTH SUSP 5 ML BOTTLE OU SCH ×2 (13:19→22:04)
[2023-08-30] MEDS ORDERED: IOHEXOL (OMNIPAQUE PO) 12 MG/ML - 500 ML BOTTLE PO ONE (14:53)
[2023-08-30] MEDS: ACETAMINOPHEN 325 MG TABLET (FP) PO PRN ×2 (18:50→19:52)
[2023-08-30] MEDS: TAMSULOSIN HCL 0.4 MG CAP PO SCH (22:02)
[2023-08-30] MEDS: ROSUVASTATIN CA 20 MG TABLET PO SCH (22:02)
[2023-08-30] MEDS: INSULIN (LEVEMIR) 100 UNITS/ML UNITS SQ SCH (22:22)
[2023-08-31] MEDS: AZTREONAM 1 GM in DEXTROSE 5%-WATER - 50 ML IVPB SCH ×2 (02:00→09:14)
[2023-08-31] MEDS: INSULIN ASPART SLIDING SCALE (NOVOLOG) 1 VIAL SQ SCH ×4 (06:23→22:15)
[2023-08-31] MEDS: ENOXAPARIN NA (PORCINE) 40 MG/0.4 ML DISP.SYRIN SQ SCH (09:13)
[2023-08-31] MEDS: PANTOPRAZOLE 40 MG TABLET PO SCH (09:14)
[2023-08-31] MEDS: TRIAMCINOLONE ACET 0.1% OINT 15 GM TUBE TP SCH ×2 (09:15→22:16)
[2023-08-31] MEDS: prednisoLONE ACETATE 1% OPHTH SUSP 5 ML BOTTLE OU SCH (09:15)
[2023-08-31] MEDS: FLUTICASONE/UMECLIDIN/VILANTER(200-62.5-25 TRELEGY ELLIPTA) INAHLER IH SCH (09:16)
[2023-08-31 10:20] LABS: HEMATOCRIT 32.8 % (35.4-49); HEMOGLOBIN 10.9 GM/dL (11.7-16.9); MCH 28.1 pg (25.7-33.7); MCHC 33.1 g/dl (32.0-35.9); MEAN CELL VOLUME 84.9 fl (80-96); MEAN PLT VOLUME 9.6 fl (7.5-11.1); PLATELET COUNT 241 10^3/uL (134-434); RBC 3.86 M/mm3 (4.00-5.60); RDW 15.5 % (11.9-15.9); WHITE BLOOD COUNT 8.6 K/mm3 (4.0-10.0)
[2023-08-31 10:30] LABS: POTASSIUM 4.4 mmol/L (3.5-5.1)
[2023-08-31 10:31] LABS: CALCIUM 9.1 mg/dL (8.5-10.1)
[2023-08-31 10:33] LABS: BLOOD UREA NITROGEN 15.2 mg/dL (7-18)
[2023-08-31 10:35] LABS: CREATININE 1.1 mg/dL (0.55-1.3)
[2023-08-31] MEDS: TAMSULOSIN HCL 0.4 MG CAP PO SCH (22:14)
[2023-08-31] MEDS: INSULIN (LEVEMIR) 100 UNITS/ML UNITS SQ SCH (22:14)
[2023-08-31] MEDS: ROSUVASTATIN CA 20 MG TABLET PO SCH (22:14)
[2023-09-01] MEDS: INSULIN ASPART SLIDING SCALE (NOVOLOG) 1 VIAL SQ SCH ×4 (06:14→22:24)
[2023-09-01] MEDS: prednisoLONE ACETATE 1% OPHTH SUSP 5 ML BOTTLE OU SCH (09:51)
[2023-09-01] MEDS: PANTOPRAZOLE 40 MG TABLET PO SCH (09:51)
[2023-09-01] MEDS: FLUTICASONE/UMECLIDIN/VILANTER(200-62.5-25 TRELEGY ELLIPTA) INAHLER IH SCH (09:51)
[2023-09-01] MEDS: ENOXAPARIN NA (PORCINE) 40 MG/0.4 ML DISP.SYRIN SQ SCH (09:51)
[2023-09-01] MEDS: TRIAMCINOLONE ACET 0.1% OINT 15 GM TUBE TP SCH ×2 (09:51→22:30)
[2023-09-01] MEDS: ROSUVASTATIN CA 20 MG TABLET PO SCH (22:23)
[2023-09-01] MEDS: INSULIN (LEVEMIR) 100 UNITS/ML UNITS SQ SCH (22:24)
[2023-09-01] MEDS: TAMSULOSIN HCL 0.4 MG CAP PO SCH (22:24)
[2023-09-01 23:45] LABS: URINE APPEARANCE CLEAR; URINE BILIRUBIN NEGATIVE (NEGATIVE); URINE COLOR YELLOW; URINE GLUCOSE (UA) 1+ (NEGATIVE); URINE KETONE NEGATIVE (NEGATIVE); URINE LEUK ESTERASE NEGATIVE (NEGATIVE); URINE NITRITE NEGATIVE (NEGATIVE); URINE PROTEIN NEGATIVE (NEGATIVE); URINE UROBILINOGEN 0.2 mg/dL (0.2-1.0)
[2023-09-02] MEDS: INSULIN ASPART SLIDING SCALE (NOVOLOG) 1 VIAL SQ SCH ×2 (06:25→11:44)
[2023-09-02 07:14] VITALS: BP 156/74; PULSE 68; TEMP 98.5
[2023-09-02 08:26] VITALS: RESP 16
[2023-09-02] MEDS: FLUTICASONE/UMECLIDIN/VILANTER(200-62.5-25 TRELEGY ELLIPTA) INAHLER IH SCH (09:18)
[2023-09-02] MEDS: prednisoLONE ACETATE 1% OPHTH SUSP 5 ML BOTTLE OU SCH (09:18)
[2023-09-02] MEDS: PANTOPRAZOLE 40 MG TABLET PO SCH (09:19)
[2023-09-02] MEDS: TRIAMCINOLONE ACET 0.1% OINT 15 GM TUBE TP SCH (09:19)
[2023-09-02] MEDS: ENOXAPARIN NA (PORCINE) 40 MG/0.4 ML DISP.SYRIN SQ SCH (09:19)
[2023-09-04 16:07] LABS: E.chaff HME IgG Negative (Neg:<1:64)
== END 2023-09-02 13:06 | disposition home or self-care (01) | DRG 864 ==
LOC: JER 12:04 → JERBED 19:22 → J5S 08-28 17:30
PROVIDERS: ADMIT Internal Medicine
DX: R50.9 Fever, unspecified (principal); J44.9 Chronic obstructive pulmonary disease, unspecified; I10 Essential (primary) hypertension; E78.5 Hyperlipidemia, unspecified; E11.9 Type 2 diabetes mellitus without complications; G47.30 Sleep apnea, unspecified; Z79.4 Long term (current) use of insulin; E86.0 Dehydration; R07.89 Other chest pain; N40.0 Benign prostatic hyperplasia without lower urinary tract symptoms; L40.9 Psoriasis, unspecified; K21.9 Gastro-esophageal reflux disease without esophagitis
CPT/HCPCS: 0241U-QW; 36415; 71045-TC-FY; 71250-TC; 74176-TC; 76870-TC; 80048; 80053; 81003; 82803; 82962; 83036; 83605; 83690; 83735; 84100; 84484; 85025; 85027; 85379; 85610; 85651; 85730; 86140; 86618; 86666; 86850; 86900; 86901; 87040; 87086; 87186; 87252; 87389; 87491; 87591; 93005; 93010; 93306-TC; 99285-25; Q9963

== ENCOUNTER 2024-05-08 10:46 | Observation (INO) | payer OTHER ==
[2024-05-08 11:11] VITALS: BMI 60.2
[2024-05-08] MEDS: ALBUTEROL SO4 2.5/IPRATROPIUM 0.5 INH SOL 3 ML VIAL.NEB. NEB SCH (11:35)
[2024-05-08] MEDS ORDERED: methylPREDNISolone NA SUCC 125 MG/2 ML VIAL ONE (11:57)
[2024-05-08 12:00] LABS: BASO % 0.1 % (0-2.0); EOS % 0.1 % (0-4.5); HEMATOCRIT 37.3 % (35.4-49); HEMOGLOBIN 12.6 GM/dL (11.7-16.9); LYMPH % 8.1 % (8-40); MCH 29.1 pg (25.7-33.7); MCHC 33.7 g/dl (32.0-35.9); MEAN CELL VOLUME 86.4 fl (80-96); MONO % 6.3 % (3.8-10.2); NEUT % 85.4 % (42.8-82.8); PLATELET COUNT 162 10^3/uL (134-434); RBC 4.32 M/mm3 (4.00-5.60); RDW 14.2 % (11.9-15.9); WHITE BLOOD COUNT 7.9 K/mm3 (4.0-10.0)
[2024-05-08] MEDS: methylPREDNISolone NA SUCC 125 MG/2 ML VIAL IVPB ONE (12:02)
[2024-05-08 12:04] LABS: VENOUS BASE EXCESS 0.8 mmol/L (-2-2); VENOUS O2 SATURATION 58.5 % (70-80); VENOUS PCO2 43.6 mmHg (38-52); VENOUS PH 7.393 (7.310-7.410)
[2024-05-08 12:19] LABS: POTASSIUM 4.3 mmol/L (3.5-5.1)
[2024-05-08 12:21] LABS: CALCIUM 8.7 mg/dL (8.5-10.1)
[2024-05-08 12:22] LABS: ALBUMIN 3.1 g/dl (3.4-5.0); BLOOD UREA NITROGEN 31.4 mg/dL (7-18)
[2024-05-08 12:25] LABS: CREATININE 1.8 mg/dL (0.55-1.3)
[2024-05-08 12:26] LABS: BILIRUBIN,TOTAL 0.7 mg/dL (0.2-1); TOT PROT 7.1 g/dl (6.4-8.2)
[2024-05-08] MEDS: SODIUM CHLORIDE 0.9% 500 ML INFUS.BAG IV ONE (14:32)
[2024-05-08] MEDS ORDERED: PANTOPRAZOLE SODIUM 40 MG VIAL ONE ×2 (18:08→18:26)
[2024-05-08] MEDS: PANTOPRAZOLE SODIUM 40 MG VIAL IVPUSH SCH (18:27)
[2024-05-08 19:41] VITALS: RESP 18
[2024-05-08] MEDS: MAG HYDROX/AL HYDROX/SIMETH 30 ML UNIT-DOSE CUP PO PRN (21:45)
[2024-05-08] MEDS: HEPARIN NA (PORCINE) 5,000 UNITS/ML 1ML VIAL SQ SCH (21:45)
[2024-05-08] MEDS: INSULIN ASPART SLIDING SCALE (NOVOLOG) 1 VIAL SQ SCH (21:54)
[2024-05-09] MEDS: SODIUM CHLORIDE 1,000 ML IV SCH (06:12)
[2024-05-09 06:58] VITALS: TEMP 97.5
[2024-05-09] MEDS: TAMSULOSIN HCL 0.4 MG CAP PO SCH (09:57)
[2024-05-09] MEDS: ASPIRIN 81 MG CHEWABLE TABLETS PO SCH (09:57)
[2024-05-09 10:15] LABS: HEMATOCRIT 38.3 % (35.4-49); HEMOGLOBIN 13.2 GM/dL (11.7-16.9); MCH 29.5 pg (25.7-33.7); MCHC 34.4 g/dl (32.0-35.9); MEAN CELL VOLUME 85.7 fl (80-96); MEAN PLT VOLUME 8.7 fl (7.5-11.1); PLATELET COUNT 175 10^3/uL (134-434); RBC 4.47 M/mm3 (4.00-5.60); RDW 14.4 % (11.9-15.9); WHITE BLOOD COUNT 10.1 K/mm3 (4.0-10.0)
[2024-05-09 10:26] LABS: POTASSIUM 4.4 mmol/L (3.5-5.1)
[2024-05-09 10:29] LABS: BLOOD UREA NITROGEN 30.9 mg/dL (7-18); CALCIUM 9.2 mg/dL (8.5-10.1)
[2024-05-09 10:32] LABS: CREATININE 1.3 mg/dL (0.55-1.3)
[2024-05-09 13:21] VITALS: BP 130/78; PULSE 60
[2024-05-09] MEDS ORDERED: ROSUVASTATIN CA 20 MG TABLET PO SCH (22:00)
== END 2024-05-09 13:27 | disposition home or self-care (01) ==
LOC: JER 10:46 → JERBED 16:48 → J4S 18:54
PROVIDERS: ADMIT Internal Medicine; ATTEND Internal Medicine
PROC: 3E013VG Introduction of Insulin into Subcutaneous Tissue, Percutaneous Approach (ICD-10-PCS; principal; 2024-05-08)
PROC: 3E023GC Introduction of Other Therapeutic Substance into Muscle, Percutaneous Approach (ICD-10-PCS; 2024-05-08)
PROC: 3E0F7GC Introduction of Other Therapeutic Substance into Respiratory Tract, Via Natural or Artificial Opening (ICD-10-PCS; 2024-05-08)
PROC: 3E0337Z Introduction of Electrolytic and Water Balance Substance into Peripheral Vein, Percutaneous Approach (ICD-10-PCS; 2024-05-08)
DX: J44.1 Chronic obstructive pulmonary disease with (acute) exacerbation (principal); R07.9 Chest pain, unspecified; E11.9 Type 2 diabetes mellitus without complications; E78.5 Hyperlipidemia, unspecified; R10.13 Epigastric pain; I11.9 Hypertensive heart disease without heart failure; Z88.0 Allergy status to penicillin; K21.9 Gastro-esophageal reflux disease without esophagitis; G47.33 Obstructive sleep apnea (adult) (pediatric); Z91.199 Patient's noncompliance with other medical treatment and regimen due to unspecified reason
CPT/HCPCS: 0241U-QW; 36415; 71046-TC-FY; 73110-TC-RT-FY; 73130-TC-RT-FY; 80048; 80053; 82803; 82962; 83880; 84484; 85025; 85027; 93005; 93010; 94640; 96361; 96372; 96374; 96375; 99285-25; G0378; J1644

== ENCOUNTER 2024-08-21 11:25 | Observation (INO) | payer OTHER ==
[2024-08-21 12:15] VITALS: BMI 27.3
[2024-08-21 12:57] LABS: BASO % 0.5 % (0-2.0); EOS % 0.8 % (0-4.5); HEMATOCRIT 41.1 % (35.4-49); HEMOGLOBIN 13.5 GM/dL (11.7-16.9); LYMPH % 12.4 % (8-40); MCH 27.9 pg (25.7-33.7); MCHC 32.9 g/dl (32.0-35.9); MEAN CELL VOLUME 84.7 fl (80-96); MEAN PLT VOLUME 9.5 fl (7.5-11.1); MONO % 5.1 % (3.8-10.2); NEUT % 81.2 % (42.8-82.8); PLATELET COUNT 263 10^3/uL (134-434); RBC 4.85 M/mm3 (4.00-5.60); RDW 17.1 % (11.9-15.9); WHITE BLOOD COUNT 6.8 K/mm3 (4.0-10.0)
[2024-08-21 13:29] LABS: POTASSIUM 4.3 mmol/L (3.5-5.1)
[2024-08-21 13:31] LABS: CALCIUM 9.4 mg/dL (8.5-10.1)
[2024-08-21 13:32] LABS: ALBUMIN 3.8 g/dl (3.4-5.0); BLOOD UREA NITROGEN 15.4 mg/dL (7-18)
[2024-08-21 13:35] LABS: CREATININE 1.5 mg/dL (0.55-1.3)
[2024-08-21 13:36] LABS: BILIRUBIN,TOTAL 0.4 mg/dL (0.2-1); TOT PROT 8.3 g/dl (6.4-8.2)
[2024-08-21] MEDS: SODIUM CHLORIDE 0.9% 500 ML INFUS.BAG IV ONE (14:20)
[2024-08-21] MEDS ORDERED: ALBUTEROL SO4 HFA INHALER IH PRN (17:56)
[2024-08-21] MEDS: LACTATED RINGERS SOLUTION 1,000 ML/1,000 ML INFUS.BAG IV SCH (18:41)
[2024-08-21] MEDS ORDERED: HEPARIN NA (PORCINE) 5,000 UNITS/ML 1ML VIAL ONE (22:03)
[2024-08-21] MEDS ORDERED: GABAPENTIN 100 MG CAPSULE ONE (22:03)
[2024-08-21] MEDS ORDERED: TAMSULOSIN HCL 0.4 MG CAP ONE (22:03)
[2024-08-21] MEDS: INSULIN ASPART SLIDING SCALE (NOVOLOG) 1 VIAL SQ SCH (22:54)
[2024-08-21] MEDS: GABAPENTIN 100 MG CAPSULE PO SCH (22:54)
[2024-08-21] MEDS: HEPARIN NA (PORCINE) 5,000 UNITS/ML 1ML VIAL SQ SCH (22:54)
[2024-08-21] MEDS: TAMSULOSIN HCL 0.4 MG CAP PO SCH (22:54)
[2024-08-22] MEDS ORDERED: GABAPENTIN 100 MG CAPSULE ONE (06:04)
[2024-08-22] MEDS ORDERED: HEPARIN NA (PORCINE) 5,000 UNITS/ML 1ML VIAL ONE (06:05)
[2024-08-22 07:59] LABS: BASO % 0.5 % (0-2.0); EOS % 2.7 % (0-4.5); HEMOGLOBIN 11.9 GM/dL (11.7-16.9); LYMPH % 24.7 % (8-40); MCH 28.1 pg (25.7-33.7); MCHC 33.1 g/dl (32.0-35.9); MEAN CELL VOLUME 84.8 fl (80-96); MEAN PLT VOLUME 9.5 fl (7.5-11.1); MONO % 9.2 % (3.8-10.2); NEUT % 62.9 % (42.8-82.8); PLATELET COUNT 209 10^3/uL (134-434); RBC 4.24 M/mm3 (4.00-5.60); RDW 16.9 % (11.9-15.9); WHITE BLOOD COUNT 4.5 K/mm3 (4.0-10.0)
[2024-08-22 08:13] LABS: POTASSIUM 4.2 mmol/L (3.5-5.1)
[2024-08-22 08:16] LABS: CALCIUM 8.8 mg/dL (8.5-10.1)
[2024-08-22 08:17] LABS: BLOOD UREA NITROGEN 14.5 mg/dL (7-18); MAGNESIUM 1.9 mg/dL (1.8-2.4)
[2024-08-22 08:20] LABS: CREATININE 1.1 mg/dL (0.55-1.3); PHOSPHOROUS 3.5 mg/dL (2.5-4.9)
[2024-08-22 08:21] LABS: BILIRUBIN,TOTAL 0.4 mg/dL (0.2-1); TOT PROT 6.7 g/dl (6.4-8.2)
[2024-08-22 08:24] LABS: ALBUMIN 2.9 g/dl (3.4-5.0)
[2024-08-22] MEDS ORDERED: PANTOPRAZOLE 40 MG TABLET PO ONE (08:52)
[2024-08-22] MEDS ORDERED: ASPIRIN 81 MG CHEWABLE TABLETS ONE (08:52)
[2024-08-22] MEDS: PANTOPRAZOLE 40 MG TABLET PO SCH (09:00)
[2024-08-22] MEDS: ASPIRIN 81 MG CHEWABLE TABLETS PO SCH (09:00)
[2024-08-22] MEDS ORDERED: FLUTICASONE/UMECLIDIN/VILANTER(200-62.5-25 TRELEGY ELLIPTA) INAHLER IH SCH (10:00)
[2024-08-22 12:34] VITALS: BP 135/75; PULSE 71; RESP 20; TEMP 98.4
== END 2024-08-22 12:37 | disposition home or self-care (01) ==
LOC: JER 11:25 → JERBED 15:24 → J2W 08-22 09:48
PROVIDERS: ADMIT Internal Medicine; ATTEND Internal Medicine
PROC: 3E013VG Introduction of Insulin into Subcutaneous Tissue, Percutaneous Approach (ICD-10-PCS; principal; 2024-08-21)
PROC: 3E013GC Introduction of Other Therapeutic Substance into Subcutaneous Tissue, Percutaneous Approach (ICD-10-PCS; 2024-08-21)
DX: R07.89 Other chest pain (principal); I10 Essential (primary) hypertension; E11.9 Type 2 diabetes mellitus without complications; E78.5 Hyperlipidemia, unspecified; N40.0 Benign prostatic hyperplasia without lower urinary tract symptoms; Z79.4 Long term (current) use of insulin; Z88.0 Allergy status to penicillin
CPT/HCPCS: 36415; 71045-TC-FY; 80053; 82962; 83735; 84100; 84484; 85025; 93005; 93010; 96372; 99285-25; G0378; J1644